=== PATIENT | male | born 1955 | race Caucasian/White ===

== ENCOUNTER → 2016-06-04 | Outpatient (CLI) | payer BC ==
[~2016-06-04] MED LIST: ACET325T96 PO; CITA20TA9 PO; EMPTY 8 DRAM VIAL ONE; FEXO1TAB45 PO; GADAVIST IV PRN; LEVE100021 PO; MOME50SP5; ONFI 10 MG PO; PROC1TAB5 PO; VNCI1 IV; [UNRECOGNIZED DRUG - CODE] PO; [UNRECOGNIZED DRUG - CODE] PO; [UNRECOGNIZED DRUG - OTHER] OPB
--- NOTE | 2016-06-04 21:08 | DIAGNOSTIC IMAGING REPORT ---
MRI OF THE BRAIN COMBO CLINICAL HISTORY: Seizure. History of Oligodendroglioma resection. COMPARISON STUDY: Previous MRI examinations of the brain, most recently dated 04/05/2016. TECHNIQUE: MRI of the brain was performed utilizing various T1 and T2-weighted sequences in the axial, sagittal, and coronal planes. Contrast-enhanced sequences were acquired following the administration of 7 cc of Gadavist. The examination is performed utilizing the seizure protocol. FINDINGS: Brain parenchyma: Again seen is encephalomalacia in the high right posterior parietal lobe from previous tumor resection. Serpiginous foci of surrounding T1 hyperintense signal is unchanged from prior studies, and likely represents postoperative gliosis/hemosiderin deposition. Overlying dural thickening is likely related to previous surgery. There is significant T2 signal abnormality identified surrounding the operative site, extending anteriorly along the superior margin of the sylvian fissure. This involves both white matter and thompson matter. No abnormal postcontrast enhancement is seen and this is unchanged from 04/05/2016. There is mild subcortical and periventricular microangiopathic disease. There is no hemorrhage or mass effect. There is no restricted diffusion to suggest acute ischemia. No extra-axial fluid collection is seen. The cerebellar tonsils are normal in configuration. Ventricles, sulci, and cisterns: Normal in configuration. Pituitary and sella: Unremarkable. Intracranial vasculature: Normal flow voids are maintained at the skull base. Orbits: The bony orbits are grossly intact. Orbital contents are normal in appearance. Sinuses and mastoids: A retention cyst is again seen in the left maxillary antrum. The remaining paranasal sinuses are clear. The mastoid air cells are well pneumatized. Calvarium: There are postoperative changes from right parietal craniotomy. No destructive bony lesion is seen. Cervical cord: Partially visualized cervical spinal cord is normal in morphology and signal intensity. IMPRESSION: 1. No acute intracranial abnormality. 2. Again seen are postoperative changes from right parietal lobe tumor resection. 3. Again seen is T2 hyperintense signal abnormality adjacent to the operative site which extends anteriorly along the sylvian fissure. There is no abnormal enhancement identified, and this is indeterminant. This is unchanged from recent prior studies and could represent postoperative/posttreatment change. Recurrent/residual tumor with be impossible to exclude by imaging. Electronically signed by: Carlos Yin M.D. 06/04/2016 9:07 PM Dictated Date/Time: 06/04/2016 9:01 PM
== END | disposition home or self-care (01) ==
LOC: C.MRI 19:03
PROVIDERS: ATTEND Internal Medicine Hematology & Oncology
DX: C71.2 Malignant neoplasm of temporal lobe (principal); R90.89 Other abnormal findings on diagnostic imaging of central nervous system

== ENCOUNTER → 2016-08-06 | Outpatient (CLI) | payer BC ==
[~2016-08-06] MED LIST changes: -EMPTY 8 DRAM VIAL ONE
--- NOTE | 2016-08-06 14:46 | DIAGNOSTIC IMAGING REPORT ---
MRI OF THE BRAIN WITHOUT AND WITH IV CONTRAST CLINICAL HISTORY: OLIGODENDROGLIOMA COMPARISON STUDY: 06/04/2016 TECHNIQUE: MRI of the brain was performed from the vertex to the skull base utilizing various T1 and T2 weighted sequences. Following the IV administration of 7 mL of Gadavist contrast, additional enhanced images were obtained. FINDINGS: Sagittal T1, axial diffusion, proton density and T2 weighted axial, coronal FLAIR, and pre and post axial T1-weighted images were acquired. These were supplemented with post gadolinium coronal T1 weighted images. There are postsurgical changes of a right parietal craniotomy. There is a stable cavity at the resection site. There are surrounding blood products and T2 and flair edema. There is no significant postcontrast enhancement. Axial diffusion-weighted images reveal no evidence of acute or subacute infarction. There is no evidence of ventricular dilatation. Proton density T2-weighted and FLAIR images reveal edema surrounding the right parietal lobe resection site. There are no abnormal flow voids. There is no evidence of pathologic enhancement. IMPRESSION: 1. Postsurgical changes of a right craniotomy and parietal lobe tumor resection 2. Stable T2 and FLAIR signal abnormalities persist adjacent to the operative site. 3. No evidence of pathologic enhancement 4. No evidence of acute or subacute infarction 5. No evidence of hydrocephalus 6. No significant change from the preceding study Electronically signed by: Ronald Castle M.D. 08/06/2016 2:45 PM Dictated Date/Time: 08/06/2016 2:15 PM
== END | disposition home or self-care (01) ==
LOC: C.MRI 11:50
PROVIDERS: ATTEND Nurse Practitioner Family
DX: C71.2 Malignant neoplasm of temporal lobe (principal); Z98.890 Other specified postprocedural states

== ENCOUNTER → 2016-11-08 | Outpatient (CLI) | payer BC ==
--- NOTE | 2016-11-08 11:33 | DIAGNOSTIC IMAGING REPORT ---
BRAIN COMBO HISTORY:61 yearsMaleOLIGODENDROGLIOMA . History of prior chemotherapy and radiation 2014 and 2015. Craniotomy was performed in July 2006. This is a follow-up exam without new symptomatology. COMPARISON: Brain MR 08/06/2016, 09/28/2015 and 08/21/2005 TECHNIQUE: Multiplanar multisequence MRI of the brain was obtained both with and without the use of 7.4 mL Gadavist. FINDINGS: There is no restricted diffusion. The midline structures including the corpus callosum, brainstem, optic chiasm and cerebellar tonsils are unremarkable the sagittal T1 series. There is a 5 x 8 x 5 mm circumscribed low T1 and high T2 signal lesion within the right pituitary gland which appears unchanged from 09/28/2015. On study dated 10/25/2014, this lesion only measured up to 4 mm. Postsurgical changes of prior right parietal craniotomy and tumor resection with a persistent T2 hyperintense cavity of the right parietal lobe, 3.3 x 2.5 cm which appears unchanged. There is associated encephalomalacia and areas of increased T2/FLAIR signal adjacent to the cavity suggesting areas of gliosis. Peripheral blooming artifact and minimal enhancement is unchanged. No acute intracranial hemorrhage, midline shift, hydrocephalus, new mass or extra-axial collections. Mild central atrophy. There are a few areas of scattered T2/flair prolongation within the subcortical and periventricular white matter of the humeral hemispheres bilaterally which is unchanged suggesting chronic microischemic changes. Post contrast images moderately motion degraded. There is mild ethmoid and maxillary sinus disease. Flow voids at the skull base appear unremarkable. She is are within normal limits. IMPRESSION: 1. Stable exam with redemonstration of postsurgical changes consisting of prior right parietal craniotomy with mass resection. Surgical cavity within the right parietal lobe distribution with surrounding gliosis and minimal enhancement appears unchanged. No new areas of enhancement or suspicious abnormalities are identified. 2. No hydrocephalus. 3. Mild Background cerebral atrophy with chronic microvascular ischemic changes. 4. Circumscribed 5 x 8 x 5 mm nonenhancing cystic lesion of the right pituitary gland appears unchanged from 09/28/2015, however appears slightly enlarged from study dated 10/25/2014. Differential considerations would include cystic adenoma or arachnoid cyst. Attention on follow-up recommended. The above report was generated using voice recognition software. It may contain grammatical, syntax or spelling errors. Electronically signed by: Van Corrales 11/08/2016 11:32 AM Dictated Date/Time: 11/08/2016 11:16 AM
== END | disposition home or self-care (01) ==
LOC: C.MRIBC 08:32
PROVIDERS: ATTEND Nurse Practitioner Family
DX: H34.8192 Central retinal vein occlusion, unspecified eye, stable (principal)

== ENCOUNTER → 2017-03-03 | Outpatient (CLI) | payer BC ==
--- NOTE | 2017-03-03 17:34 | DIAGNOSTIC IMAGING REPORT ---
MRI OF THE BRAIN WITHOUT AND WITH IV CONTRAST CLINICAL HISTORY: Oligodendroglioma. COMPARISON STUDY: MRI of the brain November 18, 2016. TECHNIQUE: Utilizing a 1.5 Kathryn magnet and dedicated coil, multiplanar, multiecho imaging of the brain was performed pre and postcontrast administration. IV administration of 7.5 mL of Gadavist contrast was uneventful. FINDINGS: There are no areas of restricted diffusion. No acute intracranial hemorrhage, midline shift or mass effect is present. A previous right parietal craniotomy is noted. Resection cavity is unchanged in size, measuring 3.3 x 2.5 cm. There is inherent T1 hyperintensity along the resection margin which is unchanged and suggests gliosis or laminar necrosis. No definite enhancement is noted. Adjacent T2 hyperintensity is unchanged. A 8 mm x 5 mm T2 hyperintense right pituitary gland lesion is unchanged. This demonstrates no significant enhancement. There are no additional intracranial masses. Ventricular system is normal. Basilar cisterns are patent. There are no extra-axial collections. Flow-voids in the major intracranial vessels are present. Calvarial signal is unremarkable. IMPRESSION: 1. No MRI evidence for recurrent or residual malignancy status post right craniotomy. No enhancement along the resection margin. Stable adjacent T2 hyperintensity. 2. No change in the 8 mm x 5 mm cystic right pituitary gland lesion. Electronically signed by: Marty Mckinnon M.D. 03/03/2017 5:33 PM Dictated Date/Time: 03/03/2017 4:11 PM
== END | disposition home or self-care (01) ==
LOC: C.MRI 14:44
PROVIDERS: ATTEND Nurse Practitioner Family
DX: C71.2 Malignant neoplasm of temporal lobe (principal)

== ENCOUNTER → 2017-05-29 | Outpatient (CLI) | payer OTHER ==
[~2017-05-29] MED LIST changes: -GADAVIST IV PRN
== END | disposition home or self-care (01) ==
LOC: C.LAB1850 11:01
PROVIDERS: ATTEND Urology
DX: N40.1 Benign prostatic hyperplasia with lower urinary tract symptoms (principal); R36.1 Hematospermia

== ENCOUNTER → 2017-06-05 | Outpatient (CLI) | payer OTHER ==
--- NOTE | 2017-06-05 15:03 | DIAGNOSTIC IMAGING REPORT ---
MRI OF THE BRAIN COMBO CLINICAL HISTORY: Seizure. History of Oligodendroglioma resection. COMPARISON STUDY: Previous MRI examinations of the brain, most recently dated 03/03/2017. TECHNIQUE: MRI of the brain was performed utilizing various T1 and T2-weighted sequences in the axial, sagittal, and coronal planes. Contrast-enhanced sequences were acquired following the administration of 7.5 cc of Gadavist. The examination is performed utilizing the seizure protocol. FINDINGS: Brain parenchyma: Again seen is encephalomalacia in the high right posterior parietal lobe at the site of previous tumor resection. Serpiginous foci of surrounding T1 hyperintense signal is unchanged from prior studies and likely represents postoperative gliosis/hemosiderin deposition. Overlying dural thickening is unchanged and likely related to previous surgery. There is unchanged T2 signal abnormality subjacent to the resection cavity involving both white matter and thompson matter. No abnormal postcontrast enhancement is seen and this is unchanged from 03/03/2017. There is mild subcortical and periventricular microangiopathic disease. There is no hemorrhage or mass effect. There is no restricted diffusion to suggest acute ischemia. No extra-axial fluid collection is seen. The cerebellar tonsils are normal in configuration. Ventricles, sulci, and cisterns: Normal in configuration. Pituitary and sella: A 7 mm cystic focus in the pituitary gland is unchanged. Intracranial vasculature: Normal flow voids are maintained at the skull base. Orbits: The bony orbits are grossly intact. Orbital contents are normal in appearance. Sinuses and mastoids: A retention cyst is again seen in the left maxillary antrum. The remaining paranasal sinuses are clear. The mastoid air cells are well pneumatized. Calvarium: There are postoperative changes from right parietal craniotomy. No destructive bony lesion is seen. Cervical cord: Partially visualized cervical spinal cord is normal in morphology and signal intensity. IMPRESSION: 1. No acute intracranial abnormality. 2. Again seen are postoperative changes from right parietal lobe tumor resection. 3. There is no evidence of recurrent or residual enhancing tumor at the resection site. T2 hyperintense signal subjacent to the operative site is unchanged. Electronically signed by: Carlos Yin M.D. 06/05/2017 3:01 PM Dictated Date/Time: 06/05/2017 2:55 PM
== END | disposition home or self-care (01) ==
LOC: C.MRI 14:00
PROVIDERS: ATTEND Internal Medicine Hematology & Oncology
DX: C71.2 Malignant neoplasm of temporal lobe (principal)

== ENCOUNTER → 2017-09-16 | Outpatient (CLI) | payer OTHER ==
[~2017-09-16] MED LIST changes: +ACET-1693 PO; -ACET325T96 PO; +PROC10TA PO; -PROC1TAB5 PO
[2017-09-16 18:19] LABS: CREATININE 0.99 mg/dl (0.60-1.40)
== END | disposition home or self-care (01) ==
LOC: C.LAB 16:35
PROVIDERS: ATTEND Internal Medicine Hematology & Oncology
DX: C71.2 Malignant neoplasm of temporal lobe (principal)

== ENCOUNTER → 2017-09-17 | Outpatient (CLI) | payer OTHER ==
[~2017-09-17] MED LIST changes: +GADAVIST IV PRN
--- NOTE | 2017-09-17 15:32 | DIAGNOSTIC IMAGING REPORT ---
MRI OF THE BRAIN WITHOUT AND WITH IV CONTRAST CLINICAL HISTORY: OLIGODENDROGLIOMA COMPARISON STUDY: June 05, 2017 TECHNIQUE: MRI of the brain was performed from the vertex to the skull base utilizing various T1 and T2 weighted sequences. Following the IV administration of 8 mL of Gadavist contrast, additional enhanced images were obtained. FINDINGS: Sagittal T1, axial diffusion, proton density and T2 weighted axial, coronal FLAIR, and pre and post axial T1-weighted images were acquired. These were supplemented with post gadolinium coronal T1 weighted images. There are postsurgical changes of a right parietal craniotomy. There is a 24 mm resection cavity with surrounding T2 edema unchanged the prior study. There is surrounding increased T1 signal consistent with postsurgical mineralization/petechial hemorrhage. This remain stable. There is no evidence for pathologic parenchymal enhancement. There is minimal overlying dural thickening and enhancement which is felt to be postsurgical. Axial diffusion-weighted images reveal no evidence of acute or subacute infarction. There is no evidence of ventricular dilatation. Proton density T2-weighted and FLAIR images reveal in addition to the edema surrounding the right parietal resection cavity scattered foci of increased T2 signal within the white matter, likely on a small vessel basis. There are no abnormal flow voids. There is no pathologic enhancement to indicate recurrent neoplasm. There is a stable 7 mm cystic lesion within the right side of the pituitary. There is a 12 mm polypoid density within the left maxilla sinus unchanged the prior study IMPRESSION: 1. Postoperative changes of a right parietal craniotomy with tumor resection. No evidence of tumor recurrence 2. Stable 7 mm cystic lesion within the right size of the pituitary 3. No acute intracranial findings. Electronically signed by: Ronald Castle M.D. 09/17/2017 3:31 PM Dictated Date/Time: 09/17/2017 3:25 PM
== END | disposition home or self-care (01) ==
LOC: C.MRI 14:41
PROVIDERS: ATTEND Nurse Practitioner Family
DX: C71.2 Malignant neoplasm of temporal lobe (principal); E23.7 Disorder of pituitary gland, unspecified

== ENCOUNTER → 2017-09-22 | Outpatient (CLI) | payer OTHER ==
[~2017-09-22] MED LIST changes: -GADAVIST IV PRN
[2017-09-22 18:36] LABS: BASO % 0.2 %; BASO ABS # 0.01 K/uL (0-0.2); EOS % 7.8 %; EOS ABS # 0.37 K/uL (0-0.5); HEMATOCRIT 35.1 % (42-52); HEMOGLOBIN 11.7 g/dL (14.0-18.0); IG# 0.01 K/uL (0.00-0.02); LYMPH % 21.2 %; LYMPH ABS # 1.01 K/uL (1.2-3.4); MEAN CELL VOLUME 92.6 fL (80-100); MEAN CORPUSCULAR HEMOGLOBIN 30.9 pg (25-34); MEAN CORPUSCULAR HGB CONC 33.3 g/dl (32-36); MEAN PLATELET VOLUME 10.1 fL (7.4-10.4); MONO % 8.4 %; NEUT % 62.2 %; NEUT ABS # 2.96 K/uL (1.4-6.5); PLATELET COUNT 180 K/uL (130-400); RED CELL DISTRIBUTION WIDTH CV 12.1 % (11.5-14.5); RED CELL DISTRIBUTION WIDTH SD 41.4 fL (36.4-46.3); WHITE BLOOD COUNT 4.76 K/uL (4.8-10.8)
[2017-09-22 18:58] LABS: ALKALINE PHOSPHATASE 82 U/L (45-117); ALT/SGPT 27 U/L (12-78); AST/SGOT 14 U/L (15-37); BLOOD UREA NITROGEN 20 mg/dl (7-18); CALCIUM 8.7 mg/dl (8.5-10.1); CARBON DIOXIDE 28 mmol/L (21-32); CREATININE 0.98 mg/dl (0.60-1.40); GLUCOSE 94 mg/dl (70-99); POTASSIUM 4.2 mmol/L (3.5-5.1); SODIUM 141 mmol/L (136-145); TOTAL PROTEIN 7.4 gm/dl (6.4-8.2)
== END | disposition home or self-care (01) ==
LOC: C.LABSPEC 17:02
PROVIDERS: ATTEND Internal Medicine Hematology & Oncology
DX: C71.2 Malignant neoplasm of temporal lobe (principal)

== ENCOUNTER → 2017-12-19 | Outpatient (CLI) | payer OTHER ==
[~2017-12-19] MED LIST changes: +GADAVIST IV PRN
--- NOTE | 2017-12-19 09:39 | DIAGNOSTIC IMAGING REPORT ---
BRAIN COMBO CLINICAL HISTORY: 62 years-old Male presenting with OLIGODENDROGLIOMA, fatigue, history of seizures, follow-up. TECHNIQUE: Multisequence, multiplanar MR imaging of the brain was performed before and after the administration of intravenous contrast. IV contrast: 8 mL of Gadavist. COMPARISON: 09/17/2017. FINDINGS: Localizer images: Unremarkable. Postsurgical changes of right parietal craniotomy with stable postsurgical changes of the right parietal lobe resection cavity with cystic encephalomalacia and gliosis. The degree of surrounding T2/FLAIR hyperintensity in the right parietal lobe white matter is unchanged from prior. A rim of intrinsic T1 hyperintensity is again noted in the resection cavity. No convincing evidence of enhancement on postcontrast imaging. Ventricles and sulci normal in size. Scattered periventricular and subcortical white matter T2/FLAIR hyperintensities, nonspecific but likely chronic small vessel ischemic change. Stable 7 mm nonenhancing cystic lesion in the right aspect of the anterior pituitary. No mass effect or midline shift. No restricted diffusion to suggest acute ischemia. No hemorrhage. No extra-axial fluid collection. T2 skull base flow voids preserved. Bone marrow signal intensity within the calvarium within normal limits. Polypoid mucosal thickening in the left maxillary sinus. IMPRESSION: 1. Stable postsurgical changes of the right parietal craniotomy and right parietal lobe resection cavity. No evidence of recurrent disease. 2. Stable 7 mm pituitary cyst. 3. No acute intracranial pathology. Electronically signed by: Santhosh Jiang M.D. 12/19/2017 9:38 AM Dictated Date/Time: 12/19/2017 9:28 AM
== END | disposition home or self-care (01) ==
LOC: C.MRI 08:01
PROVIDERS: ATTEND Nurse Practitioner Family
DX: C71.2 Malignant neoplasm of temporal lobe (principal); Z98.890 Other specified postprocedural states; E23.6 Other disorders of pituitary gland

== ENCOUNTER 2024-11-13 11:56 | Observation (INO) ==
--- NOTE | 2024-11-13 12:14 | Emergency Department Note ---
Impression & Plan Syncope, Fall, Weakness ED Provider Note NAME: SHARATH LEIVA AGE: 69 SEX: M : 1955 ARRIVES VIA: Ambulance INFORMANT: Patient ED PROVIDER(S): Zay Harden DO CHIEF COMPLAINT: Fall HPI: Patient is a 69-year-old male who presents to the ER With a past Medical History of Brain Tumor epilepsy, hyperglycemia who presents to the ER for fall x 2 today. Patient notes that he was walking and fell. Once he fell while he was in the bathroom and he feels the floor was wet but he notes he was off balance. Denies any headache currently but notes he had 1 earlier as he did fall backwards and hit his head. No neck pain. He does not remember falling the second time. Per report from EMS he was caught and fell onto his knees. Denies any chest pain shortness of breath preceding or following the event. No focal weakness or numbness in the arms or legs. No other complaints. ADDITIONAL HISTORY OBTAINED: Per HPI Chronic Medical/Social Conditions Affecting Care: Per HPI PAST MEDICAL HISTORY:See Below PAST SURGICAL HISTORY:See Below FAMILY HISTORY:See Below SOCIAL HISTORY:See Below HOME MEDICATIONS:See Below ALLERGIES:See Below VITALS:See Below PHYSICAL EXAMINATION: GENERAL: alert, well appearing, well nourished, no distress, non-toxic HEAD: normal cephalic, atraumatic EYE EXAM: normal conjunctiva, PERRL and EOM's grossly intact OROPHARYNX: no exudate, no erythema, lips, buccal mucosa, and tongue normal and mucous membranes are moist NECK: supple, no nuchal rigidity, no adenopathy, non-tender CHEST: stable to compression anteriorly and posteriorly LUNGS: clear to auscultation. Normal chest wall mechanics HEART: no murmurs, S1 normal and S2 normal ABDOMEN: abdomen soft, non-tender, normo-active bowel sounds, no masses, no rebound or guarding. PELVIS: stable to compression anteriorly and posteriorly BACK: Back is symmetrical on inspection and there is no deformity, no midline tenderness, no CVA tenderness. UPPER EXTREMITIES: full active and passive range of motion of all joints without tenderness to palpation LOWER EXTREMITIES: full active and passive range of motion of all joints without tenderness to palpation NEURO EXAM: Normal sensorium, cranial nerves II-XII intact, normal speech, no weakness of arms, no weakness of legs. GCS: 15. MEDICAL DECISION MAKING: Patient is a 69-year-old male who presents to the ER with a past medical history as described above who presents to the ER for syncopal episode and a fall. IV was established and blood work was obtained. Labs show no significant leukocytosis or anemia. D-dimer was up at 620 but age-adjusted is negative. BMP with slightly elevated chloride at 108. LFTs and bilirubin were reassuring. Troponin was negative. Lipase normal. UA was clean. CT head and cervical spine was negative. Chest x-ray was clean. Case was discussed with hospitalist for further evaluation management and treatment. Consults/Care Managements Discussions: Per [facility] Triage Nursing notes reviewed. Limited review of prior medical records performed Vital Signs: reviewed and remarkable for no significant abnormalities Differential diagnosis: Differential diagnosis includes etiologies such as vasovagal event, infection, hypoglycemia, electrolyte abnormalities, cardiac sources, intracerebral event, toxicologic, neurologic, as well as others were entertained. ER treatment provided: See below Diagnostics interpreted by me include EKG and cardiac monitoring as listed below: -Cardiac Monitoring: An order was placed for continuous cardiac monitoring. The monitor shows a rate of 70 with sinus rhythm. -ECG: Sinus rhythm rate 72 Normal axis No PVCs QTc 433 -Laboratory studies:Interpreted by me as stated above in MDM and shown below. Imaging studies: Xrays: As interpreted by me: Portable AP upright 1 view of the chest shows no focal infiltrate CTs show: CT head and cervical spine were negative per radiology Procedures:none Critical Care: None Past Med/Surg History Problem List (Updated 11/13/24 @ 18:02 by Zay Harden DO) Weakness (Acute) Seizure disorder seizure activity after brain surgery Syncope (Acute) Fall (Acute) Allergic rhinitis (Chronic) BPH with obstruction/lower urinary tract symptoms (Chronic) Depression (Chronic) Medical History (Updated 11/13/24 @ 18:02 by Zay Harden DO) Pituitary adenoma Anxiety Major neurocognitive disorder Moderate obstructive sleep apnea Incomplete emptying of bladder Hyperglycemia Frequency-urgency syndrome Nocturia Partial epilepsy, with intractable epilepsy, poorly controlled Partial epilepsy without impairment of consciousness Fatigue Pituitary abnormality Nocturnal hypoxemia Oligodendroglioma Laryngopharyngeal reflux Impotence, organic Eczema H/O brain tumor Left arm weakness Left hemiparesis Oligodendroglioma History of radiation therapy History of chemotherapy Fatigue Surgical History H/O colonoscopy (~2016) H/O hernia repair H/O brain surgery (~2006) Family History Sister Cancer Liver cancer Mother Cancer Bladder cancer Family/Other Ulcerative colitis Allergic rhinitis Social History (Updated 11/13/24 @ 17:44 by ELY Peterson) Smoking Status: Never smoker Hx Alcohol Use: No Hx Substance Use: No Preferred Language: Arabic Communication Ability: Effective Jalousie Installer Required: No Beliefs That Will Affect Care: None marital status: Current Living Situation: Personal Care Facility current occupational status: disabled Other Information That Helps Us Care for You: No Feels Safe at Home: Yes Safety Concerns: Feels Safe At This Time Assistive Devices: Cane and Glasses Allergies Allergies Allergy/AdvReac Type Severity Reaction Status Date / Time Fish Containing Products Allergy Severe Vomiting Verified 12/04/22 11:15 fish derived Allergy Severe Vomiting Verified 12/04/22 11:15 pollen extracts Allergy Intermediate ITCHY Verified 12/04/22 11:15 EYES, SNEEZING, CONGESTION Home Meds Home Medications Medication Instructions Recorded Confirmed venlafaxine 150 mg tablet,extended 150 mg PO DAILY 10/30/20 11/13/24 release 24 hr levothyroxine 137 mcg tablet 137 mcg PO DAILYBB 09/26/21 11/13/24 sennosides 8.6 mg tablet (senna) 8.6 mg PO HS 09/26/21 11/13/24 acetaminophen 325 mg tablet 325 mg PO QID PRN Pain 11/13/24 11/13/24 fluticasone propionate 50 2 spray intranasal BID 11/13/24 11/13/24 mcg/actuation nasal spray,suspension loratadine 10 mg tablet 10 mg PO DAILY 11/13/24 11/13/24 Previous Rx's Medication Instructions Recorded levetiracetam 500 mg tablet 1,000 mg (2 x 500 mg) PO BID 90 12/04/22 days #360 tabs clobazam 10 mg tablet (Onfi) 10 mg PO HS 30 days #30 tabs 11/19/23 dutasteride 0.5 mg capsule 0.5 mg PO DAILY #90 caps 04/16/24 Results & Data (ED) Vital Signs Vital Signs - 24 hr 11/13/24 12:05 11/13/24 12:07 11/13/24 12:11 Temperature 37.0 C Temperature Source Oral Pulse Rate 71 69 70 Pulse Rate from SpO2 Sensor Pulse Rhythm Regular Regular Pulse Strength Normal Respiratory Rate 16 16 Respiratory Effort / Characteristics Non-Labored Spontaneous Respiratory Depth Normal Respiratory Pattern Regular Blood Pressure 126/80 Blood Pressure Mean 95 Blood Pressure Position Semi-fowlers Pulse Oximetry 94 94 Oxygen Delivery Method Room Air Room Air Sepsis Recent Fever Within 48 Hours No Sepsis New/Unexplained Change in Mental Status No Sepsis Action Taken by Nursing No Action Required 11/13/24 13:03 11/13/24 13:30 11/13/24 14:09 Temperature Temperature Source Pulse Rate 65 62 Pulse Rate from SpO2 Sensor 65 62 Pulse Rhythm Pulse Strength Respiratory Rate 13 22 Respiratory Effort / Characteristics Respiratory Depth Respiratory Pattern Blood Pressure 154/96 H 146/92 H 151/89 H Blood Pressure Mean 115 118 109 Blood Pressure Position Pulse Oximetry 90 95 Oxygen Delivery Method Room Air Room Air Sepsis Recent Fever Within 48 Hours Sepsis New/Unexplained Change in Mental Status Sepsis Action Taken by Nursing 11/13/24 15:30 11/13/24 16:00 11/13/24 16:15 Temperature Temperature Source Pulse Rate 61 60 60 Pulse Rate from SpO2 Sensor 62 60 Pulse Rhythm Pulse Strength Respiratory Rate 17 18 Respiratory Effort / Characteristics Respiratory Depth Respiratory Pattern Blood Pressure 158/110 H 157/108 H Blood Pressure Mean 126 124 Blood Pressure Position Pulse Oximetry 91 97 Oxygen Delivery Method Room Air Room Air Sepsis Recent Fever Within 48 Hours Sepsis New/Unexplained Change in Mental Status Sepsis Action Taken by Nursing 11/13/24 16:30 Temperature Temperature Source Pulse Rate 66 Pulse Rate from SpO2 Sensor 66 Pulse Rhythm Pulse Strength Respiratory Rate 16 Respiratory Effort / Characteristics Respiratory Depth Respiratory Pattern Blood Pressure 163/116 H Blood Pressure Mean 131 Blood Pressure Position Pulse Oximetry 95 Oxygen Delivery Method Room Air Sepsis Recent Fever Within 48 Hours Sepsis New/Unexplained Change in Mental Status Sepsis Action Taken by Nursing Laboratory Data 11/13/24 12:10 11/13/24 12:10 Lab Results 11/13/24 11/13/24 11/13/24 Range/Units 12:10 12:38 14:03 WBC 7.66 (4.8-10.8) K/ul RBC 4.29 L (4.70-6.10) M/uL Hgb 12.3 L (14.0-18.0) g/dl Hct 38.1 L (42.0-52.0) % MCV 88.8 (80.0-100.0) fL MCH 28.7 (25.0-34.0) pg MCHC 32.3 (32.0-36.0) g/dL RDW Std Deviation 41.0 (36.4-46.3) fL RDW Coeff of Rajat 12.7 (11.5-14.5) % Plt Count 230 (130-400) K/uL MPV 11.3 (9.4-12.4) fL Immature Gran % (Auto) 0.3 % Neut % (Auto) 64.0 % Lymph % (Auto) 20.6 % [place] % (Auto) 9.9 % Eos % (Auto) 4.7 % Baso % (Auto) 0.5 % Neut # (Auto) 4.90 (1.40-6.50) K/uL Lymph # (Auto) 1.58 (1.20-3.40) K/uL [place] # (Auto) 0.76 H (0.11-0.59) K/uL Eos # (Auto) 0.36 (0.00-0.50) K/uL Baso # (Auto) 0.04 (0.00-0.20) K/uL Immature Gran # (Auto) 0.02 (0.01-0.20) K/uL D-Dimer 620 H* (0-500) ug/L FEU Sodium 139 (136-145) mmol/L Potassium 4.2 (3.5-5.1) mmol/L Chloride 108 H (98-107) mmol/L Carbon Dioxide 25 (21-32) mmol/L Anion Gap 6 (3-11) BUN 22 (6-23) mg/dl Creatinine 1.16 (0.6-1.4) mg/dl Est Cr Clr Drug Dosing 71.6 ml/min eGFR 69.03 BUN/Creatinine Ratio 19.0 (10-20) Glucose 102 H (70-99(Fasting)) mg/dl Calcium 8.8 (8.6-10.3) mg/dl Total Bilirubin 0.3 (0.2-1.0) mg/dl AST 15 (13-39) U/L ALT 14 (7-52) U/L Alkaline Phosphatase 93 (34-104) U/L Troponin I High Sens 3.9 (0-20) pg/ml Total Protein 7.2 (6.0-8.3) gm/dl Albumin 3.7 (3.4-5.0) gm/dl Globulin 3.5 (2.5-4.0) gm/dl Albumin/Globulin Ratio 1.1 (0.9-2) Lipase 14 (11-82) U/L Urine Color Yellow Urine Appearance Clear (Clear) Urine pH 5.5 (4.5-7.5) Ur Specific [place] 1.009 (1.000-1.030) Urine Protein Negative (Negative) Urine Glucose (UA) Negative (Negative) Urine Ketones Negative (Negative) Urine Blood Negative (Negative) Urine Nitrite Negative (Negative) Urine Bilirubin Negative (Negative) Urine Urobilinogen Negative (Negative) Ur Leukocyte Esterase Negative (Negative) Urine Comment Administered Medications Discontinued Medications Sodium Chloride (Nss) 1,000 mls @ 999 mls/hr IV .Q1H1M ONE Stop: 11/13/24 13:10 Last Infusion: 11/13/24 14:26 Dose: Infused Documented By: MSJoan Admin: 11/13/24 12:22 Dose: 999 mls/hr Documented By: MS Imaging Data Radiologist's Impression: Cervical Spine CT 11/13/24 12:10 EXAM: CT Head and Cervical Spine Without Intravenous Contrast INDICATION: Trauma TECHNIQUE: Axial computed tomography images of the head/brain and cervical spine without intravenous contrast. Sagittal and coronal reformatted images were created and reviewed. This CT exam was performed using one or more of the following dose reduction techniques: automated exposure control, adjustment of the mA and/or kV according to patient size, and/or use of iterative reconstruction technique. COMPARISON: 09/26/2021 FINDINGS: Limitations: None. Brain and extra-axial spaces: Stable right frontal encephalomalacia with overlying cortical calcification. Slight increased periventricular white matter chronic small vessel ischemic gliosis. No acute infarct. No hemorrhage. No extra-axial fluid collection or hydrocephalus. Skull: Right craniotomy. No acute osseous abnormality. Sinuses: No layering fluid in the visualized portions of the paranasal sinuses. Mastoid air cells: No mastoid effusion. Orbits: No significant abnormality noted. Vertebrae: Stable cervical osteoporosis. C2-C3 block vertebra unchanged. Stable facet arthrosis, spondylosis and marked uncal spurring particularly on the right at C5-C6 and bilateral C6-C7. No fracture or subluxation. Discs/spinal canal/neural foramina: Moderate disc space narrowing C5-C6. Mild to moderate narrowing at other levels. There is central disc protrusion C3-C4 without stenosis. There is moderate stenosis of the right lateral recess at C5-C6 and right foraminal stenosis. Similar changes noted on the left side at C6-C7. Soft tissues: No significant abnormality noted. Vasculature: No acute abnormality noted. Lung apices: No significant abnormality noted. Pleural space: No visualized pleural effusion or pneumothorax. IMPRESSION: 1. Chronic changes in the brain. No acute disease. 2. No cervical fracture. Stable degenerative changes. ACT 112: N/A Electronically signed by Nadeen Burgos 11-13-2024 12:51 PM Chest X-Ray 11/13/24 12:10 EXAM: Radiograph of the Chest 1 View INDICATION: Chest pain TECHNIQUE: Frontal view of the chest. COMPARISON: 07/03/2021 FINDINGS: Lungs and pleural spaces: Mild streaky atelectasis in the lower lung zones. No consolidation or pulmonary edema. No pleural effusion or pneumothorax. Heart: Shape and configuration within normal limits allowing for technique. Mediastinum: Normal contour. Bones/joints: No fracture, erosion or dislocation. Soft tissues: No abnormality noted. No radiopaque foreign body noted. Vasculature: Stable ectatic aorta. Upper abdomen: No abnormality noted. IMPRESSION: Mild streaky atelectasis in the lower lung zones. ACT 112: N/A Electronically signed by Nadeen Burgos 11-13-2024 13:[address] 11/13/24 12:10 EXAM: CT Head and Cervical Spine Without Intravenous Contrast INDICATION: Trauma TECHNIQUE: Axial computed tomography images of the head/brain and cervical spine without intravenous contrast. Sagittal and coronal reformatted images were created and reviewed. This CT exam was performed using one or more of the following dose reduction techniques: automated exposure control, adjustment of the mA and/or kV according to patient size, and/or use of iterative reconstruction technique. COMPARISON: 09/26/2021 FINDINGS: Limitations: None. Brain and extra-axial spaces: Stable right frontal encephalomalacia with overlying cortical calcification. Slight increased periventricular white matter chronic small vessel ischemic gliosis. No acute infarct. No hemorrhage. No extra-axial fluid collection or hydrocephalus. Skull: Right craniotomy. No acute osseous abnormality. Sinuses: No layering fluid in the visualized portions of the paranasal sinuses. Mastoid air cells: No mastoid effusion. Orbits: No significant abnormality noted. Vertebrae: Stable cervical osteoporosis. C2-C3 block vertebra unchanged. Stable facet arthrosis, spondylosis and marked uncal spurring particularly on the right at C5-C6 and bilateral C6-C7. No fracture or subluxation. Discs/spinal canal/neural foramina: Moderate disc space narrowing C5-C6. Mild to moderate narrowing at other levels. There is central disc protrusion C3-C4 without stenosis. There is moderate stenosis of the right lateral recess at C5-C6 and right foraminal stenosis. Similar changes noted on the left side at C6-C7. Soft tissues: No significant abnormality noted. Vasculature: No acute abnormality noted. Lung apices: No significant abnormality noted. Pleural space: No visualized pleural effusion or pneumothorax. IMPRESSION: 1. Chronic changes in the brain. No acute disease. 2. No cervical fracture. Stable degenerative changes. ACT 112: N/A Electronically signed by Nadeen Burgos 11-13-2024 12:51 PM Discharge Plan Visit Data Chief Complaint: Fall Stated Complaint: falls ED Provider: Zay Harden Discharge Problem: Syncope, Fall, Weakness Condition: Fair Forms Stand Alone Forms: My [employer] Prescriptions Prescriptions: No Action clobazam [Onfi] 10 mg tablet 10 mg PO HS 30 Days Qty: 30 5RF venlafaxine 150 mg tablet extended release 24hr 150 mg PO DAILY levetiracetam 500 mg tablet 1,000 mg PO BID 90 Days Qty: 360 3RF dutasteride 0.5 mg capsule 0.5 mg PO DAILY Qty: 90 3RF levothyroxine 137 mcg tablet 137 mcg PO DAILYBB sennosides [senna] 8.6 mg tablet 8.6 mg PO HS acetaminophen 325 mg Tablet 325 mg PO QID PRN (Reason: Pain) fluticasone propionate 50 mcg/actuation spray,suspension 2 spray INTRANASAL BID loratadine 10 mg Tablet 10 mg PO DAILY Referrals Referrals: Santhosh Noel MD [Outside Practitioners] - Discharge Problem: Syncope Qualifiers: Syncope type: unspecified Qualified Code(s): R55 - Syncope and collapse Fall Qualifiers: Encounter type: initial encounter Qualified Code(s): W19.XXXA - Unspecified fall, initial encounter
[2024-11-13] MEDS: SODIUM CHLORIDE 0.9% 1,000 ML IV ONE (12:22)
[2024-11-13 12:36] LABS: Hematocrit (blood only) 38.1 % (42.0-52.0); Hemoglobin 12.3 g/dl (14.0-18.0); Immature Granulocytes # (auto) 0.02 K/uL (0.01-0.20); Immature Granulocytes % (auto) 0.3 %; Mean Corpuscular Hemoglobin 28.7 pg (25.0-34.0); Mean Corpuscular Volume 88.8 fL (80.0-100.0); Platelet Count 230 K/uL (130-400); RDW Standard Deviation 41.0 fL (36.4-46.3); Red Blood Count 4.29 M/uL (4.70-6.10); White Blood Count 7.66 K/ul (4.8-10.8)
--- NOTE | 2024-11-13 12:52 | CT Scan Report ---
EXAM: CT Head and Cervical Spine Without Intravenous Contrast INDICATION: Trauma TECHNIQUE: Axial computed tomography images of the head/brain and cervical spine without intravenous contrast. Sagittal and coronal reformatted images were created and reviewed. This CT exam was performed using one or more of the following dose reduction techniques: automated exposure control, adjustment of the mA and/or kV according to patient size, and/or use of iterative reconstruction technique. COMPARISON: 09/26/2021 FINDINGS: Limitations: None. Brain and extra-axial spaces: Stable right frontal encephalomalacia with overlying cortical calcification. Slight increased periventricular white matter chronic small vessel ischemic gliosis. No acute infarct. No hemorrhage. No extra-axial fluid collection or hydrocephalus. Skull: Right craniotomy. No acute osseous abnormality. Sinuses: No layering fluid in the visualized portions of the paranasal sinuses. Mastoid air cells: No mastoid effusion. Orbits: No significant abnormality noted. Vertebrae: Stable cervical osteoporosis. C2-C3 block vertebra unchanged. Stable facet arthrosis, spondylosis and marked uncal spurring particularly on the right at C5-C6 and bilateral C6-C7. No fracture or subluxation. Discs/spinal canal/neural foramina: Moderate disc space narrowing C5-C6. Mild to moderate narrowing at other levels. There is central disc protrusion C3-C4 without stenosis. There is moderate stenosis of the right lateral recess at C5-C6 and right foraminal stenosis. Similar changes noted on the left side at C6-C7. Soft tissues: No significant abnormality noted. Vasculature: No acute abnormality noted. Lung apices: No significant abnormality noted. Pleural space: No visualized pleural effusion or pneumothorax. IMPRESSION: 1. Chronic changes in the brain. No acute disease. 2. No cervical fracture. Stable degenerative changes. ACT 112: N/A Electronically signed by Nadeen Burgos 11-13-2024 12:51 PM
[2024-11-13 12:57] LABS: Alanine Aminotransferase 14.0 U/L (7-52); Albumin Globulin Ratio 1.1 (0.9-2); Alkaline Phosphatase 93.0 U/L (34-104); Anion Gap 6.0 (3-11); Bilirubin,Total 0.3 mg/dl (0.2-1.0); Blood Urea Nitrogen 22.0 mg/dl (6-23); Calcium 8.8 mg/dl (8.6-10.3); Carbon Dioxide 25.0 mmol/L (21-32); Chloride 108.0 mmol/L (98-107); Creatinine Clr Calc Pharmacy 71.6 ml/min; Globulin 3.5 gm/dl (2.5-4.0); Glucose 102.0 mg/dl (70-99(Fasting)); Lipase 14.0 U/L (11-82); Potassium 4.2 mmol/L (3.5-5.1); Sodium 139.0 mmol/L (136-145); Total Protein 7.2 gm/dl (6.0-8.3)
--- NOTE | 2024-11-13 13:44 | XRay Report ---
EXAM: Radiograph of the Chest 1 View INDICATION: Chest pain TECHNIQUE: Frontal view of the chest. COMPARISON: 07/03/2021 FINDINGS: Lungs and pleural spaces: Mild streaky atelectasis in the lower lung zones. No consolidation or pulmonary edema. No pleural effusion or pneumothorax. Heart: Shape and configuration within normal limits allowing for technique. Mediastinum: Normal contour. Bones/joints: No fracture, erosion or dislocation. Soft tissues: No abnormality noted. No radiopaque foreign body noted. Vasculature: Stable ectatic aorta. Upper abdomen: No abnormality noted. IMPRESSION: Mild streaky atelectasis in the lower lung zones. ACT 112: N/A Electronically signed by Nadeen Burgos 11-13-2024 13:44 PM
[2024-11-13 14:16] LABS: Appearance Urine Clear (Clear); Glucose Urine UA Negative (Negative)
--- NOTE | 2024-11-13 15:15 | History & Physical Report ---
Date of Service November 13, 2024 Assessment & Plan (1) Fall: (2) Syncope: (3) Oligodendroglioma: (4) Pituitary adenoma: (5) Seizure disorder: (6) Hypothyroidism: (7) BPH with obstruction/lower urinary tract symptoms: (8) Depression: (9) Allergic rhinitis: Plan 69 year old male resident at [facility] with PMH significant for history of oligodendroglioma, pituitary adenoma, neurocognitive disorder, depression, history of seizures, hypothyroidism, allergic rhinitis, and BPH who presented to the ED on 11/13/2024 after suffering one fall and one syncopal episode and is being admitted for syncope work up. Fall Patient presented with mechanical fall, consistent with baseline recurrent falls Denies loss of consciousness but did hit head Head CT and cervical spine CT WNL PT/OT consults Syncope Patient also experienced syncopal episode witnessed by staff at [facility], not consistent with history of falls as described above Vitals stable, labs unremarkable, EKG WNL Concern for breakthrough seizures given history of brain tumor and seizures - discussed with patient about desire to obtain MRI but he preferred to wait for neuro to evaluate Plan: Admit to tele Obtain EEG Obtain echo Orthostatics qshift Neuro checks q4hr Seizure precautions Neuro consult: appreciate recs rita re MRI History of oligodendroglioma Pituitary adenoma Follows with [facility] in [place] s/p resection (2005) followed by radiation and chemotherapy (2014) Under surveillance without tumor progression Serial MRIs every 6 months History of seizures Continue keppra and clobazam Obtain EEG to evaluate for breakthrough seizures as above Hypothyroidism Continue levothyroxine BPH Continue dutasteride Depression Continue venlafaxine Allergic rhinitis Continue loratadine and Flonase DVT Prophylaxis: SQ lovenox Code Status: FULL CODE - As per discussion at bedside with the patient. PCP: Santhosh Noel Disposition: admit to med surg Patient's son and POA, Saad, called for updates. Questions and concerns addressed. Patient seen in collaboration with Dr Royal. Please see addendum. I spent a total of 75 minutes coordinating, documenting and providing care for this patient excluding time spent in the performance of separately billed services or time spent by another provider/QHP. Admission and Anticipated Discharge Date Admission Date: 11/13/2024 History of Present Illness Chief Complaint: fall Primary Care Provider: [facility] 69 year old male resident at [facility] with PMH significant for history of oligodendroglioma, pituitary adenoma, neurocognitive disorder, depression, history of seizures, hypothyroidism, allergic rhinitis, and BPH who presented to the ED on 11/13/2024 after suffering one fall and one syncopal episode. Patient reports he has been having recurrent falls dating back to last summer. He was previously living at home alone and moved into [facility] in May for more assistance. He reports that he falls about once per week, and is always awake and conscious of the falls. He notes they are mostly mechanical in nature and he has hit his head a few times. Today, he reports he took a shower and slipped on the wet floor in the doorway between his bathroom and the rest of his apartment, causing him to fall backwards. His hit did hit against a carpeted floor. He was able to get himself up to the chair and call for assistance. Then it was told to him by two resident assistants that he had a second fall that he has no recollection of. He presumes that he must have lost consciousness during this fall, which is not his baseline. He denies feeling dizzy or lightheaded prior to falls. Denies any recent medication changes other than recently starting dutasteride for BPH. He is actively participating in neurocognitive, physical, and occupational therapy. He uses a cane to walk. Denies fevers, chills, cough, cold symptoms, chest pain, SOB, abdominal pain, N/V/D, dysuria. Allergies Allergy/AdvReac Type Severity Reaction Status Date / Time Fish Containing Products Allergy Severe Vomiting Verified 12/04/22 11:15 fish derived Allergy Severe Vomiting Verified 12/04/22 11:15 pollen extracts Allergy Intermediate ITCHY Verified 12/04/22 11:15 EYES, SNEEZING, CONGESTION Home Medications Medication Instructions Recorded Confirmed Type venlafaxine 150 mg tablet,extended 150 mg PO DAILY 10/30/20 11/13/24 History release 24 hr levothyroxine 137 mcg tablet 137 mcg PO DAILYBB 09/26/21 11/13/24 History sennosides 8.6 mg tablet (senna) 8.6 mg PO HS 09/26/21 11/13/24 History levetiracetam 500 mg tablet 1,000 mg (2 x 500 mg) PO BID 90 12/04/22 11/13/24 Rx days #360 tabs clobazam 10 mg tablet (Onfi) 10 mg PO HS 30 days #30 tabs 11/19/23 11/13/24 Rx dutasteride 0.5 mg capsule 0.5 mg PO DAILY #90 caps 04/16/24 11/13/24 Rx acetaminophen 325 mg tablet 325 mg PO QID PRN Pain 11/13/24 11/13/24 History fluticasone propionate 50 2 spray intranasal BID 11/13/24 11/13/24 History mcg/actuation nasal spray,suspension loratadine 10 mg tablet 10 mg PO DAILY 11/13/24 11/13/24 History Past Med/Surg History Problem List (Updated 11/13/24 @ 18:02 by Zay Harden DO) Weakness (Acute) Seizure disorder seizure activity after brain surgery Syncope (Acute) Fall (Acute) Allergic rhinitis (Chronic) BPH with obstruction/lower urinary tract symptoms (Chronic) Depression (Chronic) Medical History (Updated 11/13/24 @ 18:02 by Zay Harden DO) Pituitary adenoma Anxiety Major neurocognitive disorder Moderate obstructive sleep apnea Incomplete emptying of bladder Hyperglycemia Frequency-urgency syndrome Nocturia Partial epilepsy, with intractable epilepsy, poorly controlled Partial epilepsy without impairment of consciousness Fatigue Pituitary abnormality Nocturnal hypoxemia Oligodendroglioma Laryngopharyngeal reflux Impotence, organic Eczema H/O brain tumor Left arm weakness Left hemiparesis Oligodendroglioma History of radiation therapy History of chemotherapy Fatigue Surgical History H/O colonoscopy (~2016) H/O hernia repair H/O brain surgery (~2006) Family History Sister Cancer Liver cancer Mother Cancer Bladder cancer Family/Other Ulcerative colitis Allergic rhinitis Social History (Updated 11/13/24 @ 17:44 by ELY Peterson) Smoking Status: Never smoker Hx Alcohol Use: No Hx Substance Use: No Preferred Language: Syriac Communication Ability: Effective Nurses Educator Required: No Beliefs That Will Affect Care: None marital status: Current Living Situation: Personal Care Facility current occupational status: disabled Other Information That Helps Us Care for You: No Feels Safe at Home: Yes Safety Concerns: Feels Safe At This Time Assistive Devices: Cane and Glasses Review of Systems Review of Systems: All systems reviewed & are unremarkable except as noted in HPI & below Physical Exam Physical Exam: General/Psych: WD/WN, sitting up in bed, NAD, conversing easily Head: normocephalic, atraumatic Eyes: normal inspection, PERRL, conjunctivae pink ENT: external ear and nose normal, oropharynx normal Neck: normal visual inspection, trachea midline Respiratory: normal respiratory effort, lungs clear to auscultation, no wheeze/rales/rhonchi, no accessory muscle use Cardiovascular: regular rate and rhythm, no murmur/rub/gallop, no JVD Extremities: no cyanosis or clubbing, normal peripheral pulses, no BLE edema Abdomen/GI: normal bowel sounds, soft, nontender, no hepatosplenomegaly Neurologic/MSK: A+Ox3, motor strength 5/5, moves all extremities Skin: no rashes, normal color, warm and dry Results & Data Results & Data Vital Signs (Past 12 Hours) Vital Signs Temp Pulse Resp BP Pulse Ox O2 Del Method 11/13/24 14:09 62 22 151/89 H 95 Room Air 11/13/24 13:30 146/92 H 11/13/24 13:03 65 13 154/96 H 90 Room Air 11/13/24 12:11 70 16 94 Room Air 11/13/24 12:07 37.0 C 69 16 126/80 94 Room Air 11/13/24 12:05 71 Laboratory Results Short CBC 11/13/24 Range/Units 12:10 WBC 7.66 (4.8-10.8) K/ul Hgb 12.3 L (14.0-18.0) g/dl Hct 38.1 L (42.0-52.0) % Plt Count 230 (130-400) K/uL BMP 11/13/24 12:10 Sodium 139 Potassium 4.2 Chloride 108 H Carbon Dioxide 25 BUN 22 Creatinine 1.16 Glucose 102 H Calcium 8.8 Liver Function 11/13/24 Range/Units 12:10 Total Bilirubin 0.3 (0.2-1.0) mg/dl AST 15 (13-39) U/L ALT 14 (7-52) U/L Alkaline Phosphatase 93 (34-104) U/L Albumin 3.7 (3.4-5.0) gm/dl Urine 11/13/24 Range/Units 14:03 Urine Color Yellow Urine Appearance Clear (Clear) Urine pH 5.5 (4.5-7.5) Ur Specific [place] 1.009 (1.000-1.030) Urine Protein Negative (Negative) Urine Glucose (UA) Negative (Negative) I have independently reviewed and interpreted patient's admitting labs including CBC, CMP, UA Diagnostic Findings Cervical Spine CT 11/13/24 12:10 EXAM: CT Head and Cervical Spine Without Intravenous Contrast INDICATION: Trauma TECHNIQUE: Axial computed tomography images of the head/brain and cervical spine without intravenous contrast. Sagittal and coronal reformatted images were created and reviewed. This CT exam was performed using one or more of the following dose reduction techniques: automated exposure control, adjustment of the mA and/or kV according to patient size, and/or use of iterative reconstruction technique. COMPARISON: 09/26/2021 FINDINGS: Limitations: None. Brain and extra-axial spaces: Stable right frontal encephalomalacia with overlying cortical calcification. Slight increased periventricular white matter chronic small vessel ischemic gliosis. No acute infarct. No hemorrhage. No extra-axial fluid collection or hydrocephalus. Skull: Right craniotomy. No acute osseous abnormality. Sinuses: No layering fluid in the visualized portions of the paranasal sinuses. Mastoid air cells: No mastoid effusion. Orbits: No significant abnormality noted. Vertebrae: Stable cervical osteoporosis. C2-C3 block vertebra unchanged. Stable facet arthrosis, spondylosis and marked uncal spurring particularly on the right at C5-C6 and bilateral C6-C7. No fracture or subluxation. Discs/spinal canal/neural foramina: Moderate disc space narrowing C5-C6. Mild to moderate narrowing at other levels. There is central disc protrusion C3-C4 without stenosis. There is moderate stenosis of the right lateral recess at C5-C6 and right foraminal stenosis. Similar changes noted on the left side at C6-C7. Soft tissues: No significant abnormality noted. Vasculature: No acute abnormality noted. Lung apices: No significant abnormality noted. Pleural space: No visualized pleural effusion or pneumothorax. IMPRESSION: 1. Chronic changes in the brain. No acute disease. 2. No cervical fracture. Stable degenerative changes. ACT 112: N/A Electronically signed by Nadeen Burgos 11-13-2024 12:51 PM Chest X-Ray 11/13/24 12:10 EXAM: Radiograph of the Chest 1 View INDICATION: Chest pain TECHNIQUE: Frontal view of the chest. COMPARISON: 07/03/2021 FINDINGS: Lungs and pleural spaces: Mild streaky atelectasis in the lower lung zones. No consolidation or pulmonary edema. No pleural effusion or pneumothorax. Heart: Shape and configuration within normal limits allowing for technique. Mediastinum: Normal contour. Bones/joints: No fracture, erosion or dislocation. Soft tissues: No abnormality noted. No radiopaque foreign body noted. Vasculature: Stable ectatic aorta. Upper abdomen: No abnormality noted. IMPRESSION: Mild streaky atelectasis in the lower lung zones. ACT 112: N/A Electronically signed by Nadeen Burgos 11-13-2024 13:[address] 11/13/24 12:10 EXAM: CT Head and Cervical Spine Without Intravenous Contrast INDICATION: Trauma TECHNIQUE: Axial computed tomography images of the head/brain and cervical spine without intravenous contrast. Sagittal and coronal reformatted images were created and reviewed. This CT exam was performed using one or more of the following dose reduction techniques: automated exposure control, adjustment of the mA and/or kV according to patient size, and/or use of iterative reconstruction technique. COMPARISON: 09/26/2021 FINDINGS: Limitations: None. Brain and extra-axial spaces: Stable right frontal encephalomalacia with overlying cortical calcification. Slight increased periventricular white matter chronic small vessel ischemic gliosis. No acute infarct. No hemorrhage. No extra-axial fluid collection or hydrocephalus. Skull: Right craniotomy. No acute osseous abnormality. Sinuses: No layering fluid in the visualized portions of the paranasal sinuses. Mastoid air cells: No mastoid effusion. Orbits: No significant abnormality noted. Vertebrae: Stable cervical osteoporosis. C2-C3 block vertebra unchanged. Stable facet arthrosis, spondylosis and marked uncal spurring particularly on the right at C5-C6 and bilateral C6-C7. No fracture or subluxation. Discs/spinal canal/neural foramina: Moderate disc space narrowing C5-C6. Mild to moderate narrowing at other levels. There is central disc protrusion C3-C4 without stenosis. There is moderate stenosis of the right lateral recess at C5-C6 and right foraminal stenosis. Similar changes noted on the left side at C6-C7. Soft tissues: No significant abnormality noted. Vasculature: No acute abnormality noted. Lung apices: No significant abnormality noted. Pleural space: No visualized pleural effusion or pneumothorax. IMPRESSION: 1. Chronic changes in the brain. No acute disease. 2. No cervical fracture. Stable degenerative changes. ACT 112: N/A Electronically signed by Aubrey Nadeen 11-13-2024 12:51 PM ECG Additional Comments: I have independently reviewed and interpreted patient's admitting EKG which revealed: NSR at a rate of 72bpm Code Status & VTE Plan Code Status Full Code Supervising Physician Co-Signing Physician Notes Attending Addendum: Case reviewed with the advanced practitioner. I have personally performed a history and physical examination on the patient. I have reviewed the advanced practitioner's documentation on the date of service referenced in note, and I agree with, and take responsibility for the plan of care. please refer to her notes for full details patient seen and examined, records reviewed by myself as well on exam, patient seen resting in bed, awake and alert, oriented timesx 3, answering most questions appropriately States he feels okay overall, denies headache, neck pain, chest pain, hip pain Reports some pain on his bilateral knees No shortness of breath, palpitations, dizziness Reports recurrent falls for the past few months States he is aware when he is about to fall, mostly from tripping over objects denies dizziness, lightheadedness, palpitations, or prior to the falls has poor recollection of his second fall today, states he was not aware that he had fallen again, until informed by [facility] staff no other symptoms VS noted and reviewed oriented x 2-3 , not in distress, speaks in sentences with no effort nor accessory muscle use normal rate, regular rhythm, no murmurs clear breath sounds bilaterally non distended, soft, nontender no bipedal edema, erythema, warmth knees: no erythema/edema/warmth/tenderness no neuro deficits all labs, imaging noted and reviewed ASSESSMENT AND PLAN> Recurrent falls, possible syncope History of oligodendroglioma, pituitary adenoma, status post resection, radiation and chemotherapy History of Seizure -- CT head: No acute process patient declining brain MRI at this time -- check orthostatic vitals to rule out orthostasis check echocardiogram, compliance monitor to rule out cardiac etiology EEG ordered, neurology service consulted, possible breakthrough seizure-- continue usual Keppra for now -- bilateral knee x-ray to rule out fractures as patient reporting pain other diagnoses and plan of care as per advanced practitioner's notes I spent a total of 35 minutes coordinating, documenting, and providing care for this patient, excluding time spent in the performance of separately billed services or time spent by another provider/QHP. Jose Luis Royal MD (8) Depression Depression Type: unspecified Qualified Code(s): F32.9 - Major depressive disorder, single episode, unspecified
[2024-11-13] MEDS: SENNA 8.6 MG TAB PO SCH (20:11)
[2024-11-13] MEDS: FLUTICASONE PROPIONATE NA SPR 16 GM BTL SCH (20:50)
[2024-11-13] MEDS: ENOXAPARIN INJ 40 MG/0.4 ML SYR SQ SCH (20:50)
[2024-11-13] MEDS: levETIRAcetam 500 MG TAB PO SCH (20:50)
[2024-11-14 05:26] LABS: Hematocrit (blood only) 38.0 % (42.0-52.0); Hemoglobin 12.3 g/dl (14.0-18.0); Mean Corpuscular Hemoglobin 28.9 pg (25.0-34.0); Mean Corpuscular Volume 89.2 fL (80.0-100.0); Platelet Count 202 K/uL (130-400); RDW Standard Deviation 40.3 fL (36.4-46.3); Red Blood Count 4.26 M/uL (4.70-6.10); White Blood Count 7.12 K/ul (4.8-10.8)
[2024-11-14 05:40] LABS: Anion Gap 5.0 (3-11); Blood Urea Nitrogen 19.0 mg/dl (6-23); Calcium 8.6 mg/dl (8.6-10.3); Carbon Dioxide 29.0 mmol/L (21-32); Chloride 108.0 mmol/L (98-107); Creatinine Clr Calc Pharmacy 73.7 ml/min; Glucose 90.0 mg/dl (70-99(Fasting)); Potassium 4.2 mmol/L (3.5-5.1); Sodium 142.0 mmol/L (136-145)
[2024-11-14] MEDS: LEVOTHYROXINE SODIUM 137 MCG TABLET PO SCH (06:20)
[2024-11-14] MEDS: FINASTERIDE 5 MG TAB PO SCH (10:15)
[2024-11-14] MEDS: LORATADINE 10 MG TAB PO SCH (10:15)
[2024-11-14] MEDS: VENLAFAXINE HCL XR 150 MG CAPXR PO SCH (10:15)
--- NOTE | 2024-11-14 11:03 | Hospitalist Progress Note ---
Date of Service November 14, 2024 Assessment & Plan (1) Fall: (2) Syncope: (3) Oligodendroglioma: (4) Pituitary adenoma: (5) Seizure disorder: (6) Hypothyroidism: (7) BPH with obstruction/lower urinary tract symptoms: (8) Depression: (9) Allergic rhinitis: Plan 69 year old male resident at [facility] with PMH significant for history of oligodendroglioma, pituitary adenoma, neurocognitive disorder, depression, history of seizures, hypothyroidism, allergic rhinitis, and BPH who presented to the ED on 11/13/2024 after suffering one fall and one syncopal episode and is being admitted for syncope work up. Prior to second fall/syncope, he was walking to the breakfast room, he fell on the floor and lost consciousness for maybe few secs (per [facility]), no incontinence and no involuntary movements. Pt seemed unaware of the fall after being told so after the fall. Hence he was sent to ED. Mechanical Fall Patient presented with mechanical fall, consistent with baseline recurrent falls Denies loss of consciousness but did hit head Head CT and cervical spine CT WNL PT/OT consults Syncope Patient also experienced syncopal episode witnessed by staff at [facility], not consistent with history of falls as described above Vitals stable, labs unremarkable, EKG WNL Concern for breakthrough seizures given history of brain tumor and seizures - discussed with patient about desire to obtain MRI but he preferred to wait for neuro to evaluate Pt states last seizure more than a year ago. No flu like illness/no pain or burn w/ passing urine/ no sore throat and cough/ no chest pain per Pt. Await ECHO, EEG, neuro eval. Pt declined MRI and wanted to wait for neuro eval. Ortho vital neg Fall precaution. neurochecks History of oligodendroglioma Pituitary adenoma Follows with [facility] in [place] s/p resection (2005) followed by radiation and chemotherapy (2014) Under surveillance without tumor progression Serial MRIs every 6 months History of seizures Continue keppra and clobazam Obtain EEG to evaluate for breakthrough seizures as above Hypothyroidism: Continue levothyroxine BPH: Continue dutasteride Depression: Continue venlafaxine Allergic rhinitis: Continue loratadine and Flonase DVT Prophylaxis: SQ lovenox Code Status: FULL CODE PCP: Santhosh Noel Pt's at bedside who was also updated on plan of care. Admission and Anticipated Discharge Date Admission Date: November 13, 2024 Subjective Patient was seen and examined at bedside. Patient was sitting up in bed, on room air, NAD, resting comfortably. Patient reports being able to eat okay, had a small bowel about 4 days ago, generally has constipation per patient. Will add bowel regimen while in hospital. Patient denies any headache or dizziness or shortness of breath or flulike illness or sore throat or cough. Physical Exam Physical Exam: General/Psych: WD/WN, NAD, conversing easily Head: normocephalic, atraumatic Eyes: normal inspection, PERRL, conjunctivae pink ENT: external ear and nose normal, oropharynx normal Neck: normal visual inspection, trachea midline Respiratory: normal respiratory effort, lungs clear to auscultation, no wheeze/rales/rhonchi, no accessory muscle use Cardiovascular: regular rate and rhythm, no murmur/rub/gallop, no JVD Extremities: no cyanosis or clubbing, normal peripheral pulses, no BLE edema Abdomen/GI: normal bowel sounds, soft, nontender, no hepatosplenomegaly Neurologic/MSK: A+Ox3, motor strength 5/5, moves all extremities Skin: no rashes, normal color, warm and dry Results & Data Results & Data Vital Signs (Past 12 Hours) Vital Signs Temp Pulse Pulse Resp BP Pulse Ox O2 Del Method 11/14/24 07:31 36.7 C 62 21 159/96 H 91 Room Air 11/14/24 02:26 36.3 C L 56 L 18 151/88 H 93 Room Air 11/13/24 23:25 36.6 C 59 L 18 145/87 H 98 Room Air 11/13/24 23:00 63 (1) Fall Encounter type: initial encounter Qualified Code(s): W19.XXXA - Unspecified fall, initial encounter (2) Syncope Syncope type: unspecified Qualified Code(s): R55 - Syncope and collapse (8) Depression Depression Type: unspecified Qualified Code(s): F32.9 - Major depressive disorder, single episode, unspecified
[2024-11-14] MEDS: POLYETHYLENE (MIRALAX) 17 GM PACK PO SCH (12:26)
[2024-11-14] MEDS: DOCUSATE SODIUM 100 MG CAP PO SCH (12:26)
--- NOTE | 2024-11-14 16:48 | Neurology Consultation ---
Date of Consultation November 14, 2024 Assessment & Plan (1) Syncope: Recommend CTA head & neck Recommend MRI brain with and without contrast Recommend continue to monitor orthostatic vital signs Recommend obtain EEG during this admission Provide seizure precautions Utilize benzodiazepines emergently for any breakthrough clinical seizure like activity Recommend continue to provide falls precautions Recommend echocardiogram as part of complete workup Continue frequent neurological assessments Obtain stat CT brain without contrast for any acute neurological decline Continue to monitor/control blood pressure & blood glucose Continue to monitor telemetry closely Recommend ZioPatch at DC if no evidence of arrhythmia during inpatient monitoring Continue to monitor renal and hepatic function, keep euvolemic Ok from neurology perspective for VTE prophylaxis PT/OT/SLT to eval and treat Recommend eval for LETA and consider outpatient polysomnography Telehealth Consultation Telehealth Information Telehealth Information: I performed this visit using a real-time telehealth connection between my location and the patients location ([facility]). After connecting through interactive tele-video, patient was identified by name and date of and/or wristband check.Patient (or authorized healthcare insurance follow up representative) was informed that this was a telemedicine visit and it was being conducted confidentially over secure lines. My office door was closed and no one else was present in the room with me.Patient (or authorized healthcare insurance follow up representative) provided consent to proceed with the visit, expressed an understanding of privacy and security of the telemedicine visit, and gave permission to have a hospital insurance follow up representative in the room in order to assist with the visit and to conduct portions of the visit, as needed. I informed the patient (or authorized healthcare insurance follow up representative) that I reviewed their record and presented the opportunity for them to ask any questions regarding the visit today. The patient agreed to participate. History of Present Illness Reason for Consultation: Syncope Requesting Physician: Dr Houston Attending Physician: Yumiko Houston MD History of Present Illness 69yo male with hx of oligodendroglioma and pituitary adenoma as well as seizures unfortunately has suffered 2-3 events of syncope/falls at his local nursing care facility. He seems to feel like he may not have lost consciousness but it is reportedly been witnessed by staff that he has suffered full syncope. Notably patient is taking an alpha analia finasteride. He reports no changes in antiepileptic medications recently. He has undergone CT brain and cervical spine without contrast revealing no overt evidence of acute intracranial pathology or injury. I have performed televideo consultation. He is alert & oriented; able to answer all questions appropriately, name objects on televideo monitor, repeat phrases and perform complex/embedded commands without deficit. Neurological exam is non lateralizing/nonfocal in terms of motor strength and coordination. Allergies Allergy/AdvReac Type Severity Reaction Status Date / Time Fish Containing Products Allergy Severe Vomiting Verified 12/04/22 11:15 fish derived Allergy Severe Vomiting Verified 12/04/22 11:15 pollen extracts Allergy Intermediate ITCHY Verified 12/04/22 11:15 EYES, SNEEZING, CONGESTION Home Medications Medication Instructions Recorded Confirmed Type venlafaxine 150 mg tablet,extended 150 mg PO DAILY 10/30/20 11/13/24 History release 24 hr levothyroxine 137 mcg tablet 137 mcg PO DAILYBB 09/26/21 11/13/24 History sennosides 8.6 mg tablet (senna) 8.6 mg PO HS 09/26/21 11/13/24 History levetiracetam 500 mg tablet 1,000 mg (2 x 500 mg) PO BID 90 12/04/22 11/13/24 Rx days #360 tabs clobazam 10 mg tablet (Onfi) 10 mg PO HS 30 days #30 tabs 11/19/23 11/13/24 Rx dutasteride 0.5 mg capsule 0.5 mg PO DAILY #90 caps 04/16/24 11/13/24 Rx acetaminophen 325 mg tablet 325 mg PO QID PRN Pain 11/13/24 11/13/24 History fluticasone propionate 50 2 spray intranasal BID 11/13/24 11/13/24 History mcg/actuation nasal spray,suspension loratadine 10 mg tablet 10 mg PO DAILY 11/13/24 11/13/24 History Patient History Medical History (Updated 11/13/24 @ 18:02 by Zay Harden DO) Pituitary adenoma Anxiety Major neurocognitive disorder Moderate obstructive sleep apnea Incomplete emptying of bladder Hyperglycemia Frequency-urgency syndrome Nocturia Partial epilepsy, with intractable epilepsy, poorly controlled Partial epilepsy without impairment of consciousness Fatigue Pituitary abnormality Nocturnal hypoxemia Oligodendroglioma Laryngopharyngeal reflux Impotence, organic Eczema H/O brain tumor Left arm weakness Left hemiparesis Oligodendroglioma History of radiation therapy History of chemotherapy Fatigue Surgical History H/O colonoscopy (~2016) H/O hernia repair H/O brain surgery (~2006) Family History Sister Cancer Liver cancer Mother Cancer Bladder cancer Family/Other Ulcerative colitis Allergic rhinitis Social History (Updated 11/13/24 @ 17:44 by ELY Peterson) Smoking Status: Never smoker Hx Alcohol Use: No Hx Substance Use: No Preferred Language: Sierra Leonean Communication Ability: Effective Embedded Systems Developer Required: No Beliefs That Will Affect Care: None marital status: Current Living Situation: Personal Care Facility Current Living Situation Comment: [facility] in [place] current occupational status: disabled Other Information That Helps Us Care for You: No Feels Safe at Home: Yes Safety Concerns: Feels Safe At This Time Assistive Devices: Cane Physical Exam Neurological Examination: Mental Status: Awake and alert. Oriented to person, place, and time. Fluency naming repetition and comprehension appear grossly intact. Affect remains appropriate. CN testing: I: Deferred II: Reports no changes in visual acuity III/IV/: No evidence of gaze preference, hippus, nystagmus or roving eye movements V: Facial sensation reportedly grossly intact to light touch bilaterally VII: Facial movements appear without evidence of asymmetry VIII: Hearing appears grossly intact to loud voice bilaterally IX/X: Palate is unable to be accurately visualized XI: Shoulder shrug appears symmetric/ grossly intact bilaterally XII: Tongue protrudes midline without evidence of biting Motor exam: Strength appears grossly intact in all extremities Tone: Unable to accurately assess via telemedicine Sensory: Sensation is reportedly grossly intact throughout Coordination: No apparent evidence of dysmetria or dysdiadochokinesia Reflexes: Unable to accurately assess via telemedicine Gait: Deferred Results & Data Vital Signs (Past 12 Hours) Vital Signs Temp Pulse Resp BP Pulse Ox O2 Del Method 11/14/24 15:42 36.6 C 69 23 128/89 92 Room Air 11/14/24 11:11 36.4 C L 67 20 142/87 H 92 Room Air 11/14/24 07:31 36.7 C 62 21 159/96 H 91 Room Air Laboratory Results Abnormal lab results 11/14/24 Range/Units 05:01 RBC 4.26 L (4.70-6.10) M/uL Hgb 12.3 L (14.0-18.0) g/dl Hct 38.0 L (42.0-52.0) % Chloride 108 H (98-107) mmol/L Medications Administered Home Medications Medication Instructions Recorded Confirmed Last Taken venlafaxine 150 mg tablet,extended 150 mg PO DAILY 10/30/20 11/13/24 11/13/24 release 24 hr levothyroxine 137 mcg tablet 137 mcg PO DAILYBB 09/26/21 11/13/24 11/13/24 sennosides 8.6 mg tablet (senna) 8.6 mg PO HS 09/26/21 11/13/24 11/13/24 levetiracetam 500 mg tablet 1,000 mg (2 x 500 mg) PO BID 90 12/04/22 11/13/24 11/13/24 days #360 tabs clobazam 10 mg tablet (Onfi) 10 mg PO HS 30 days #30 tabs 11/19/23 11/13/24 11/13/24 dutasteride 0.5 mg capsule 0.5 mg PO DAILY #90 caps 04/16/24 11/13/24 11/13/24 acetaminophen 325 mg tablet 325 mg PO QID PRN Pain 11/13/24 11/13/24 11/13/24 fluticasone propionate 50 2 spray intranasal BID 11/13/24 11/13/24 11/13/24 mcg/actuation nasal spray,suspension loratadine 10 mg tablet 10 mg PO DAILY 11/13/24 11/13/24 11/13/24 Active Medications Generic Name Dose Route Start Last Admin Trade Name Alfq PRN Reason Stop Dose Admin Clobazam 10 mg 11/13/24 21:00 11/13/24 20:11 Clobazam 10 Mg Tab PO 12/13/24 20:59 10 mg HS JAMES Administration Docusate Sodium 100 mg 11/14/24 11:00 11/14/24 12:26 Docusate Sodium 100 Mg Cap PO 12/14/24 10:59 Not Given BID JAMES Enoxaparin Sodium 40 mg 11/13/24 21:00 11/13/24 20:50 Enoxaparin Inj 40 Mg/0.4 Ml Syr SQ 12/13/24 20:59 40 mg Q24H JAMES Administration Finasteride 5 mg 11/14/24 09:00 11/14/24 10:15 Finasteride 5 Mg Tab PO 12/14/24 08:59 5 mg DAILY JAMES Administration Fluticasone Propionate 2 sprays 11/13/24 21:00 11/14/24 12:26 Fluticasone Propionate Na Spr 16 Gm Btl NA 12/13/24 20:59 Not Given BID JAMES Levetiracetam 1,000 mg 11/13/24 21:00 11/14/24 10:15 Levetiracetam 500 Mg Tab PO 12/13/24 20:59 1,000 mg BID JAMES Administration Levothyroxine Sodium 137 mcg 11/14/24 06:30 11/14/24 06:20 Levothyroxine Sodium 137 Mcg Tablet PO 12/14/24 06:29 137 mcg DAILYBB JAMES Administration Loratadine 10 mg 11/14/24 09:00 11/14/24 10:15 Loratadine 10 Mg Tab PO 12/14/24 08:59 10 mg DAILY JAMES Administration Polyethylene Glycol 17 gm 11/14/24 11:00 11/14/24 12:26 Polyethylene (Miralax) 17 Gm Pack PO 12/14/24 10:59 Not Given DAILY JAMES Sennosides 8.6 mg 11/13/24 21:00 11/13/24 20:11 Senna 8.6 Mg Tab PO 12/13/24 20:59 8.6 mg HS JAMES Administration Venlafaxine HCl 150 mg 11/14/24 09:00 11/14/24 10:15 Venlafaxine Hcl Xr 150 Mg Capxr PO 12/14/24 08:59 150 mg DAILY JAMES Administration (1) Syncope Syncope type: unspecified Qualified Code(s): R55 - Syncope and collapse
[2024-11-14] MEDS: GADOBUTROL 30ML VIAL IV ONE (19:39)
[2024-11-14] MEDS: OPTIRAY 320 125ml IV ONE (19:53)
--- NOTE | 2024-11-14 20:03 | Magnetic Resonance Report ---
EXAMINATION: MRI brain with and without contrast CLINICAL HISTORY: Rule out stroke, seizure, syncope, fell 4 times last 6 weeks. PRIORS: Head CT 11/13/2024 TECHNIQUE: Multiplanar multisequence imaging was obtained through the brain without and with the use of intravenous contrast. FINDINGS: Large area of encephalomalacia postsurgical change noted in the right high parietal lobe with overlying calvarial defect/postsurgical change. Moderate parenchymal volume loss noted. No restricted diffusion to suggest an acute or subacute infarction. No hemosiderin on the gradient sequence. No large intra-axial or extra axial hemorrhage. Moderate diffuse parenchymal volume loss noted. No ventriculomegaly. Gliosis present in the white matter of the occipital lobes. The cerebellum and brainstem unremarkable. No enhancing mass on the gadolinium sequences. Paranasal sinuses are well-pneumatized. Nasal septum mildly deviated to the left. Globes are bilaterally symmetric. Retrobulbar fat has a normal appearance. No CP angle mass. Cerebellar tonsils are not low-lying. Corpus callosum is unremarkable. IMPRESSION: 1. Chronic appearing changes within the brain with no MRI evidence of an acute intracranial abnormality, enhancing mass or infarction. Electronically signed by Selena Kraft 11-14-2024 8:02 PM
--- NOTE | 2024-11-14 21:36 | CT Scan Report ---
Exam(s): CTA HEAD W/WO Contrast IV Amt: 119ml optiray 320 EXAM: CT Angiography Head Without and With Intravenous Contrast CLINICAL HISTORY: Reason for exam: stroke w/u. TECHNIQUE: Axial computed tomographic angiography images of the head without and with intravenous contrast. CTDI is 12.76 mGy and DLP is 475.66 mGy-cm. Automated exposure control was utilized for the study. A dose lowering technique was utilized adhering to the principles of ALARA. MIP reconstructed images were created and reviewed. CONTRAST: Patient received 119ml optiray 320 of IV contrast COMPARISON: Head CT 11/13/2024 FINDINGS: VASCULATURE: Right internal carotid artery: Intracranial segment is patent with no significant stenosis. No aneurysm. Right anterior cerebral artery: No occlusion or significant stenosis. No aneurysm. Right middle cerebral artery: No occlusion or significant stenosis. No aneurysm. Right posterior cerebral artery: No occlusion or significant stenosis. No aneurysm. Right vertebral artery: Unremarkable as visualized. Left internal carotid artery: Intracranial segment is patent with no significant stenosis. No aneurysm. Left anterior cerebral artery: No occlusion or significant stenosis. No aneurysm. Left middle cerebral artery: No occlusion or significant stenosis. No aneurysm. Left posterior cerebral artery: No occlusion or significant stenosis. No aneurysm. Left vertebral artery: Unremarkable as visualized. Basilar artery: No occlusion or significant stenosis. No aneurysm. HEAD: Brain: No intracranial hemorrhage. Cystic encephalomalacia in the right hemisphere. Asymmetric periventricular white matter changes right greater than left appears similar to the prior. No mass-effect. Ventricles: Unremarkable. No ventriculomegaly. Bones/joints: No acute fracture. Soft tissues: Unremarkable. Sinuses: Unremarkable as visualized. No acute sinusitis. Mastoid air cells: Unremarkable as visualized. No mastoid effusion. IMPRESSION: No acute findings in the arteries of the head/brain. Electronically signed by: Yassine Aguilar MD 11/14/24 21:35 PM
--- NOTE | 2024-11-14 21:39 | CT Scan Report ---
Exam(s): CTA NECK W/WO Contrast IV Amt: 119ml optiray 320 EXAM: CT Angiography Neck Without and With Intravenous Contrast CLINICAL HISTORY: Reason for exam: stroke w/u. TECHNIQUE: Routine carotid CT angiography protocol was performed without and with intravenous contrast. NASCET criteria using the distal ICAs for comparison were used for evaluation of stenoses. CTDI is 25 mGy and DLP is 1676 mGy-cm. Automated exposure control was utilized for the study. A dose lowering technique was utilized adhering to the principles of ALARA. MIP reconstructed images were created and reviewed. CONTRAST: Patient received 119ml optiray 320 of IV contrast COMPARISON: None. FINDINGS: VASCULATURE: Right common carotid artery: No occlusion or significant stenosis. No dissection. Right internal carotid artery: Extracranial segment is patent with no occlusion or significant stenosis. No dissection. Right vertebral artery: No occlusion or significant stenosis. No dissection. Left common carotid artery: No occlusion or significant stenosis. No dissection. Left internal carotid artery: Extracranial segment is patent with no occlusion or significant stenosis. No dissection. Left vertebral artery: No occlusion or significant stenosis. No dissection. NECK: Bones/joints: Unremarkable. No acute fracture. Soft tissues: Unremarkable. Lung apices: Clear. CAROTID STENOSIS REFERENCE USING NASCET CRITERIA: % ICA stenosis = (1 - narrowest ICA diameter/diameter of distal cervical ICA) x 100. Mild - <50% stenosis. Moderate - 50-69% stenosis. Severe - 70-94% stenosis. Near occlusion - 95-99% stenosis. Occluded - 100% stenosis. IMPRESSION: Negative CTA neck. Electronically signed by: Yassine Aguilar MD 11/14/24 21:38 PM
[2024-11-15 06:17] LABS: Hematocrit (blood only) 40.2 % (42.0-52.0); Hemoglobin 13.0 g/dl (14.0-18.0); Mean Corpuscular Hemoglobin 28.8 pg (25.0-34.0); Mean Corpuscular Volume 88.9 fL (80.0-100.0); Platelet Count 218 K/uL (130-400); RDW Standard Deviation 40.7 fL (36.4-46.3); Red Blood Count 4.52 M/uL (4.70-6.10); White Blood Count 7.72 K/ul (4.8-10.8)
[2024-11-15 06:39] LABS: Anion Gap 6.0 (3-11); Blood Urea Nitrogen 19.0 mg/dl (6-23); Calcium 9.0 mg/dl (8.6-10.3); Carbon Dioxide 30.0 mmol/L (21-32); Chloride 105.0 mmol/L (98-107); Creatinine Clr Calc Pharmacy 63.2 ml/min; Glucose 92.0 mg/dl (70-99(Fasting)); Potassium 4.3 mmol/L (3.5-5.1); Sodium 141.0 mmol/L (136-145)
--- NOTE | 2024-11-15 10:22 | Electrocardiogram Report ---
Test Reason : Blood Pressure : */* mmHG Vent. Rate : 72 BPM Atrial Rate : 72 BPM P-R Int : 148 ms QRS Dur : 94 ms QT Int : 396 ms P-R-T Axes : 73 57 47 degrees QTcB Int : 433 ms Normal sinus rhythm Normal ECG When compared with ECG of 27-Dec-2021 18:11, Questionable change in QRS axis Confirmed by Sukhdeep Landeros ([id number]) on 11/15/2024 10:21:30 AM Referred By: [facility] Confirmed By: Sukhdeep Landeros
--- NOTE | 2024-11-15 15:03 | Hospitalist Progress Note ---
Date of Service November 15, 2024 Assessment & Plan (1) Fall: (2) Syncope: (3) Oligodendroglioma: (4) Pituitary adenoma: (5) Seizure disorder: (6) Hypothyroidism: (7) BPH with obstruction/lower urinary tract symptoms: (8) Depression: (9) Allergic rhinitis: Plan 69 year old male resident at [facility] with PMH significant for history of oligodendroglioma, pituitary adenoma, neurocognitive disorder, depression, history of seizures, hypothyroidism, allergic rhinitis, and BPH who presented to the ED on 11/13/2024 after suffering one fall and one syncopal episode and is being admitted for syncope work up. Prior to second fall/syncope, he was walking to the breakfast room, he fell on the floor and lost consciousness for maybe few secs (per [facility]), no incontinence and no involuntary movements. Pt seemed unaware of the fall after being told so after the fall. Hence he was sent to ED. Mechanical Fall Patient presented with mechanical fall, consistent with baseline recurrent falls Denies loss of consciousness but did hit head Head CT and cervical spine CT WNL PT/OT consults Since he has recurrent falls, he might benefit from walker on dc. Syncope Patient also experienced syncopal episode witnessed by staff at [facility], not consistent with history of falls as described above Vitals stable, labs unremarkable, EKG WNL Concern for breakthrough seizures given history of brain tumor and seizures - discussed with patient about desire to obtain MRI but he preferred to wait for neuro to evaluate Pt states last seizure more than a year ago. No flu like illness/no pain or burn w/ passing urine/ no sore throat and cough/ no chest pain per Pt. ECHO w/ ef of 60-65%, no ASD. MRI, CTA Head and Neck w/ no acute finding Await EEG report. Fall precaution, neurochecks. Neuro evaled, also recs are sleep study and zio patch on dc. History of oligodendroglioma Pituitary adenoma Follows with [facility] in [place] s/p resection (2005) followed by radiation and chemotherapy (2014) Under surveillance without tumor progression Serial MRIs every 6 months History of seizures Continue keppra and clobazam Obtain EEG to evaluate for breakthrough seizures as above Hypothyroidism: Continue levothyroxine BPH: Continue dutasteride Depression: Continue venlafaxine Allergic rhinitis: Continue loratadine and Flonase DVT Prophylaxis: SQ lovenox Code Status: FULL CODE PCP: Santhosh Noel Pt's was also updated on plan of care over the phone 11/15. Admission and Anticipated Discharge Date Admission Date: November 13, 2024 Subjective Patient was seen and examined at bedside. Patient was sitting up in bed, on room air, NAD, resting comfortably. Patient reports being able to eat okay, c/w zari regimen. Patient denies any headache or dizziness or shortness of breath or flulike illness or sore throat or cough. Pt denies any N/T/f weakness. Physical Exam Physical Exam: General/Psych: WD/WN, NAD, conversing easily Head: normocephalic, atraumatic Eyes: normal inspection, PERRL, conjunctivae pink ENT: external ear and nose normal, oropharynx normal Neck: normal visual inspection, trachea midline Respiratory: normal respiratory effort, lungs clear to auscultation, no wheeze/rales/rhonchi, no accessory muscle use Cardiovascular: regular rate and rhythm, no murmur/rub/gallop, no JVD Extremities: no cyanosis or clubbing, normal peripheral pulses, no BLE edema Abdomen/GI: normal bowel sounds, soft, nontender, no hepatosplenomegaly Neurologic/MSK: A+Ox3, motor strength 5/5, moves all extremities Skin: no rashes, normal color, warm and dry Results & Data Results & Data Vital Signs (Past 12 Hours) Vital Signs Temp Pulse Resp BP Pulse Ox O2 Del Method 11/15/24 11:59 36.4 C L 70 20 137/83 96 Room Air 11/15/24 08:05 36.3 C L 63 20 122/85 94 Room Air 11/15/24 03:18 36.5 C 72 16 95 Room Air (1) Fall Encounter type: initial encounter Qualified Code(s): W19.XXXA - Unspecified fall, initial encounter (2) Syncope Syncope type: unspecified Qualified Code(s): R55 - Syncope and collapse (8) Depression Depression Type: unspecified Qualified Code(s): F32.9 - Major depressive disorder, single episode, unspecified
--- NOTE | 2024-11-15 16:45 | Electroencephalogram ---
EEG Procedure Note Date of Service November 15, 2024 Start / End Times Start Time: 605 End Time: 625 Referring Physician Krystal Guevara PA-C History A 69 M w possible syncope Vs seizure. EEG performed for evaluation of epilepform activity. Home Medication List Medication Instructions Recorded Confirmed Type venlafaxine 150 mg tablet,extended 150 mg PO DAILY 10/30/20 11/13/24 History release 24 hr levothyroxine 137 mcg tablet 137 mcg PO DAILYBB 09/26/21 11/13/24 History sennosides 8.6 mg tablet (senna) 8.6 mg PO HS 09/26/21 11/13/24 History levetiracetam 500 mg tablet 1,000 mg (2 x 500 mg) PO BID 90 12/04/22 11/13/24 Rx days #360 tabs clobazam 10 mg tablet (Onfi) 10 mg PO HS 30 days #30 tabs 11/19/23 11/13/24 Rx dutasteride 0.5 mg capsule 0.5 mg PO DAILY #90 caps 04/16/24 11/13/24 Rx acetaminophen 325 mg tablet 325 mg PO QID PRN Pain 11/13/24 11/13/24 History fluticasone propionate 50 2 spray intranasal BID 11/13/24 11/13/24 History mcg/actuation nasal spray,suspension loratadine 10 mg tablet 10 mg PO DAILY 11/13/24 11/13/24 History Inpatient Medication List Clobazam (Clobazam 10 Mg Tab) 10 mg PO HS JAMES Stop: 12/13/24 20:59 Last Admin: 11/14/24 21:58 Dose: 10 mg Documented By: Admin: 11/13/24 20:11 Dose: 10 mg Documented By: ANITA Docusate Sodium (Docusate Sodium 100 Mg Cap) 100 mg PO BID JAMES Stop: 12/14/24 10:59 Last Admin: 11/15/24 10:05 Dose: Not Given Documented By: Admin: 11/14/24 22:02 Dose: Not Given Documented By: Admin: 11/14/24 12:26 Dose: Not Given Documented By: TRE Enoxaparin Sodium (Enoxaparin Inj 40 Mg/0.4 Ml Syr) 40 mg SQ Q24H JAMES Stop: 12/13/24 20:59 Last Admin: 11/14/24 22:02 Dose: 40 mg Documented By: Admin: 11/13/24 20:50 Dose: 40 mg Documented By: ANITA Finasteride (Finasteride 5 Mg Tab) 5 mg PO DAILY JAMES Stop: 12/14/24 08:59 Last Admin: 11/15/24 10:05 Dose: 5 mg Documented By: Admin: 11/14/24 10:15 Dose: 5 mg Documented By: TRE Fluticasone Propionate (Fluticasone Propionate Na Spr 16 Gm Btl) 2 sprays NA BID JAMES Stop: 12/13/24 20:59 Last Admin: 11/15/24 10:05 Dose: Not Given Documented By: Admin: 11/14/24 22:02 Dose: 2 sprays Documented By: Admin: 11/14/24 12:26 Dose: Not Given Documented By: Admin: 11/13/24 20:50 Dose: 2 sprays Documented By: ANITA Levetiracetam (Levetiracetam 500 Mg Tab) 1,000 mg PO BID JAMES Stop: 12/13/24 20:59 Last Admin: 11/15/24 10:05 Dose: 1,000 mg Documented By: Admin: 11/14/24 22:00 Dose: 1,000 mg Documented By: Admin: 11/14/24 10:15 Dose: 1,000 mg Documented By: Admin: 11/13/24 20:50 Dose: 1,000 mg Documented By: ANITA Levothyroxine Sodium (Levothyroxine Sodium 137 Mcg Tablet) 137 mcg PO DAILYBB JAMES Stop: 12/14/24 06:29 Last Admin: 11/15/24 06:36 Dose: 137 mcg Documented By: Admin: 11/14/24 06:20 Dose: 137 mcg Documented By: SHARON Loratadine (Loratadine 10 Mg Tab) 10 mg PO DAILY JAMES Stop: 12/14/24 08:59 Last Admin: 11/15/24 10:05 Dose: 10 mg Documented By: Admin: 11/14/24 10:15 Dose: 10 mg Documented By: TRE Polyethylene Glycol (Polyethylene (Miralax) 17 Gm Pack) 17 gm PO DAILY JAMES Stop: 12/14/24 10:59 Last Admin: 11/15/24 10:06 Dose: Not Given Documented By: Admin: 11/14/24 12:26 Dose: Not Given Documented By: AMB Sennosides (Senna 8.6 Mg Tab) 8.6 mg PO HS JAMES Stop: 12/13/24 20:59 Last Admin: 11/14/24 22:02 Dose: 8.6 mg Documented By: Admin: 11/13/24 20:11 Dose: 8.6 mg Documented By: SMW Venlafaxine HCl (Venlafaxine Hcl Xr 150 Mg Capxr) 150 mg PO DAILY JAMES Stop: 12/14/24 08:59 Last Admin: 11/15/24 10:05 Dose: 150 mg Documented By: Admin: 11/14/24 10:15 Dose: 150 mg Documented By: AMB Discontinued Medications Gadobutrol (Gadobutrol 30ml Vial) 7.5 ml IV ONCE ONE Stop: 11/14/24 19:40 Last Admin: 11/14/24 19:39 Dose: 7.5 ml Documented By: DP Sodium Chloride (Nss) 1,000 mls @ 999 mls/hr IV .Q1H1M ONE Stop: 11/13/24 13:10 Last Infusion: 11/13/24 14:26 Dose: Infused Documented By: Admin: 11/13/24 12:22 Dose: 999 mls/hr Documented By: MSG Ioversol (Optiray 320 125ml) 119 ml IV ONCE ONE Stop: 11/14/24 19:54 Last Admin: 11/14/24 19:53 Dose: 119 ml Documented By: EDK Description This is a 21 electrode EEG with a single channel dedicated to limited EKG. The electrodes were placed in accordance with the International 10-20 system. REPORT: At the onset of the EEG the patient is awake. The background is asymmetric. The posterior dominant rhythm is 8 Hz best seen on the left. There is continuous focal slowing maximal in the right temporal parietal head region. Interpretation This is an abnormal routine EEG due to continuous background slowing suggestive of a mild non specific encephalopathy, 2. Focal slowing on the right suggestive of underlying structural abnormality.
[2024-11-15 19:42] VITALS: RESP 18
[2024-11-16 06:38] LABS: Anion Gap 9.0 (3-11); Blood Urea Nitrogen 23.0 mg/dl (6-23); Calcium 8.8 mg/dl (8.6-10.3); Carbon Dioxide 25.0 mmol/L (21-32); Chloride 106.0 mmol/L (98-107); Creatinine Clr Calc Pharmacy 67.1 ml/min; Glucose 99.0 mg/dl (70-99(Fasting)); Magnesium 2.2 mg/dl (1.7-2.4); Potassium 3.9 mmol/L (3.5-5.1); Sodium 140.0 mmol/L (136-145)
[2024-11-16 08:11] VITALS: TEMP 97.5
[2024-11-16 10:48] VITALS: BP 117/82
--- NOTE | 2024-11-16 12:02 | Discharge Summary ---
Date of Service November 16, 2024 Admission HPI Per Admitting Provider 69 year old male resident at [facility] with PMH significant for history of oligodendroglioma, pituitary adenoma, neurocognitive disorder, depression, history of seizures, hypothyroidism, allergic rhinitis, and BPH who presented to the ED on 11/13/2024 after suffering one fall and one syncopal episode. Patient reports he has been having recurrent falls dating back to last summer. He was previously living at home alone and moved into [facility] in May for more assistance. He reports that he falls about once per week, and is always awake and conscious of the falls. He notes they are mostly mechanical in nature and he has hit his head a few times. Today, he reports he took a shower and slipped on the wet floor in the doorway between his bathroom and the rest of his apartment, causing him to fall backwards. His hit did hit against a carpeted floor. He was able to get himself up to the chair and call for assistance. Then it was told to him by two resident assistants that he had a second fall that he has no recollection of. He presumes that he must have lost consciousness during this fall, which is not his baseline. He denies feeling dizzy or lightheaded prior to falls. Denies any recent medication changes other than recently starting dutasteride for BPH. He is actively participating in neurocognitive, physical, and occupational therapy. He uses a cane to walk. Denies fevers, chills, cough, cold symptoms, chest pain, SOB, abdominal pain, N/V/D, dysuria. Admission Exam Per Admitting Provider General/Psych: WD/WN, sitting up in bed, NAD, conversing easily Head: normocephalic, atraumatic Eyes: normal inspection, PERRL, conjunctivae pink ENT: external ear and nose normal, oropharynx normal Neck: normal visual inspection, trachea midline Respiratory: normal respiratory effort, lungs clear to auscultation, no wheeze/rales/rhonchi, no accessory muscle use Cardiovascular: regular rate and rhythm, no murmur/rub/gallop, no JVD Extremities: no cyanosis or clubbing, normal peripheral pulses, no BLE edema Abdomen/GI: normal bowel sounds, soft, nontender, no hepatosplenomegaly Neurologic/MSK: A+Ox3, motor strength 5/5, moves all extremities Skin: no rashes, normal color, warm and dry Principal Diagnosis Mechanical Fall Syncope Discharge Exam General/Psych: WD/WN, NAD, conversing easily Head: normocephalic, atraumatic Eyes: normal inspection, PERRL, conjunctivae pink ENT: external ear and nose normal, oropharynx normal Neck: normal visual inspection, trachea midline Respiratory: normal respiratory effort, lungs clear to auscultation, no wheeze/rales/rhonchi, no accessory muscle use Cardiovascular: regular rate and rhythm, no murmur/rub/gallop, no JVD Extremities: no cyanosis or clubbing, normal peripheral pulses, no BLE edema Abdomen/GI: normal bowel sounds, soft, nontender, no hepatosplenomegaly Neurologic/MSK: A+Ox3, motor strength 5/5, moves all extremities Skin: no rashes, normal color, warm and dry Discharge Data Allergies Allergy/AdvReac Type Severity Reaction Status Date / Time Fish Containing Products Allergy Severe Vomiting Verified 12/04/22 11:15 fish derived Allergy Severe Vomiting Verified 12/04/22 11:15 pollen extracts Allergy Intermediate ITCHY Verified 12/04/22 11:15 EYES, SNEEZING, CONGESTION Consultations 11/13/24 14:47 ED Decision to Admit Stat 11/13/24 19:51 Consult Neurology Routine Ordered Studies 11/13/24 12:10 CT cervical spine wo con Stat CT head/brain wo con Stat 11/14/24 16:41 MRI Brain [MR brain wo/w con] Routine 11/14/24 17:28 CT angio head wo/w Routine CT angio neck wo/w con Routine Hospital Course (1) Fall: (2) Syncope: (3) Oligodendroglioma: (4) Pituitary adenoma: (5) Seizure disorder: (6) Hypothyroidism: (7) BPH with obstruction/lower urinary tract symptoms: (8) Depression: (9) Allergic rhinitis: Plan 69 year old male resident at [facility] with PMH significant for history of oligodendroglioma, pituitary adenoma, neurocognitive disorder, depression, history of seizures, hypothyroidism, allergic rhinitis, and BPH who presented to the ED on 11/13/2024 after suffering one fall and one syncopal episode and is being admitted for syncope work up. Prior to second fall/syncope, he was walking to the breakfast room, he fell on the floor and lost consciousness for maybe few secs (per [facility]), no incontinence and no involuntary movements. Pt seemed unaware of the fall after being told so after the fall. Hence he was sent to ED. He was managed for the following: Mechanical Fall Patient presented with mechanical fall, consistent with baseline recurrent falls Denies loss of consciousness but did hit head Head CT and cervical spine CT WNL PT/OT consults, recommends rehab, pt declines rehab, advised to c/w PT/OT on discharge. Since he has recurrent falls, c/t use walker. Syncope Patient also experienced syncopal episode witnessed by staff at [facility], not consistent with history of falls as described above Vitals stable, labs unremarkable, EKG WNL Concern for breakthrough seizures given history of brain tumor and seizures - discussed with patient about desire to obtain MRI but he preferred to wait for neuro to evaluate Pt states last seizure more than a year ago. No flu like illness/no pain or burn w/ passing urine/ no sore throat and cough/ no chest pain per Pt. ECHO w/ ef of 60-65%, no ASD. MRI, CTA Head and Neck w/ no acute finding EEG finding d/w neuro, no med changes at this time. Fall precaution, neurochecks. Neuro evaled, also recs are sleep study and zio patch on dc. History of oligodendroglioma Pituitary adenoma Follows with [facility] in [place] s/p resection (2005) followed by radiation and chemotherapy (2014) Under surveillance without tumor progression Serial MRIs every 6 months History of seizures Continue keppra and clobazam Obtain EEG to evaluate for breakthrough seizures as above Hypothyroidism: Continue levothyroxine BPH: Continue dutasteride Depression: Continue venlafaxine Allergic rhinitis: Continue loratadine and Flonase DVT Prophylaxis: SQ lovenox Code Status: FULL CODE PCP: Santhosh Noel PT/OT recommending rehab, patient declines rehab and would like to go with physical therapy upon discharge. Patient's was given phone call and updated on instruction/plan of care. Following instructions were communicated at the point of discharge: Follow-up with your primary care physician within a week time and likely you will need labs CBC/CMP/magnesium/phosphorus. You were evaluated by neurology for possible syncope, you underwent CT scan and MRI of brain, EEG. No new acute/concerning findings were noted per my discussion with neurology that warrants medication changes. Continue to utilize walker at home given you have history of recurrent falls in the setting of brain tumor/resection/radiation. Continue to follow-up with serial MRIs every 6 months. You will benefit from Zio patch monitoring and sleep study as an outpatient, coordinate with your PCP office to set up the test. Take your medications as prescribed. Please make sure that you are able to get your medications today by calling your pharmacy before you leave the hospital so that your treatment continuity is not broken. Home Health Attestation I certify that this patient is under my care and that I, or a physicians radiology physician assistant working with me, had a face to-face encounter that meets the home health [id number] encounter requirements with this patient. The encounter with the patient was in whole, or in part, for the following medical condition, which is the primary reason for home health care (list medical condition): I certify that, based on my findings, the following services are medically necessary home health services: My clinical findings support the need for the above services because: Further, I certify that my clinical findings support that this patient is homebound (i.e. absences from home require considerable and taxing effort and are for medical reasons or episcopalian services or infrequently or of short duration when for other reasons) because: Certification for Home Health Services: Based on the above findings, I certify that this patient is confined to the home and needs intermittent long term care, physical therapy and/or speech therapy or continues to need occupational therapy. The patient is under my care, and I have initiated the establishment of the plan of care. This patient will be followed by a physician who will periodically review the plan of care. Total Time Total Time Spent Total Time Spent (In Minutes): 35 Discharge Plan Discharge Items Patient Disposition: Home - Home Health Services Reason For Visit: FALL Discharge Diagnosis: Mechanical Fall Syncope Condition on Discharge: Fair Activity: As commented below Activity Comment: Use walker, c/w PT/OT. Non-emergency contact: Primary Care Provider Call non-emergency contact if: you have any medication questions and your symptoms worsen Follow-up/Referrals: Brigido Canada [Primary Care Provider] - Diet: Regular Addtl Attending Provider Instructions: Follow-up with your primary care physician within a week time and likely you will need labs CBC/CMP/magnesium/phosphorus. You were evaluated by neurology for possible syncope, you underwent CT scan and MRI of brain, EEG. No new acute/concerning findings were noted per my discussion with neurology that warrants medication changes. Continue to utilize walker at home given you have history of recurrent falls in the setting of brain tumor/resection/radiation. Continue to follow-up with serial MRIs every 6 months. You will benefit from Zio patch monitoring and sleep study as an outpatient, coordinate with your PCP office to set up the test. Take your medications as prescribed. Please make sure that you are able to get your medications today by calling your pharmacy before you leave the hospital so that your treatment continuity is not broken. Pending Studies at Discharge: No Stand-Alone Forms: [facility], Smoking Cessation Medications and DC Order Prescriptions: Continued clobazam [Onfi] 10 mg tablet 10 mg PO HS 30 Days Qty: 30 5RF venlafaxine 150 mg tablet extended release 24hr 150 mg PO DAILY levetiracetam 500 mg tablet 1,000 mg PO BID 90 Days Qty: 360 3RF dutasteride 0.5 mg capsule 0.5 mg PO DAILY Qty: 90 3RF levothyroxine 137 mcg tablet 137 mcg PO DAILYBB sennosides [senna] 8.6 mg tablet 8.6 mg PO HS acetaminophen 325 mg Tablet 325 mg PO QID PRN (Reason: Pain) fluticasone propionate 50 mcg/actuation spray,suspension 2 spray INTRANASAL BID loratadine 10 mg Tablet 10 mg PO DAILY Discharge Orders: Discharge Order (Routine); Ordered 11/16/24 Ordered By: Yumiko Houston Admission Data Admit Date/Time: 11/13/24 17:02 Attending Provider: Yumiko Houston Admit Provider: Jose Luis Royal Primary Care Provider: Brigido Canada Other Providers: Jose Luis Royal; Micah Tabares
[2024-11-16 12:58] VITALS: PULSE 61; O2SAT 89
[2024-11-16] MEDS: ACETAMINOPHEN 325 MG TAB PO PRN (13:06)
== END 2024-11-16 13:59 | disposition home health service (06) | DRG 92 ==
LOC: ED 11:56 → INTOOBSV 17:02 → 4W 17:02 → SUATTDRO 17:02 → 4W 19:16

== ENCOUNTER 2025-01-11 21:07 | Inpatient (IN) ==
[2025-01-11 21:58] LABS: Hematocrit (blood only) 38.1 % (42.0-52.0); Hemoglobin 12.4 g/dl (14.0-18.0); Immature Granulocytes # (auto) 0.12 K/uL (0.01-0.20); Immature Granulocytes % (auto) 0.6 %; Mean Corpuscular Hemoglobin 28.4 pg (25.0-34.0); Mean Corpuscular Volume 87.4 fL (80.0-100.0); Platelet Count 382 K/uL (130-400); RDW Standard Deviation 42.4 fL (36.4-46.3); Red Blood Count 4.36 M/uL (4.70-6.10); White Blood Count 19.44 K/ul (4.8-10.8)
[2025-01-11 22:17] LABS: Alanine Aminotransferase 40.0 U/L (7-52); Albumin Globulin Ratio 0.9 (0.9-2); Alkaline Phosphatase 162.0 U/L (34-104); Anion Gap 8.0 (3-11); Bilirubin,Total 0.4 mg/dl (0.2-1.0); Blood Urea Nitrogen 32.0 mg/dl (6-23); Calcium 9.0 mg/dl (8.6-10.3); Carbon Dioxide 25.0 mmol/L (21-32); Chloride 101.0 mmol/L (98-107); Creatinine Clr Calc Pharmacy 60.7 ml/min; Globulin 4.3 gm/dl (2.5-4.0); Glucose 122.0 mg/dl (70-99(Fasting)); Lipase 8.0 U/L (11-82); Potassium 4.6 mmol/L (3.5-5.1); Sodium 134.0 mmol/L (136-145); Total Protein 8.0 gm/dl (6.0-8.3)
[2025-01-11] MEDS: OPTIRAY 320 100ml IV ONE (22:19)
[2025-01-11 22:29] LABS: Chlamydia pneumoniae PCR Not Detected (NotDetected); Coronavirus 229E PCR Not Detected (NotDetected); Coronavirus CoV-2 (COVID19)PCR Not Detected (NotDetected); Coronavirus HKU1 PCR Not Detected (NotDetected); Coronavirus NL63 PCR Not Detected (NotDetected); Coronavirus OC43PCR Not Detected (NotDetected); Human Metapneumovirus PCR Not Detected (NotDetected); Parainfluenza Virus 1 PCR Not Detected (NotDetected); Parainfluenza Virus 2 PCR Not Detected (NotDetected); Parainfluenza Virus 3 PCR Not Detected (NotDetected); Parainfluenza Virus 4 PCR Not Detected (NotDetected); Respiratory Syncytial VirusPCR Not Detected (NotDetected); Rhinovirus/Enterovirus PCR Not Detected (NotDetected)
[2025-01-11 22:40] LABS: Partial Thromboplastin Time 30 Seconds (21-31)
[2025-01-11 23:06] LABS: Appearance Urine Turbid (Clear); Bacteria Urine Automated 4+ (None Seen); Epithelial Cell Urine Auto 0-2 /hpf (0-2); Glucose Urine UA Negative (Negative); WBC Urine Automated >50 /hpf (0-5)
[2025-01-11] MEDS: cefTRIAXone SODIUM 2,000 MG/50 ML BAG IV STA (23:10)
--- NOTE | 2025-01-11 23:24 | XRay Report ---
Exam(s): XR CXR 1 VIEW EXAM: XR Chest, 1 View CLINICAL HISTORY: Reason for exam: Trauma. TECHNIQUE: Frontal view of the chest. COMPARISON: 12/27/2024 FINDINGS: Lungs: Left hemidiaphragm elevation with left basilar subsegmental atelectasis. No consolidation. Pleural space: No significant pleural effusion. No pneumothorax. Heart: No cardiomegaly or pulmonary vascular congestion. Bones/joints: No acute fracture. No dislocation. IMPRESSION: No acute findings in the chest. Electronically signed by: Zheng Cid M.D. 01/11/25 23:23 PM
[2025-01-11] MEDS: ACETAMINOPHEN 1,000 MG/100 ML VIAL IV STA (23:31)
--- NOTE | 2025-01-11 23:31 | CT Scan Report ---
Exam(s): CT HEAD Without Contrast EXAM: CT Head Without Intravenous Contrast CLINICAL HISTORY: Reason for exam: trauma. TECHNIQUE: Axial computed tomography images of the head/brain without intravenous contrast. CTDI is 35.65 mGy and DLP is 702.46 mGy-cm. Automated exposure control was utilized for the study. A dose lowering technique was utilized adhering to the principles of ALARA. COMPARISON: 12/27/2024 FINDINGS: Brain: Right parietal lobe resection cavity with surrounding gliosis and calcification. Confluent hypoattenuation in the deep and periventricular cerebral white matter suggesting chronic small-vessel ischemic change or other leukoencephalopathy. No acute hemorrhage. No mass effect or midline shift. No territorial loss of thompson-white matter differentiation. Ventricles: No hydrocephalus. Bones/joints: Right parietal craniotomy. No skull fracture. Soft tissues: Unremarkable. Sinuses: Unremarkable as visualized. Mastoid air cells: No significant mastoid effusion. IMPRESSION: No acute intracranial process. Electronically signed by: Zheng Cid M.D. 01/11/25 23:30 PM
--- NOTE | 2025-01-11 23:33 | CT Scan Report ---
Exam(s): CT T SPINE EXAM: CT Thoracic Spine Without Intravenous Contrast CLINICAL HISTORY: Reason for exam: mid thoracic spine tenderness. TECHNIQUE: Axial computed tomography images of the thoracic spine without intravenous contrast. CTDI is 27.4 mGy and DLP is 1475.62 mGy-cm. Automated exposure control was utilized for the study. A dose lowering technique was utilized adhering to the principles of ALARA. COMPARISON: No relevant prior studies available. FINDINGS: Vertebrae: No acute fracture. No traumatic subluxation. Discs/spinal canal/neural foramina: Unremarkable. No significant spinal canal stenosis. Soft tissues: Unremarkable. IMPRESSION: No acute osseous findings. Electronically signed by: Zheng Cid M.D. 01/11/25 23:32 PM
--- NOTE | 2025-01-11 23:33 | CT Scan Report ---
Exam(s): CT C SPINE EXAM: CT Cervical Spine Without Intravenous Contrast CLINICAL HISTORY: Reason for exam: Trauma. TECHNIQUE: Axial computed tomography images of the cervical spine without intravenous contrast. CTDI is 26.96 mGy and DLP is 569.92 mGy-cm. Automated exposure control was utilized for the study. A dose lowering technique was utilized adhering to the principles of ALARA. COMPARISON: 12/27/2024 FINDINGS: Vertebrae: No acute fracture. No traumatic subluxation. Discs/spinal canal/neural foramina: Disc degeneration C5-C6. Uncovertebral joint degeneration C4-C5 and C5-C6 with [id number]- left foraminal narrowing at both levels. No significant central spinal canal stenosis. Soft tissues: Unremarkable. IMPRESSION: No acute findings in the cervical spine. Electronically signed by: Zheng Cid M.D. 01/11/25 23:32 PM
--- NOTE | 2025-01-11 23:40 | CT Scan Report ---
Exam(s): CT CHEST With Contrast IV Amt: 93 cc opti 320 EXAM: CT Chest With Intravenous Contrast CLINICAL HISTORY: Reason for exam: Trauma. TECHNIQUE: Axial computed tomography images of the chest with intravenous contrast. CTDI is 27.4 mGy and DLP is 1475.62 mGy-cm. Automated exposure control was utilized for the study. A dose lowering technique was utilized adhering to the principles of ALARA. CONTRAST: Patient received 93 cc opti 320 of IV contrast COMPARISON: 12/27/2024 FINDINGS: Again demonstrated are fractures through posterior left ribs 8-12 and lateral left ribs 8-10, as seen on 12/27/2024. No significant callus formation is evident at this time. No new fractures are visualized. Small left pleural effusion and [id number]-right lower lobe and lingular atelectasis have increased from prior exam. Lungs appear otherwise clear. There is no pneumothorax. There is no traumatic aortic injury, aneurysm, or dissection. There is no mediastinal hematoma. Main pulmonary artery is normal in caliber. Heart size is normal. There is coronary artery atherosclerosis. There is no pericardial effusion. There is no adenopathy. IMPRESSION: 1. When compared to 12/27/2024, no new acute traumatic findings. 2. Redemonstrated fractures of left ribs 8-12 as detailed above. 3. Small left pleural effusion, bibasilar atelectasis, both increased from prior. Electronically signed by: Zheng Cid M.D. 01/11/25 23:39 PM
--- NOTE | 2025-01-11 23:42 | CT Scan Report ---
Exam(s): CT ABDOMEN + PELVIS With Contrast IV Amt: 93 cc opti 320 EXAM: CT Abdomen and Pelvis With Intravenous Contrast CLINICAL HISTORY: Reason for exam: Trauma. TECHNIQUE: Axial computed tomography images of the abdomen and pelvis with intravenous contrast. CTDI is 27.4 mGy and DLP is 1475.62 mGy-cm. Automated exposure control was utilized for the study. A dose lowering technique was utilized adhering to the principles of ALARA. CONTRAST: Patient received 93 cc opti 320 of IV contrast COMPARISON: 12/27/2024 FINDINGS: Lung bases: Reported separately. ABDOMEN: Liver: Unremarkable. No evidence of hepatic injury. Gallbladder and bile ducts: Unremarkable. No calcified stones. No ductal dilation. Pancreas: Unremarkable. No ductal dilation. No evidence of pancreatic injury. Spleen: Unremarkable. No evidence of splenic injury. Adrenals: Unremarkable. No evidence of adrenal injury. Kidneys and ureters: Unremarkable. No hydronephrosis. No evidence of renal injury. Stomach and bowel: Increased colonic stool retention suggesting constipation. No evidence of bowel injury. No obstruction. No mucosal thickening. PELVIS: Appendix: Appendix not visualized. Bladder: Unremarkable. No evidence of bladder injury. Reproductive: Unremarkable as visualized. ABDOMEN and PELVIS: Intraperitoneal space: Some fat necrosis in the left retroperitoneum, likely residua of prior trauma. No free fluid or free air. Bones/joints: No acute fracture. No dislocation. Soft tissues: Unremarkable. Vasculature: Atherosclerosis. No evidence of vascular injury. No abdominal aortic aneurysm. Lymph nodes: Unremarkable. No enlarged lymph nodes. IMPRESSION: No acute findings in the abdomen or pelvis. Electronically signed by: Zheng Cid M.D. 01/11/25 23:41 PM
--- NOTE | 2025-01-11 23:57 | History & Physical Report ---
Date of Service January 11, 2025 Assessment & Plan (1) Severe sepsis: Plan: Assessment and plan below following discussion of case with ED provider and reviewing patient history/pertinent normal/abnormal diagnostic test results. Severe sepsis SIRS plus encephalopathy, history of neurocognitive impairment Secondary to complicated UTI, history of BPH Patient mentation improved after initial intervention at the ER as per ED staff. Hypoxemic respiratory failure, possibly from atelectasis/decreased inspiratory effort from recent rib fractures seizure disorder, stable on regimen pituitary tumor, patient follows with [facility], stable tumor measur ement on MRI as per outpatient note from last visit in 2023 oligodendroglioma status post surgery/chemoradiation, stable disease, patient follows with [facility] acromegaly central hypothyroidism, patient euthyroid DM 2 diet-controlled, documented on outpatient Endo notes, patient unaware of diagnosis, hemoglobin A1c of 6.3 last year chronic anemia, hemoglobin at baseline Recurrent falls secondary to ambulatory dysfunction, recent traumatic rib fractures/hemothorax/retroperitoneal hemorrhage, patient [facility] facility may not be appropriate for his disability. Admit to med/tele CS, Azactam IVF Supplemental O2 Incentive spirometry PT OT eval ISS BG goal 110-140, carb count coverage, updating A1c, DM education Case management consult for placement if patient decides not to return to [facility] after patient discussion with other family members. DVT prophylaxis. SCDs re: recent traumatic retroperitoneal hemorrhage Full code Patient requests for son to be given updates regarding care. Ms. Saad Miranda, contact #[phone]. Text document was generated using [employer] voice recognition software. It may contain grammatical or spelling errors. Kindly contact undersigned for clarification of any documentation item in question. History of Present Illness Chief Complaint: [place] sick, unwitnessed fall as per records Primary Care Provider: [facility] Fina Fontaine PCP : Dr. Noel History obtained from patient and records. Medical history significant for seizure disorder, pituitary tumor, oligodendroglioma status post surgery/chemoradiation, neurocognitive impairment as per records, LETA/nocturnal hypoxemia as per records, acromegaly, central hypothyroidism, DM 2 diet-controlled, chronic anemia (baseline hemoglobin 12-13), BPH, recent history of traumatic rib fractures/retroperitoneal hemorrhage, recurrent falls, ambulatory dysfunction. Recent [facility] confinement November 2024 for mechanical fall/syncope at [facility] Recent [facility] [place] December 27 to January 11, 2025 for multiple left-sided rib fractures/hemothorax, chest and abdominal wall contusions, retroperitoneal hemorrhage secondary to fall after being transferred from [facility] ER. No operative management. [facility] Patient had another unwitnessed fall at facility today. Patient found on the floor. Patient does not recall mechanism of fall. Possible head trauma. Patient more confused than usual. No witnessed seizures. No unusual pain as per patient. Denies cough, abdominal pain, diarrhea, dysuria symptoms. Noted to be febrile and tachycardic. O2 sats 80s upon arrival at the ER. IV ceftriaxone administered at the ER. Medical History as above Surgical History : Brain tumor surgery, hernia repair Family History : Heart disease, stomach cancer Personal/Social history : Non-smoker, no EtOH intake, disabled Allergies Allergy/AdvReac Type Severity Reaction Status Date / Time Fish Containing Products Allergy Severe Vomiting Verified 12/16/24 10:14 fish derived Allergy Severe Vomiting Verified 12/16/24 10:14 pollen extracts Allergy Intermediate ITCHY Verified 12/16/24 10:14 EYES, SNEEZING, CONGESTION Home Medications Medication Instructions Recorded Confirmed Type venlafaxine 150 mg tablet,extended 150 mg PO QAM 10/30/20 01/11/25 History release 24 hr sennosides 8.6 mg tablet (senna) 8.6 mg PO HS 09/26/21 01/11/25 History levetiracetam 500 mg tablet 1,000 mg (2 x 500 mg) PO BID 90 12/04/22 01/11/25 Rx days #360 tabs clobazam 10 mg tablet (Onfi) 10 mg PO HS 30 days #30 tabs 11/19/23 01/11/25 Rx acetaminophen 325 mg tablet 325 mg PO Q4 PRN Pain 11/13/24 01/11/25 History fluticasone propionate 50 1 spray intranasal BID 11/13/24 01/11/25 History mcg/actuation nasal spray,suspension loratadine 10 mg tablet 10 mg PO DAILY 11/13/24 01/11/25 History levothyroxine 137 mcg tablet 112 mcg PO DAILYBB 12/16/24 01/11/25 History cholecalciferol (vitamin D3) 25 25 mcg PO DAILY 01/11/25 01/11/25 History mcg (1,000 unit) tablet (Vitamin D3) cyanocobalamin (vitamin B-12) 1,000 mcg IM WK 01/11/25 01/11/25 History 1,000 mcg/mL injection solution dutasteride 0.5 mg capsule 0.5 mg PO QAM 01/11/25 01/11/25 History fluticasone propionate 50 1 spray intranasal BID PRN 01/11/25 01/11/25 History mcg/actuation nasal rhinorrhea spray,suspension folic acid 1 mg tablet 1 mg PO DAILY 01/11/25 01/11/25 History pyridoxine (vitamin B6) 100 mg 100 mg PO DAILY 01/11/25 01/11/25 History tablet (Vitamin B-6) sennosides 8.6 mg-docusate sodium 2 tab-cap PO BID 01/11/25 01/11/25 History 50 mg tablet (Senexon-S) Past Med/Surg History Problem List (Updated 01/12/25 @ 04:34 by Chaparro Bartholomew MD) Severe sepsis Acute confusion (Acute) Fall (Acute) UTI (urinary tract infection) (Acute) Multiple fractures of ribs of left side (Acute) Weakness (Acute) Seizure disorder seizure activity after brain surgery Syncope (Acute) Fall (Acute) Allergic rhinitis (Chronic) BPH with obstruction/lower urinary tract symptoms (Chronic) Depression (Chronic) Medical History Pituitary adenoma Anxiety Major neurocognitive disorder Moderate obstructive sleep apnea Incomplete emptying of bladder Hyperglycemia Frequency-urgency syndrome Nocturia Partial epilepsy, with intractable epilepsy, poorly controlled Partial epilepsy without impairment of consciousness Fatigue Pituitary abnormality Nocturnal hypoxemia Oligodendroglioma Laryngopharyngeal reflux Impotence, organic Eczema H/O brain tumor Left arm weakness Left hemiparesis Oligodendroglioma History of radiation therapy History of chemotherapy Fatigue Surgical History H/O colonoscopy (~2016) H/O hernia repair H/O brain surgery (~2006) Family History Sister Cancer Liver cancer Mother Cancer Bladder cancer Family/Other Ulcerative colitis Allergic rhinitis Social History Smoking Status: Never smoker Tobacco Type: Cigarettes Second Hand Exposure: No; Do You Dip or Chew Tobacco: No; Hx Alcohol Use: No Hx Substance Use: No Preferred Language: Montenegrin Communication Ability: Effective Shorthand Reporter Required: No Beliefs That Will Affect Care: None marital status: Current Living Situation: Retirement Current Living Situation Comment: [facility] [place] Other Information That Helps Us Care for You: No Feels Safe at Home: Yes Safety Concerns: Feels Safe At This Time Assistive Devices: Glasses, Hospital Bed and Walker Review of Systems Review of Systems: As per HPI, all other systems reviewed and negative Physical Exam Physical Exam: GENERAL: Comfortable, ill-appearing, no respiratory distress SKIN: Pallor, warm HEENT: Pale palpebral conjunctivae, no ptosis, dry buccal mucosa, nasal cannula in place NECK : Supple, no tenderness CHEST : Decreased breath sounds, left chest wall tenderness HEART : Tachycardic, no obvious murmurs ABDOMEN: Some distention, nontender EXTREMITIES : No LE swelling/tenderness, palpable pulses, no other conspicuous deformities noted NEUROLOGIC : Coherent, no facial asymmetry, gait and stance not assessed Results & Data Results & Data Vital Signs (Past 12 Hours) Vital Signs Temp Pulse Pulse Resp BP BP Pulse Ox 01/11/25 23:07 37.6 C H 109 H 27 H 158/95 H 95 01/11/25 22:39 109 H 16 148/92 H 92 01/11/25 22:00 116 H 19 137/90 91 01/11/25 21:55 113 H 22 88 L 01/11/25 21:33 113 H 01/11/25 21:18 38.5 C H 113 H 26 H 122/99 86 L O2 Del Method O2 Flow Rate 01/11/25 23:07 Room Air 01/11/25 22:39 Nasal Cannula 4 01/11/25 22:00 Nasal Cannula 4 01/11/25 21:55 Nasal Cannula 4 01/11/25 21:33 01/11/25 21:18 Room Air Laboratory Results Laboratory Results WBC 19.44 K/ul (4.8-10.8) H 01/11/25 21:40 RBC 4.36 M/uL (4.70-6.10) L 01/11/25 21:40 Hgb 12.4 g/dl (14.0-18.0) L 01/11/25 21:40 POC Hgb 12.9 g/dl (14.0-18.0) L 01/11/25 22:00 Hct 38.1 % (42.0-52.0) L 01/11/25 21:40 POC Hct 38 % (42-52) L 01/11/25 22:00 MCV 87.4 fL (80.0-100.0) 01/11/25 21:40 MCH 28.4 pg (25.0-34.0) 01/11/25 21:40 MCHC 32.5 g/dL (32.0-36.0) 01/11/25 21:40 RDW Std Deviation 42.4 fL (36.4-46.3) 01/11/25 21:40 RDW Coeff of Rajat 13.2 % (11.5-14.5) 01/11/25 21:40 Plt Count 382 K/uL (130-400) 01/11/25 21:40 MPV 10.2 fL (9.4-12.4) 01/11/25 21:40 Immature Gran % (Auto) 0.6 % 01/11/25 21:40 Neut % (Auto) 86.6 % 01/11/25 21:40 Lymph % (Auto) 6.1 % 01/11/25 21:40 [place] % (Auto) 6.4 % 01/11/25 21:40 Eos % (Auto) 0.1 % 01/11/25 21:40 Baso % (Auto) 0.2 % 01/11/25 21:40 Neut # (Auto) 16.84 K/uL (1.40-6.50) H 01/11/25 21:40 Lymph # (Auto) 1.19 K/uL (1.20-3.40) L 01/11/25 21:40 [place] # (Auto) 1.25 K/uL (0.11-0.59) H 01/11/25 21:40 Eos # (Auto) 0.01 K/uL (0.00-0.50) 01/11/25 21:40 Baso # (Auto) 0.03 K/uL (0.00-0.20) 01/11/25 21:40 Immature Gran # (Auto) 0.12 K/uL (0.01-0.20) 01/11/25 21:40 APTT 30 Seconds (21-31) 01/11/25 21:40 PTT Ratio 1.1 01/11/25 21:40 POC Sodium 134 mmol/L (135-144) L 01/11/25 22:00 Sodium 134 mmol/L (136-145) L 01/11/25 21:40 POC Potassium 4.8 mmol/L (3.3-5.0) 01/11/25 22:00 Potassium 4.6 mmol/L (3.5-5.1) 01/11/25 21:40 POC Chloride 103 mmol/L (101-112) 01/11/25 22:00 Chloride 101 mmol/L (98-107) 01/11/25 21:40 Carbon Dioxide 25 mmol/L (21-32) 01/11/25 21:40 POC Total CO2 21 mmol/L (24-31) L 01/11/25 22:00 Anion Gap 8 (3-11) 01/11/25 21:40 POC Anion Gap 16.0 mmol/L (16-25) 01/11/25 22:00 POC BUN 31 mg/dl (7-18) H 01/11/25 22:00 BUN 32 mg/dl (6-23) H 01/11/25 21:40 Creatinine 1.32 mg/dl (0.6-1.4) 01/11/25 21:40 POC Creatinine 1.3 mg/dl (0.6-1.3) 01/11/25 22:00 Est Cr Clr Drug Dosing 60.7 ml/min 01/11/25 21:40 eGFR 59.12 01/11/25 21:40 BUN/Creatinine Ratio 24.2 (10-20) H 01/11/25 21:40 Glucose 122 mg/dl (70-99(Fasting)) H 01/11/25 21:40 POC Glucose (other) 127 mg/dl (70-99) H 01/11/25 22:00 Calcium 9.0 mg/dl (8.6-10.3) 01/11/25 21:40 POC Ioniz Calcium Thelma 1.10 mmol/l (1.12-1.32) L 01/11/25 22:00 Total Bilirubin 0.4 mg/dl (0.2-1.0) 01/11/25 21:40 AST 26 U/L (13-39) 01/11/25 21:40 ALT 40 U/L (7-52) 01/11/25 21:40 Alkaline Phosphatase 162 U/L (34-104) H 01/11/25 21:40 Total Protein 8.0 gm/dl (6.0-8.3) 01/11/25 21:40 Albumin 3.7 gm/dl (3.4-5.0) 01/11/25 21:40 Globulin 4.3 gm/dl (2.5-4.0) H 01/11/25 21:40 Albumin/Globulin Ratio 0.9 (0.9-2) 01/11/25 21:40 Lipase 8 U/L (11-82) L 01/11/25 21:40 Procalcitonin 0.54 ng/ml (0-0.5) H 01/11/25 21:40 Urine Color Yellow 01/11/25 22:37 Urine Appearance Turbid (Clear) A 01/11/25 22:37 Urine pH 5.5 (4.5-7.5) 01/11/25 22:37 Ur Specific [place] 1.030 (1.000-1.030) 01/11/25 22:37 Urine Protein 2+ (Negative) H 01/11/25 22:37 Urine Glucose (UA) Negative (Negative) 01/11/25 22:37 Urine Ketones Trace (Negative) H 01/11/25 22:37 Urine Blood 3+ (Negative) H 01/11/25 22:37 Urine Nitrite Positive (Negative) A 01/11/25 22:37 Urine Bilirubin Negative (Negative) 01/11/25 22:37 Urine Urobilinogen Negative (Negative) 01/11/25 22:37 Ur Leukocyte Esterase 3+ (Negative) H 01/11/25 22:37 Urine WBC (Auto) >50 /hpf (0-5) H 01/11/25 22:37 Urine RBC (Auto) 3-5 /hpf (0-2) H 01/11/25 22:37 U Hyaline Cast (Auto) 11-20 /lpf (0-2) H 01/11/25 22:37 U Epithel Cells (Auto) 0-2 /hpf (0-2) 01/11/25 22:37 Urine Bacteria (Auto) 4+ (None Seen) H 01/11/25 22:37 Hyaline Casts Present /lpf (None Presnt) A 01/11/25 22:37 Urine Comment 01/11/25 22:37 Adenovirus (PCR) Not Detected (NotDetected) 01/11/25 21:35 B. pertussis DNA (PCR) Not Detected (NotDetected) 01/11/25 21:35 B.parapertussis DNA PCR Not Detected (NotDetected) 01/11/25 21:35 C. pneumoniae DNA (PCR) Not Detected (NotDetected) 01/11/25 21:35 Coronavirus OC43 (PCR) Not Detected (NotDetected) 01/11/25 21:35 Coronavirus HKU1 (PCR) Not Detected (NotDetected) 01/11/25 21:35 Coronavirus 229E (PCR) Not Detected (NotDetected) 01/11/25 21:35 SARS-CoV-2 (PCR) Not Detected (NotDetected) 01/11/25 21:35 Coronavirus NL63 (PCR) Not Detected (NotDetected) 01/11/25 21:35 Human Metapneumovir PCR Not Detected (NotDetected) 01/11/25 21:35 Influenza Type A (PCR) Not Detected (NotDetected) 01/11/25 21:35 Influenza Type B (PCR) Not Detected (NotDetected) 01/11/25 21:35 M. pneumoniae (PCR) Not Detected (NotDetected) 01/11/25 21:35 Parainfluenza 1 (PCR) Not Detected (NotDetected) 01/11/25 21:35 Parainfluenza 2 (PCR) Not Detected (NotDetected) 01/11/25 21:35 Parainfluenza 3 (PCR) Not Detected (NotDetected) 01/11/25 21:35 Parainfluenza 4 (PCR) Not Detected (NotDetected) 01/11/25 21:35 RSV (PCR) Not Detected (NotDetected) 01/11/25 21:35 Entero/Rhino (PCR) Not Detected (NotDetected) 01/11/25 21:35 Impressions Abdomen/Pelvis CT 01/11/25 21:28 Exam(s): CT ABDOMEN + PELVIS With Contrast IV Amt: 93 cc opti 320 EXAM: CT Abdomen and Pelvis With Intravenous Contrast CLINICAL HISTORY: Reason for exam: Trauma. TECHNIQUE: Axial computed tomography images of the abdomen and pelvis with intravenous contrast. CTDI is 27.4 mGy and DLP is 1475.62 mGy-cm. Automated exposure control was utilized for the study. A dose lowering technique was utilized adhering to the principles of ALARA. CONTRAST: Patient received 93 cc opti 320 of IV contrast COMPARISON: 12/27/2024 FINDINGS: Lung bases: Reported separately. ABDOMEN: Liver: Unremarkable. No evidence of hepatic injury. Gallbladder and bile ducts: Unremarkable. No calcified stones. No ductal dilation. Pancreas: Unremarkable. No ductal dilation. No evidence of pancreatic injury. Spleen: Unremarkable. No evidence of splenic injury. Adrenals: Unremarkable. No evidence of adrenal injury. Kidneys and ureters: Unremarkable. No hydronephrosis. No evidence of renal injury. Stomach and bowel: Increased colonic stool retention suggesting constipation. No evidence of bowel injury. No obstruction. No mucosal thickening. PELVIS: Appendix: Appendix not visualized. Bladder: Unremarkable. No evidence of bladder injury. Reproductive: Unremarkable as visualized. ABDOMEN and PELVIS: Intraperitoneal space: Some fat necrosis in the left retroperitoneum, likely residua of prior trauma. No free fluid or free air. Bones/joints: No acute fracture. No dislocation. Soft tissues: Unremarkable. Vasculature: Atherosclerosis. No evidence of vascular injury. No abdominal aortic aneurysm. Lymph nodes: Unremarkable. No enlarged lymph nodes. IMPRESSION: No acute findings in the abdomen or pelvis. Electronically signed by: Zheng iCd M.D. 01/11/25 23:[address] 01/11/25 21:28 Exam(s): CT C SPINE EXAM: CT Cervical Spine Without Intravenous Contrast CLINICAL HISTORY: Reason for exam: Trauma. TECHNIQUE: Axial computed tomography images of the cervical spine without intravenous contrast. CTDI is 26.96 mGy and DLP is 569.92 mGy-cm. Automated exposure control was utilized for the study. A dose lowering technique was utilized adhering to the principles of ALARA. COMPARISON: 12/27/2024 FINDINGS: Vertebrae: No acute fracture. No traumatic subluxation. Discs/spinal canal/neural foramina: Disc degeneration C5-C6. Uncovertebral joint degeneration C4-C5 and C5-C6 with [id number]- left foraminal narrowing at both levels. No significant central spinal canal stenosis. Soft tissues: Unremarkable. IMPRESSION: No acute findings in the cervical spine. Electronically signed by: Zheng Cid M.D. 01/11/25 23:[address] 01/11/25 21:28 Exam(s): CT CHEST With Contrast IV Amt: 93 cc opti 320 EXAM: CT Chest With Intravenous Contrast CLINICAL HISTORY: Reason for exam: Trauma. TECHNIQUE: Axial computed tomography images of the chest with intravenous contrast. CTDI is 27.4 mGy and DLP is 1475.62 mGy-cm. Automated exposure control was utilized for the study. A dose lowering technique was utilized adhering to the principles of ALARA. CONTRAST: Patient received 93 cc opti 320 of IV contrast COMPARISON: 12/27/2024 FINDINGS: Again demonstrated are fractures through posterior left ribs 8-12 and lateral left ribs 8-10, as seen on 12/27/2024. No significant callus formation is evident at this time. No new fractures are visualized. Small left pleural effusion and [id number]-right lower lobe and lingular atelectasis have increased from prior exam. Lungs appear otherwise clear. There is no pneumothorax. There is no traumatic aortic injury, aneurysm, or dissection. There is no mediastinal hematoma. Main pulmonary artery is normal in caliber. Heart size is normal. There is coronary artery atherosclerosis. There is no pericardial effusion. There is no adenopathy. IMPRESSION: 1. When compared to 12/27/2024, no new acute traumatic findings. 2. Redemonstrated fractures of left ribs 8-12 as detailed above. 3. Small left pleural effusion, bibasilar atelectasis, both increased from prior. Electronically signed by: Zheng Cid M.D. 01/11/25 23:39 PM Chest X-Ray 01/11/25 21:28 Exam(s): XR CXR 1 VIEW EXAM: XR Chest, 1 View CLINICAL HISTORY: Reason for exam: Trauma. TECHNIQUE: Frontal view of the chest. COMPARISON: 12/27/2024 FINDINGS: Lungs: Left hemidiaphragm elevation with left basilar subsegmental atelectasis. No consolidation. Pleural space: No significant pleural effusion. No pneumothorax. Heart: No cardiomegaly or pulmonary vascular congestion. Bones/joints: No acute fracture. No dislocation. IMPRESSION: No acute findings in the chest. Electronically signed by: Zheng Cid M.D. 01/11/25 23:[address] 01/11/25 21:28 Exam(s): CT HEAD Without Contrast EXAM: CT Head Without Intravenous Contrast CLINICAL HISTORY: Reason for exam: trauma. TECHNIQUE: Axial computed tomography images of the head/brain without intravenous contrast. CTDI is 35.65 mGy and DLP is 702.46 mGy-cm. Automated exposure control was utilized for the study. A dose lowering technique was utilized adhering to the principles of ALARA. COMPARISON: 12/27/2024 FINDINGS: Brain: Right parietal lobe resection cavity with surrounding gliosis and calcification. Confluent hypoattenuation in the deep and periventricular cerebral white matter suggesting chronic small-vessel ischemic change or other leukoencephalopathy. No acute hemorrhage. No mass effect or midline shift. No territorial loss of thompson-white matter differentiation. Ventricles: No hydrocephalus. Bones/joints: Right parietal craniotomy. No skull fracture. Soft tissues: Unremarkable. Sinuses: Unremarkable as visualized. Mastoid air cells: No significant mastoid effusion. IMPRESSION: No acute intracranial process. Electronically signed by: Zheng Cid M.D. 01/11/25 23:[address] 01/11/25 22:02 Exam(s): CT T SPINE EXAM: CT Thoracic Spine Without Intravenous Contrast CLINICAL HISTORY: Reason for exam: mid thoracic spine tenderness. TECHNIQUE: Axial computed tomography images of the thoracic spine without intravenous contrast. CTDI is 27.4 mGy and DLP is 1475.62 mGy-cm. Automated exposure control was utilized for the study. A dose lowering technique was utilized adhering to the principles of ALARA. COMPARISON: No relevant prior studies available. FINDINGS: Vertebrae: No acute fracture. No traumatic subluxation. Discs/spinal canal/neural foramina: Unremarkable. No significant spinal canal stenosis. Soft tissues: Unremarkable. IMPRESSION: No acute osseous findings. Electronically signed by: Zheng Cid M.D. 01/11/25 23:32 PM Diagnostic Findings EKG as per my interpretation :Rate 115, sinus tachycardia, LAD, LAFB, inferior infarct, septal infarct, T wave abnormalities inferior leads
[2025-01-12 00:36] LABS: Magnesium 2.6 mg/dl (1.7-2.4)
--- NOTE | 2025-01-12 00:41 | Emergency Department Note ---
Impression & Plan UTI (urinary tract infection), Fall, Acute confusion ED Provider Note NAME: SHARATH LEIVA AGE: 69 SEX: M : 1955 ARRIVES VIA: Ambulance INFORMANT: Patient, ED PROVIDER(S): Ngoc Dyson MD CHIEF COMPLAINT: Confusion, fall HPI: This is a 69-year-old male presented for confusion and fall. Patient was discharged from [facility] yesterday and sent to rehab facility. He had multiple unwitnessed falls apparently. He did hit his head. Complains of back pain below his cervical spine. He reports left-sided rib pain. He does not appear oriented at this time. He was febrile at his facility and states he does have a fever. He has had no cough. ROS: See above HPI for pertinent positives & negatives. A total of 10 systems reviewed and were otherwise negative. PAST MEDICAL HISTORY: See Below PAST SURGICAL HISTORY: See Below FAMILY HISTORY: See Below SOCIAL HISTORY: See Below HOME MEDICATIONS: See Below ALLERGIES: See Below VITALS: See Below PHYSICAL EXAMINATION: Primary Survey Airway: Intact Breathing: Normal, breath sounds equal bilaterally Circulation: Skin warm, distal pulses 2+ Disability Pupils: Equal and reactive to light GCS: 15, Motor Function: Moves all extremities. Sensory: No deficits Secondary Survey GEN: Chronically ill-appearing HEAD: Normal cephalic EYES: Pupils round reactive to light, conjunctiva clear, extraocular movements intact, no raccoons eyes ENT: no arellano's sign, nares patent, oropharynx clear NECK: No JVD, midline trachea, C-collar in place HEART: Regular rate and rhythm LUNGS: Clear to auscultation bilaterally. CHEST: Chest wall non-tender, no bruising/deformity BACK: Mid thoracic spine tender to palpation ABD: soft, non-tender, no rebound or guarding, PELVIS: Stable to rock EXT: 2+ global pulses, moving all extremities well, +5/5 muscle strength globally NEURO: CNII-XII grossly intact, no sensory deficits MEDICAL DECISION MAKING: This is a 69 year-old Sent for confusion and fall. Patient is currently febrile, tachycardic, hypoxic and tachypneic. He is not hypotensive however. Consider sepsis in addition to patient's falls. - Will do screening CTs to assess for traumatic mechanism/septic source - There is a leukocytosis to 19.44. Will start empiric antibiotics ceftriaxone -No significant electrolyte disturbance. Procalcitonin elevated at 0.54. -Urinalysis suggest UTI, likely source of current fever -Upper restaurant panel negative - CT imaging reveals no new traumatic findings but does reveal old rib fractures on the left. -Patient's persistently confused, will admit for urosepsis Differential diagnosis: Intracranial hemorrhage, sepsis, cervical spine fracture, thoracic fracture, liver laceration, splenic laceration Diagnostics interpreted by me: ECG: None Cardiac Monitoring: An order was placed for continuous cardiac monitoring. The monitor shows a rate of 109 with sinus sinus rhythm. 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 Syncope (Acute) Fall (Acute) Allergic rhinitis (Chronic) BPH with obstruction/lower urinary tract symptoms (Chronic) Depression (Chronic) Medical History Pituitary adenoma Anxiety Major neurocognitive disorder Moderate obstructive sleep apnea Incomplete emptying of bladder Hyperglycemia Frequency-urgency syndrome Nocturia Partial epilepsy, with intractable epilepsy, poorly controlled Partial epilepsy without impairment of consciousness Fatigue Pituitary abnormality Nocturnal hypoxemia Oligodendroglioma Laryngopharyngeal reflux Impotence, organic Eczema H/O brain tumor Left arm weakness Left hemiparesis Oligodendroglioma History of radiation therapy History of chemotherapy Fatigue Surgical History H/O colonoscopy (~2016) H/O hernia repair H/O brain surgery (~2006) Family History Sister Cancer Liver cancer Mother Cancer Bladder cancer Family/Other Ulcerative colitis Allergic rhinitis Social History Smoking Status: Never smoker Tobacco Type: Cigarettes Hx Alcohol Use: No Hx Substance Use: No Preferred Language: [place] Communication Ability: Effective 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 Beliefs That Will Affect Care: None marital status: Current Living Situation: Personal Care Facility Current Living Situation Comment: [place] [facility] [employer] Feels Safe at Home: Yes Assistive Devices: Cane Allergies Allergies Allergy/AdvReac Type Severity Reaction Status Date / Time Fish Containing Products Allergy Severe Vomiting Verified 12/16/24 10:14 fish derived Allergy Severe Vomiting Verified 12/16/24 10:14 pollen extracts Allergy Intermediate ITCHY Verified 12/16/24 10:14 EYES, SNEEZING, CONGESTION Home Meds Home Medications Medication Instructions Recorded Confirmed venlafaxine 150 mg tablet,extended 150 mg PO QAM 10/30/20 01/11/25 release 24 hr sennosides 8.6 mg tablet (senna) 8.6 mg PO HS 09/26/21 01/11/25 acetaminophen 325 mg tablet 325 mg PO Q4 PRN Pain 11/13/24 01/11/25 fluticasone propionate 50 1 spray intranasal BID 11/13/24 01/11/25 mcg/actuation nasal spray,suspension loratadine 10 mg tablet 10 mg PO DAILY 11/13/24 01/11/25 levothyroxine 137 mcg tablet 112 mcg PO DAILYBB 12/16/24 01/11/25 cholecalciferol (vitamin D3) 25 25 mcg PO DAILY 01/11/25 01/11/25 mcg (1,000 unit) tablet (Vitamin D3) cyanocobalamin (vitamin B-12) 1,000 mcg IM WK 01/11/25 01/11/25 1,000 mcg/mL injection solution dutasteride 0.5 mg capsule 0.5 mg PO QAM 01/11/25 01/11/25 fluticasone propionate 50 1 spray intranasal BID PRN 01/11/25 01/11/25 mcg/actuation nasal rhinorrhea spray,suspension folic acid 1 mg tablet 1 mg PO DAILY 01/11/25 01/11/25 pyridoxine (vitamin B6) 100 mg 100 mg PO DAILY 01/11/25 01/11/25 tablet (Vitamin B-6) sennosides 8.6 mg-docusate sodium 2 tab-cap PO BID 01/11/25 01/11/25 50 mg tablet (Senexon-S) Previous Rx's Medication Instructions Recorded levetiracetam 500 mg tablet 1,000 mg (2 x 500 mg) PO BID 90 12/04/22 days #360 tabs clobazam 10 mg tablet (Onfi) 10 mg PO HS 30 days #30 tabs 11/19/23 Results & Data (ED) Vital Signs Vital Signs - 24 hr 01/11/25 21:18 01/11/25 21:33 01/11/25 21:55 Temperature 38.5 C H Temperature Source Oral Pulse Rate 113 H 113 H 113 H Pulse Rate [Apical] Pulse Rhythm Regular Regular Pulse Strength Normal Respiratory Rate 26 H 22 Respiratory Effort / Characteristics Non-Labored Spontaneous Respiratory Depth Normal Respiratory Pattern Regular Blood Pressure 122/99 Blood Pressure [Left Arm] Blood Pressure Mean 106 Blood Pressure Mean [Left Arm] Pulse Oximetry 86 L 88 L Oxygen Delivery Method Room Air Nasal Cannula Oxygen Flow Rate 4 Sepsis Recent Fever Within 48 Hours Yes Sepsis New/Unexplained Change in Mental Status No Sepsis Action Taken by Nursing Physician Notified 01/11/25 22:00 01/11/25 22:39 01/11/25 23:07 Temperature 37.6 C H Temperature Source Oral Pulse Rate 116 H 109 H Pulse Rate [Apical] 109 H Pulse Rhythm Pulse Strength Respiratory Rate 19 16 27 H Respiratory Effort / Characteristics Non-Labored Spontaneous Respiratory Depth Normal Respiratory Pattern Regular Blood Pressure 137/90 148/92 H Blood Pressure [Left Arm] 158/95 H Blood Pressure Mean 105 110 Blood Pressure Mean [Left Arm] 116 Pulse Oximetry 91 92 95 Oxygen Delivery Method Nasal Cannula Nasal Cannula Room Air Oxygen Flow Rate 4 4 Sepsis Recent Fever Within 48 Hours Sepsis New/Unexplained Change in Mental Status Sepsis Action Taken by Nursing Laboratory Data 01/11/25 21:40 01/11/25 21:40 Lab Results 01/11/25 01/11/25 01/11/25 Range/Units 21:35 21:40 22:00 WBC 19.44 H (4.8-10.8) K/ul RBC 4.36 L (4.70-6.10) M/uL Hgb 12.4 L (14.0-18.0) g/dl POC Hgb 12.9 L (14.0-18.0) g/dl Hct 38.1 L (42.0-52.0) % POC Hct 38 L (42-52) % MCV 87.4 (80.0-100.0) fL MCH 28.4 (25.0-34.0) pg MCHC 32.5 (32.0-36.0) g/dL RDW Std Deviation 42.4 (36.4-46.3) fL RDW Coeff of Rajat 13.2 (11.5-14.5) % Plt Count 382 (130-400) K/uL MPV 10.2 (9.4-12.4) fL Immature Gran % (Auto) 0.6 % Neut % (Auto) 86.6 % Lymph % (Auto) 6.1 % [place] % (Auto) 6.4 % Eos % (Auto) 0.1 % Baso % (Auto) 0.2 % Neut # (Auto) 16.84 H (1.40-6.50) K/uL Lymph # (Auto) 1.19 L (1.20-3.40) K/uL [place] # (Auto) 1.25 H (0.11-0.59) K/uL Eos # (Auto) 0.01 (0.00-0.50) K/uL Baso # (Auto) 0.03 (0.00-0.20) K/uL Immature Gran # (Auto) 0.12 (0.01-0.20) K/uL APTT 30 (21-31) Seconds PTT Ratio 1.1 POC Sodium 134 L (135-144) mmol/L Sodium 134 L (136-145) mmol/L POC Potassium 4.8 (3.3-5.0) mmol/L Potassium 4.6 (3.5-5.1) mmol/L POC Chloride 103 (101-112) mmol/L Chloride 101 (98-107) mmol/L Carbon Dioxide 25 (21-32) mmol/L POC Total CO2 21 L (24-31) mmol/L Anion Gap 8 (3-11) POC Anion Gap 16.0 (16-25) mmol/L POC BUN 31 H (7-18) mg/dl BUN 32 H (6-23) mg/dl Creatinine 1.32 (0.6-1.4) mg/dl POC Creatinine 1.3 (0.6-1.3) mg/dl Est Cr Clr Drug Dosing 60.7 ml/min eGFR 59.12 BUN/Creatinine Ratio 24.2 H (10-20) Glucose 122 H (70-99(Fasting)) mg/dl POC Glucose (other) 127 H (70-99) mg/dl Calcium 9.0 (8.6-10.3) mg/dl POC Ioniz Calcium Thelma 1.10 L (1.12-1.32) mmol/l Magnesium 2.6 H (1.7-2.4) mg/dl Total Bilirubin 0.4 (0.2-1.0) mg/dl AST 26 (13-39) U/L ALT 40 (7-52) U/L Alkaline Phosphatase 162 H (34-104) U/L Total Protein 8.0 (6.0-8.3) gm/dl Albumin 3.7 (3.4-5.0) gm/dl Globulin 4.3 H (2.5-4.0) gm/dl Albumin/Globulin Ratio 0.9 (0.9-2) Lipase 8 L (11-82) U/L Procalcitonin 0.54 H (0-0.5) ng/ml Urine Color Urine Appearance (Clear) Urine pH (4.5-7.5) Ur Specific [place] (1.000-1.030) Urine Protein (Negative) Urine Glucose (UA) (Negative) Urine Ketones (Negative) Urine Blood (Negative) Urine Nitrite (Negative) Urine Bilirubin (Negative) Urine Urobilinogen (Negative) Ur Leukocyte Esterase (Negative) Urine WBC (Auto) (0-5) /hpf Urine RBC (Auto) (0-2) /hpf U Hyaline Cast (Auto) (0-2) /lpf U Epithel Cells (Auto) (0-2) /hpf Urine Bacteria (Auto) (None Seen) Hyaline Casts (None Presnt) /lpf Urine Comment Adenovirus (PCR) Not Detected (NotDetected) B. pertussis DNA (PCR) Not Detected (NotDetected) B.parapertussis DNA PCR Not Detected (NotDetected) C. pneumoniae DNA (PCR) Not Detected (NotDetected) Coronavirus OC43 (PCR) Not Detected (NotDetected) Coronavirus HKU1 (PCR) Not Detected (NotDetected) Coronavirus 229E (PCR) Not Detected (NotDetected) SARS-CoV-2 (PCR) Not Detected (NotDetected) Coronavirus NL63 (PCR) Not Detected (NotDetected) Human Metapneumovir PCR Not Detected (NotDetected) Influenza Type A (PCR) Not Detected (NotDetected) Influenza Type B (PCR) Not Detected (NotDetected) M. pneumoniae (PCR) Not Detected (NotDetected) Parainfluenza 1 (PCR) Not Detected (NotDetected) Parainfluenza 2 (PCR) Not Detected (NotDetected) Parainfluenza 3 (PCR) Not Detected (NotDetected) Parainfluenza 4 (PCR) Not Detected (NotDetected) RSV (PCR) Not Detected (NotDetected) Entero/Rhino (PCR) Not Detected (NotDetected) 01/11/25 Range/Units 22:37 WBC (4.8-10.8) K/ul RBC (4.70-6.10) M/uL Hgb (14.0-18.0) g/dl POC Hgb (14.0-18.0) g/dl Hct (42.0-52.0) % POC Hct (42-52) % MCV (80.0-100.0) fL MCH (25.0-34.0) pg MCHC (32.0-36.0) g/dL RDW Std Deviation (36.4-46.3) fL RDW Coeff of Rajat (11.5-14.5) % Plt Count (130-400) K/uL MPV (9.4-12.4) fL Immature Gran % (Auto) % Neut % (Auto) % Lymph % (Auto) % [place] % (Auto) % Eos % (Auto) % Baso % (Auto) % Neut # (Auto) (1.40-6.50) K/uL Lymph # (Auto) (1.20-3.40) K/uL [place] # (Auto) (0.11-0.59) K/uL Eos # (Auto) (0.00-0.50) K/uL Baso # (Auto) (0.00-0.20) K/uL Immature Gran # (Auto) (0.01-0.20) K/uL APTT (21-31) Seconds PTT Ratio POC Sodium (135-144) mmol/L Sodium (136-145) mmol/L POC Potassium (3.3-5.0) mmol/L Potassium (3.5-5.1) mmol/L POC Chloride (101-112) mmol/L Chloride (98-107) mmol/L Carbon Dioxide (21-32) mmol/L POC Total CO2 (24-31) mmol/L Anion Gap (3-11) POC Anion Gap (16-25) mmol/L POC BUN (7-18) mg/dl BUN (6-23) mg/dl Creatinine (0.6-1.4) mg/dl POC Creatinine (0.6-1.3) mg/dl Est Cr Clr Drug Dosing ml/min eGFR BUN/Creatinine Ratio (10-20) Glucose (70-99(Fasting)) mg/dl POC Glucose (other) (70-99) mg/dl Calcium (8.6-10.3) mg/dl POC Ioniz Calcium Thelma (1.12-1.32) mmol/l Magnesium (1.7-2.4) mg/dl Total Bilirubin (0.2-1.0) mg/dl AST (13-39) U/L ALT (7-52) U/L Alkaline Phosphatase (34-104) U/L Total Protein (6.0-8.3) gm/dl Albumin (3.4-5.0) gm/dl Globulin (2.5-4.0) gm/dl Albumin/Globulin Ratio (0.9-2) Lipase (11-82) U/L Procalcitonin (0-0.5) ng/ml Urine Color Yellow Urine Appearance Turbid A (Clear) Urine pH 5.5 (4.5-7.5) Ur Specific [place] 1.030 (1.000-1.030) Urine Protein 2+ H (Negative) Urine Glucose (UA) Negative (Negative) Urine Ketones Trace H (Negative) Urine Blood 3+ H (Negative) Urine Nitrite Positive A (Negative) Urine Bilirubin Negative (Negative) Urine Urobilinogen Negative (Negative) Ur Leukocyte Esterase 3+ H (Negative) Urine WBC (Auto) >50 H (0-5) /hpf Urine RBC (Auto) 3-5 H (0-2) /hpf U Hyaline Cast (Auto) 11-20 H (0-2) /lpf U Epithel Cells (Auto) 0-2 (0-2) /hpf Urine Bacteria (Auto) 4+ H (None Seen) Hyaline Casts Present A (None Presnt) /lpf Urine Comment Adenovirus (PCR) (NotDetected) B. pertussis DNA (PCR) (NotDetected) B.parapertussis DNA PCR (NotDetected) C. pneumoniae DNA (PCR) (NotDetected) Coronavirus OC43 (PCR) (NotDetected) Coronavirus HKU1 (PCR) (NotDetected) Coronavirus 229E (PCR) (NotDetected) SARS-CoV-2 (PCR) (NotDetected) Coronavirus NL63 (PCR) (NotDetected) Human Metapneumovir PCR (NotDetected) Influenza Type A (PCR) (NotDetected) Influenza Type B (PCR) (NotDetected) M. pneumoniae (PCR) (NotDetected) Parainfluenza 1 (PCR) (NotDetected) Parainfluenza 2 (PCR) (NotDetected) Parainfluenza 3 (PCR) (NotDetected) Parainfluenza 4 (PCR) (NotDetected) RSV (PCR) (NotDetected) Entero/Rhino (PCR) (NotDetected) Administered Medications Aztreonam 2,000 mg/ Dextrose 100 mls @ 100 mls/hr IV Q8H JAMES Stop: 01/22/25 00:14 Last Admin: 01/12/25 00:43 Dose: 100 mls/hr Documented By: RUBEN Sodium Chloride (Nss) 1,000 mls @ 100 mls/hr IV .Q10H ONE Stop: 01/12/25 10:04 Last Admin: 01/12/25 00:44 Dose: 100 mls/hr Documented By: RUBEN Discontinued Medications Ceftriaxone Sodium (Rocephin) 2,000 mg in 50 mls @ 100 mls/hr IV NOW STA Stop: 01/11/25 23:23 Last Infusion: 01/11/25 23:49 Dose: Infused Documented By: Admin: 01/11/25 23:10 Dose: 100 mls/hr Documented By: RUBEN Acetaminophen (Ofirmev) 1,000 mg in 100 mls @ 400 mls/hr IV NOW STA Stop: 01/11/25 23:40 Last Infusion: 01/11/25 23:49 Dose: Infused Documented By: Admin: 01/11/25 23:31 Dose: 400 mls/hr Documented By: RUBEN Ioversol (Optiray 320 100ml) 93 ml IV ONCE ONE Stop: 01/11/25 22:20 Last Admin: 01/11/25 22:19 Dose: 93 ml Documented By: [facility] Imaging Data Radiologist's Impression: Abdomen/Pelvis CT 01/11/25 21:28 Exam(s): CT ABDOMEN + PELVIS With Contrast IV Amt: 93 cc opti 320 EXAM: CT Abdomen and Pelvis With Intravenous Contrast CLINICAL HISTORY: Reason for exam: Trauma. TECHNIQUE: Axial computed tomography images of the abdomen and pelvis with intravenous contrast. CTDI is 27.4 mGy and DLP is 1475.62 mGy-cm. Automated exposure control was utilized for the study. A dose lowering technique was utilized adhering to the principles of ALARA. CONTRAST: Patient received 93 cc opti 320 of IV contrast COMPARISON: 12/27/2024 FINDINGS: Lung bases: Reported separately. ABDOMEN: Liver: Unremarkable. No evidence of hepatic injury. Gallbladder and bile ducts: Unremarkable. No calcified stones. No ductal dilation. Pancreas: Unremarkable. No ductal dilation. No evidence of pancreatic injury. Spleen: Unremarkable. No evidence of splenic injury. Adrenals: Unremarkable. No evidence of adrenal injury. Kidneys and ureters: Unremarkable. No hydronephrosis. No evidence of renal injury. Stomach and bowel: Increased colonic stool retention suggesting constipation. No evidence of bowel injury. No obstruction. No mucosal thickening. PELVIS: Appendix: Appendix not visualized. Bladder: Unremarkable. No evidence of bladder injury. Reproductive: Unremarkable as visualized. ABDOMEN and PELVIS: Intraperitoneal space: Some fat necrosis in the left retroperitoneum, likely residua of prior trauma. No free fluid or free air. Bones/joints: No acute fracture. No dislocation. Soft tissues: Unremarkable. Vasculature: Atherosclerosis. No evidence of vascular injury. No abdominal aortic aneurysm. Lymph nodes: Unremarkable. No enlarged lymph nodes. IMPRESSION: No acute findings in the abdomen or pelvis. Electronically signed by: Zheng Cid M.D. 01/11/25 23:[address] 01/11/25 21:28 Exam(s): CT C SPINE EXAM: CT Cervical Spine Without Intravenous Contrast CLINICAL HISTORY: Reason for exam: Trauma. TECHNIQUE: Axial computed tomography images of the cervical spine without intravenous contrast. CTDI is 26.96 mGy and DLP is 569.92 mGy-cm. Automated exposure control was utilized for the study. A dose lowering technique was utilized adhering to the principles of ALARA. COMPARISON: 12/27/2024 FINDINGS: Vertebrae: No acute fracture. No traumatic subluxation. Discs/spinal canal/neural foramina: Disc degeneration C5-C6. Uncovertebral joint degeneration C4-C5 and C5-C6 with [id number]- left foraminal narrowing at both levels. No significant central spinal canal stenosis. Soft tissues: Unremarkable. IMPRESSION: No acute findings in the cervical spine. Electronically signed by: Zheng Cid M.D. 01/11/25 23:[address] 01/11/25 21:28 Exam(s): CT CHEST With Contrast IV Amt: 93 cc opti 320 EXAM: CT Chest With Intravenous Contrast CLINICAL HISTORY: Reason for exam: Trauma. TECHNIQUE: Axial computed tomography images of the chest with intravenous contrast. CTDI is 27.4 mGy and DLP is 1475.62 mGy-cm. Automated exposure control was utilized for the study. A dose lowering technique was utilized adhering to the principles of ALARA. CONTRAST: Patient received 93 cc opti 320 of IV contrast COMPARISON: 12/27/2024 FINDINGS: Again demonstrated are fractures through posterior left ribs 8-12 and lateral left ribs 8-10, as seen on 12/27/2024. No significant callus formation is evident at this time. No new fractures are visualized. Small left pleural effusion and [id number]-right lower lobe and lingular atelectasis have increased from prior exam. Lungs appear otherwise clear. There is no pneumothorax. There is no traumatic aortic injury, aneurysm, or dissection. There is no mediastinal hematoma. Main pulmonary artery is normal in caliber. Heart size is normal. There is coronary artery atherosclerosis. There is no pericardial effusion. There is no adenopathy. IMPRESSION: 1. When compared to 12/27/2024, no new acute traumatic findings. 2. Redemonstrated fractures of left ribs 8-12 as detailed above. 3. Small left pleural effusion, bibasilar atelectasis, both increased from prior. Electronically signed by: Zheng Cid M.D. 01/11/25 23:39 PM Chest X-Ray 01/11/25 21:28 Exam(s): XR CXR 1 VIEW EXAM: XR Chest, 1 View CLINICAL HISTORY: Reason for exam: Trauma. TECHNIQUE: Frontal view of the chest. COMPARISON: 12/27/2024 FINDINGS: Lungs: Left hemidiaphragm elevation with left basilar subsegmental atelectasis. No consolidation. Pleural space: No significant pleural effusion. No pneumothorax. Heart: No cardiomegaly or pulmonary vascular congestion. Bones/joints: No acute fracture. No dislocation. IMPRESSION: No acute findings in the chest. Electronically signed by: Zheng Cid M.D. 01/11/25 23:[address] 01/11/25 21:28 Exam(s): CT HEAD Without Contrast EXAM: CT Head Without Intravenous Contrast CLINICAL HISTORY: Reason for exam: trauma. TECHNIQUE: Axial computed tomography images of the head/brain without intravenous contrast. CTDI is 35.65 mGy and DLP is 702.46 mGy-cm. Automated exposure control was utilized for the study. A dose lowering technique was utilized adhering to the principles of ALARA. COMPARISON: 12/27/2024 FINDINGS: Brain: Right parietal lobe resection cavity with surrounding gliosis and calcification. Confluent hypoattenuation in the deep and periventricular cerebral white matter suggesting chronic small-vessel ischemic change or other leukoencephalopathy. No acute hemorrhage. No mass effect or midline shift. No territorial loss of thompson-white matter differentiation. Ventricles: No hydrocephalus. Bones/joints: Right parietal craniotomy. No skull fracture. Soft tissues: Unremarkable. Sinuses: Unremarkable as visualized. Mastoid air cells: No significant mastoid effusion. IMPRESSION: No acute intracranial process. Electronically signed by: Zheng Cid M.D. 01/11/25 23:[address] 01/11/25 22:02 Exam(s): CT T SPINE EXAM: CT Thoracic Spine Without Intravenous Contrast CLINICAL HISTORY: Reason for exam: mid thoracic spine tenderness. TECHNIQUE: Axial computed tomography images of the thoracic spine without intravenous contrast. CTDI is 27.4 mGy and DLP is 1475.62 mGy-cm. Automated exposure control was utilized for the study. A dose lowering technique was utilized adhering to the principles of ALARA. COMPARISON: No relevant prior studies available. FINDINGS: Vertebrae: No acute fracture. No traumatic subluxation. Discs/spinal canal/neural foramina: Unremarkable. No significant spinal canal stenosis. Soft tissues: Unremarkable. IMPRESSION: No acute osseous findings. Electronically signed by: Zheng Cid M.D. 01/11/25 23:32 PM Discharge Plan Visit Data Chief Complaint: Fall Stated Complaint: INJURY ALERT, FALL ED Provider: Ngoc Dyson Discharge Problem: UTI (urinary tract infection), Fall, Acute confusion Patient Disposition: Admitted As Inpatient Condition: Serious Forms Stand Alone Forms: My [facility] Prescriptions Prescriptions: No Action clobazam [Onfi] 10 mg tablet 10 mg PO HS 30 Days Qty: 30 5RF venlafaxine 150 mg tablet extended release 24hr 150 mg PO QAM levetiracetam 500 mg tablet 1,000 mg PO BID 90 Days Qty: 360 3RF sennosides [senna] 8.6 mg tablet 8.6 mg PO HS levothyroxine 137 mcg tablet 112 mcg PO DAILYBB dutasteride 0.5 mg capsule 0.5 mg PO QAM fluticasone propionate 50 mcg/actuation spray,suspension 1 spray INTRANASAL BID PRN (Reason: rhinorrhea) folic acid 1 mg Tablet 1 mg PO DAILY cholecalciferol (vitamin D3) [Vitamin D3] 25 mcg (1,000 unit) Tablet 25 mcg PO DAILY cyanocobalamin (vitamin B-12) 1,000 mcg/mL Solution 1,000 mcg IM WK Rx Instructions: inject on MONDAYS END DATE 02/01/25 pyridoxine (vitamin B6) [Vitamin B-6] 100 mg Tablet 100 mg PO DAILY sennosides-docusate sodium [Senexon-S] 8.6-50 mg Tablet 2 tab-cap PO BID acetaminophen 325 mg Tablet 325 mg PO Q4 PRN (Reason: Pain) fluticasone propionate 50 mcg/actuation spray,suspension 1 spray INTRANASAL BID loratadine 10 mg Tablet 10 mg PO DAILY Referrals Referrals: [facility] [Primary Care Provider] - Discharge Problem: UTI (urinary tract infection) Qualifiers: Urinary tract infection type: acute cystitis Fall Qualifiers: Encounter type: initial encounter Qualified Code(s): W19.XXXA - Unspecified fall, initial encounter
[2025-01-12] MEDS: AZTREONAM 2,000 MG in DEXTROSE 5% MINI-B 100 ML IV SCH (00:43)
[2025-01-12] MEDS: SODIUM CHLORIDE 0.9% 1,000 ML IV ONE ×2 (00:44→23:57)
[2025-01-12 01:01] LABS: Base Excess VBG 0.5 mEq/L; HCO3 VBG 25 mmol/L; Oxygen Saturation VBG < 60.0 %; PCO2 VBG 37 mmHg (38-50); PO2 VBG 28 mmHg; pH VBG 7.43 (7.36-7.41)
[2025-01-12] MEDS ORDERED: PROMETHAZINE 6.25 MG/50.25 ML BAG IV PRN (01:14)
[2025-01-12] MEDS: METOPROLOL TARTRATE 1 MG/ML VIAL IV STA (01:24)
[2025-01-12] MEDS ORDERED: CARBOHYDRATES FOR HYPOGLYCEMIA PO PRN (02:46)
[2025-01-12] MEDS ORDERED: GLUCOSE 10 TAB/TUBE PO PRN (02:46)
[2025-01-12] MEDS ORDERED: GLUCAGON FOR INJ 1 MG VIAL SQ PRN (02:46)
[2025-01-12] MEDS ORDERED: GLUCOSE 40% GEL 15 GM TUBE PO PRN (02:46)
[2025-01-12] MEDS ORDERED: DEXTROSE 50% 50 ML SYRINGE IV PRN (02:46)
[2025-01-12] MEDS: INSULIN ASPART PER UNIT CHARGE SC SCH (03:30)
[2025-01-12] MEDS: LEVOTHYROXINE SODIUM 112 MCG TABLET PO SCH (05:54)
[2025-01-12] MEDS: ACETAMINOPHEN 325 MG TAB PO PRN (06:00)
[2025-01-12 07:24] LABS: Anion Gap 10.0 (3-11); Calcium 8.8 mg/dl (8.6-10.3); Carbon Dioxide 22.0 mmol/L (21-32); Chloride 102.0 mmol/L (98-107); Potassium 4.4 mmol/L (3.5-5.1); Sodium 134.0 mmol/L (136-145)
[2025-01-12 07:30] LABS: Blood Urea Nitrogen 31.0 mg/dl (6-23); Creatinine Clr Calc Pharmacy 69.3 ml/min; Glucose 105.0 mg/dl (70-99(Fasting))
[2025-01-12 08:32] LABS: Hematocrit (blood only) 38.7 % (42.0-52.0); Hemoglobin 12.4 g/dl (14.0-18.0); Immature Granulocytes # (auto) 0.19 K/uL (0.01-0.20); Immature Granulocytes % (auto) 0.9 %; Mean Corpuscular Hemoglobin 28.6 pg (25.0-34.0); Mean Corpuscular Volume 89.2 fL (80.0-100.0); Platelet Count 370 K/uL (130-400); RDW Standard Deviation 43.4 fL (36.4-46.3); Red Blood Count 4.34 M/uL (4.70-6.10); White Blood Count 21.95 K/ul (4.8-10.8)
[2025-01-12] MEDS: levETIRAcetam 500 MG TAB PO SCH (10:05)
[2025-01-12] MEDS: VENLAFAXINE HCL XR 150 MG CAPXR PO SCH (10:06)
[2025-01-12] MEDS: DOCUSATE SODIUM/SENNA 50/8.6MG TAB PO SCH (10:06)
[2025-01-12] MEDS: LORATADINE 10 MG TAB PO SCH (10:06)
[2025-01-12] MEDS: PYRIDOXINE HCL 50 MG TAB PO SCH (10:07)
[2025-01-12] MEDS: FOLIC ACID 1 MG TAB PO SCH (10:07)
[2025-01-12] MEDS: CHOLECALCIFEROL 25 MCG (1000 UNITS) TAB PO SCH (10:07)
[2025-01-12] MEDS: FINASTERIDE 5 MG TAB PO SCH (10:08)
[2025-01-12] MEDS: FLUTICASONE PROPIONATE NA SPR 16 GM BTL SCH (10:08)
[2025-01-12 10:54] LABS: Hemoglobin A1C 6.1 % (4.5-5.6)
--- NOTE | 2025-01-12 13:18 | Hospitalist Progress Note ---
Date of Service January 12, 2025 Assessment & Plan (1) Severe sepsis: Plan: Assessment and plan below following discussion of case with ED provider and reviewing patient history/pertinent normal/abnormal diagnostic test results. Severe sepsis SIRS plus encephalopathy, history of neurocognitive impairment Secondary to complicated UTI, history of BPH Patient mentation improved after initial intervention at the ER as per ED staff. - Answering most simple questions today Urine culture: Pending Blood cultures: Pending Continue empiric aztreonam IV Abnormal CT chest finding There is coronary artery atherosclerosis. - Further work up, management, and ff up as outpatient Hypoxemic respiratory failure, possibly from atelectasis/decreased inspiratory effort from recent rib fracturess - resolved currently on room air Continue incentive spirometry seizure disorder, stable on regimen pituitary tumor, patient follows with [facility] Endocrinology, stable tumor measurement on MRI as per outpatient note from last visit in 2023 oligodendroglioma status post surgery/chemoradiation, stable disease, patient follows with [facility] Neurosurgery and Oncology acromegaly central hypothyroidism, patient euthyroid DM 2 diet-controlled, documented on outpatient Endo notes, patient unaware of diagnosis, hemoglobin A1c of 6.3 last year chronic anemia, hemoglobin at baseline Recurrent falls secondary to ambulatory dysfunction, recent traumatic rib fractures/hemothorax/retroperitoneal hemorrhage, patient [facility] assisted living facility may not be appropriate for his disability. DVT prophylaxis. SCDs re: recent traumatic retroperitoneal hemorrhage Full code Admission and Anticipated Discharge Date Admission Date: January 11, 2025 Subjective Seen resting in bed, comfortable, not in distress awake and alert, oriented x 2 Answers most simple questions appropriately States he feels okay overall except for left-sided rib pain No shortness of breath, cough, fevers or chills Denies abdominal pain, has some mild dysuria No other new symptoms Review of Systems Review of Systems: all noted and negative except for above Physical Exam Physical Exam: General- oriented x 2, not in distress, speaks in sentences with no effort or accessory muscle use Eyes- anicteric Neck- no JVD Lungs- clear breath sounds bilaterally, no rales/wheezes Heart- normal rate, regular rhythm; no murmurs Abdomen- normal bowel sounds, nondistended, soft, nontender Extremities- no pretibial edema, no calf tenderness Neuro- alert, oriented x 2; no gross focal neurologic deficits Skin- warm & dry Results & Data Results & Data Vital Signs (Past 12 Hours) Vital Signs Temp Pulse Pulse Resp BP Pulse Ox O2 Del Method 01/12/25 11:18 36.8 C 100 H 18 135/84 97 Nasal Cannula 01/12/25 10:00 Nasal Cannula 01/12/25 07:46 36.8 C 104 H 18 154/91 H 92 Room Air 01/12/25 07:18 103 H 01/12/25 02:50 Nasal Cannula 01/12/25 02:50 37.0 C 65 18 148/91 H 96 Nasal Cannula 01/12/25 02:43 101 H 01/12/25 02:15 36.7 C 98 H 20 142/84 H 100 Nasal Cannula 01/12/25 01:30 104 H 24 147/90 H 90 Nasal Cannula O2 Flow Rate 01/12/25 11:18 2 01/12/25 10:00 3 01/12/25 07:46 01/12/25 07:18 01/12/25 02:50 4 01/12/25 02:50 4 01/12/25 02:43 01/12/25 02:15 4 01/12/25 01:30 4 all noted and reviewed including below
[2025-01-12 15:12] LABS: A calco-baum cmplx NotReported Not Detected (NotDetected); Bact fragilis Not Reported Not Detected (NotDetected); Blood Culture Id Panel See PCR Comment (NotDetected); C auris Not Reported Not Detected (NotDetected); Calbicans Not Reported Not Detected (NotDetected); Candida glabrata Not Reported Not Detected (NotDetected); Candida krusei Not Reported Not Detected (NotDetected); Cneoformans/gatti Not Reported Not Detected (NotDetected); Cparapsilosis Not Reported Not Detected (NotDetected); Ctropicalis Not Reported Not Detected (NotDetected); E cloacae compx Not Reported Not Detected (NotDetected); Efaecalis Not Reported Not Detected (NotDetected); Efaecium Not Reported Not Detected (NotDetected); Enterobacterales Not Reported Not Detected (NotDetected); Escherichia coli Not Reported Not Detected (NotDetected); H influenzae Not Reported Not Detected (NotDetected); K aerogenes Not Reported Not Detected (NotDetected); Koxytoca Not Reported Not Detected (NotDetected); Kpneumoniae grp Not Reported Not Detected (NotDetected); Lmonocyt Not Reported Not Detected (NotDetected); N meningitidis Not Reported Not Detected (NotDetected); P aeruginosa Not Reported Not Detected (NotDetected); Proteus spp Not Reported Not Detected (NotDetected); Salmonella spp Not Reported Not Detected (NotDetected); Staph lugdunensis Not Reported Not Detected (NotDetected); Staph spp. Not Reported DETECTED (NotDetected); Staphaureus Not Reported DETECTED (NotDetected); Staphepi Not Reported Not Detected (NotDetected); Staphylococcus spp. DETECTED (NotDetected); Stenmaltophilia Not Reported Not Detected (NotDetected); Strep agal(GrpB) Not Reported Not Detected (NotDetected); Strep pneum Not Reported Not Detected (NotDetected); Strep pyog (GrpA) Not Reported Not Detected (NotDetected); Strep spp Not Reported Not Detected (NotDetected); mecAC+MREJ Resistant Gene MRSA Not Detected (NotDetected)
[2025-01-12] MEDS ORDERED: DAPTOmycin 625 MG in SYRINGE 0 ML IV ONE (16:46)
[2025-01-12] MEDS: DAPTOmycin 600 MG in SYRINGE 0 ML IV SCH (16:55)
[2025-01-12] MEDS: SENNA 8.6 MG TAB PO SCH (21:44)
[2025-01-12] MEDS: MELATONIN 3 MG TAB PO PRN (23:18)
[2025-01-13] MEDS ORDERED: ONDANSETRON INJ 2 MG/ML 2 ML VIAL IV PRN (08:34)
--- NOTE | 2025-01-13 13:48 | Infectious Disease Consult ---
Date of Service January 13, 2025 Telehealth Information I performed this visit using a real-time telehealth connection between my location and the patients location ([facility]). After connecting through interactive tele-video, patient was identified by name and date of and/or wristband check.Patient (or authorized healthcare care support representative) was informed that this was a telemedicine visit and it was being conducted confidentially over secure lines. My office door was closed and no one else was present in the room with me.Patient (or authorized healthcare care support representative) provided consent to proceed with the visit, expressed an understanding of privacy and security of the telemedicine visit, and gave permission to have a hospital care support representative in the room in order to assist with the visit and to conduct portions of the visit, as needed. I informed the patient (or authorized healthcare care support representative) that I reviewed their record and presented the opportunity for them to ask any questions regarding the visit today. The patient agreed to participate. Assessment & Plan (1) MSSA bacteremia: (2) Severe sepsis: (3) Oligodendroglioma: (4) Multiple fractures of ribs of left side: Plan With no obvious source at this point, I would be concerned about endocarditis with this high burden bacteremia. Since the Staph aureus growing in blood is MSSA as identified via PCR, I would recommend stopping daptomycin and starting IV cefazolin 2 g every 8 hours. Please obtain a transthoracic echo. Send for repeat blood culture today and then continue to send for blood culture until negative for 48 hours. The Staph aureus growing in the urine is likely spilling from the bloodstream, so I am not worried about urinary tract infection at this point. Thank you for consulting Infectious Disease. We will continue to follow. History of Present Illness History of Present Illness Mr. Miranda is a 69-year-old man with past medical history of oligodendroglioma status post surgery/chemoradiation, neurocognitive impairment, seizure disorder, LETA, acromegaly, central hypothyroidism, type 2 diabetes, BPH and recent history of traumatic rib fractures/retroperitoneal hemorrhage who was admitted to [facility] [address] after a a fall at his residing facility on the day of presentation. He was also noticed to be more confused than usual. On presentation, he was febrile at 38.5, tachycardic at 113, normotensive at 122/99, and requiring 4 L of oxygen via nasal cannula. Initial workup showed leukocytosis of 19.4 (ANC 16.8), creatinine of 1.3 (around his baseline), and UA with more than 50 WBCs and 4+ bacteria. Shortly after admission, 2 sets of blood culture came back positive for MSSA identified via PCR. CT of the spine as well as CT abdomen and pelvis were performed which demonstrated no abnormalities. CT chest showed no acute changes since December 27 and redemonstrated the fractures of the left ribs 8 through 12 with a small left pleural effusion and bibasilar atelectasis. ID team was consulted for further recommendations and to help guide antibiotic treatment. Allergies Allergy/AdvReac Type Severity Reaction Status Date / Time Fish Containing Products Allergy Severe Vomiting Verified 12/16/24 10:14 fish derived Allergy Severe Vomiting Verified 12/16/24 10:14 pollen extracts Allergy Intermediate ITCHY Verified 12/16/24 10:14 EYES, SNEEZING, CONGESTION Home Medications Medication Instructions Recorded Confirmed Type venlafaxine 150 mg tablet,extended 150 mg PO QAM 10/30/20 01/11/25 History release 24 hr sennosides 8.6 mg tablet (senna) 8.6 mg PO HS 09/26/21 01/11/25 History levetiracetam 500 mg tablet 1,000 mg (2 x 500 mg) PO BID 90 12/04/22 01/11/25 Rx days #360 tabs clobazam 10 mg tablet (Onfi) 10 mg PO HS 30 days #30 tabs 11/19/23 01/11/25 Rx acetaminophen 325 mg tablet 325 mg PO Q4 PRN Pain 11/13/24 01/11/25 History fluticasone propionate 50 1 spray intranasal BID 11/13/24 01/11/25 History mcg/actuation nasal spray,suspension loratadine 10 mg tablet 10 mg PO DAILY 11/13/24 01/11/25 History levothyroxine 137 mcg tablet 112 mcg PO DAILYBB 12/16/24 01/11/25 History cholecalciferol (vitamin D3) 25 25 mcg PO DAILY 01/11/25 01/11/25 History mcg (1,000 unit) tablet (Vitamin D3) cyanocobalamin (vitamin B-12) 1,000 mcg IM WK 01/11/25 01/11/25 History 1,000 mcg/mL injection solution dutasteride 0.5 mg capsule 0.5 mg PO QAM 01/11/25 01/11/25 History fluticasone propionate 50 1 spray intranasal BID PRN 01/11/25 01/11/25 History mcg/actuation nasal rhinorrhea spray,suspension folic acid 1 mg tablet 1 mg PO DAILY 01/11/25 01/11/25 History pyridoxine (vitamin B6) 100 mg 100 mg PO DAILY 01/11/25 01/11/25 History tablet (Vitamin B-6) sennosides 8.6 mg-docusate sodium 2 tab-cap PO BID 01/11/25 01/11/25 History 50 mg tablet (Senexon-S) Patient History Medical History Pituitary adenoma Anxiety Major neurocognitive disorder Moderate obstructive sleep apnea Incomplete emptying of bladder Hyperglycemia Frequency-urgency syndrome Nocturia Partial epilepsy, with intractable epilepsy, poorly controlled Partial epilepsy without impairment of consciousness Fatigue Pituitary abnormality Nocturnal hypoxemia Oligodendroglioma Laryngopharyngeal reflux Impotence, organic Eczema H/O brain tumor Left arm weakness Left hemiparesis Oligodendroglioma History of radiation therapy History of chemotherapy Fatigue Surgical History H/O colonoscopy (~2016) H/O hernia repair H/O brain surgery (~2006) Family History Sister Cancer Liver cancer Mother Cancer Bladder cancer Family/Other Ulcerative colitis Allergic rhinitis Social History Smoking Status: Never smoker Tobacco Type: Cigarettes Second Hand Exposure: No; Do You Dip or Chew Tobacco: No; Hx Alcohol Use: No Hx Substance Use: No Preferred Language: [place] Communication Ability: Effective 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 Physical Exam Could not be performed as the visit was conducted via TeleMed. Results & Data Vital Signs (Past 12 Hours) Vital Signs Temp Pulse Pulse Resp BP BP Pulse Ox 01/13/25 12:12 36.7 C 62 16 150/87 H 96 01/13/25 08:00 37.1 C 90 16 138/90 94 01/13/25 07:54 92 H 01/13/25 03:24 36.5 C 108 H 18 170/98 H 93 O2 Del Method 01/13/25 12:12 Room Air 01/13/25 08:00 Room Air 01/13/25 07:54 01/13/25 03:24 Room Air Laboratory Results Microbiology: 01/11: / bottles of blood culture growing staph aureus identified via PCR as MSSA 01/11: Urine culture growing staph aureus Diagnostic Findings CT chest/abdomen/pelvis on 01/11/2025: 1. When compared to 12/27/2024, no new acute traumatic findings. 2. Redemonstrated fractures of left ribs - as detailed above. 3. Small left pleural effusion, bibasilar atelectasis, both increased from prior. 4. No acute pathologies in the abdomen or pelvis
--- NOTE | 2025-01-13 17:21 | Hospitalist Progress Note ---
Date of Service January 13, 2025 Assessment & Plan (1) Severe sepsis: Plan: Assessment and plan below following discussion of case with ED provider and reviewing patient history/pertinent normal/abnormal diagnostic test results. Severe sepsis Metabolic Encephalopathy MSSA UTI -mentation improved -ID consulted, appreciate recs -switch to cefazolin monotherapy at this time -check echo, repeat blood cultures ordered -discussed personally with pharmacy Abnormal CT chest finding There is coronary artery atherosclerosis. 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, patient follows with [facility] Endocrinology, stable tumor measurement on MRI as per outpatient note from last visit in 2023 oligodendroglioma status post surgery/chemoradiation, stable disease, patient follows with [facility] acromegaly central hypothyroidism, patient euthyroid DM 2 diet-controlled, documented on outpatient Endo notes, patient unaware of diagnosis, hemoglobin A1c of 6.3 last year chronic anemia, hemoglobin at baseline Recurrent falls secondary to ambulatory dysfunction, recent traumatic rib fractures/hemothorax/retroperitoneal hemorrhage, patient [facility] assisted living facility may not be appropriate for his disability. I spent a total of 50 minutes in direct patient care, including [id number] time with the patient and/or family, reviewing medical records, ordering and reviewing diagnostic tests, and coordinating care with other healthcare providers. This time includes: history taking, physical examination, medical decision making, counseling, ECG interpretation, imaging interpretation, lab interpretation, orders, and education, excluding time spent in the performance of separately billed services. Admission and Anticipated Discharge Date Admission Date: January 11, 2025 Subjective Patient seen and examined at bedside. Doing better today with mentation, states he is tired, alert and orriented at this time. Review of Systems Review of Systems: CONSTITUTIONAL: fatigue, weakness EYES: Patient denies any visual symptoms. EARS, NOSE, AND THROAT: No difficulties with hearing. No symptoms of rhinitis or sore throat. CARDIOVASCULAR: Patient denies chest pains, palpitations, orthopnea and paroxysmal nocturnal dyspnea. RESPIRATORY: No dyspnea on exertion, no wheezing or cough. GI: No nausea, vomiting, diarrhea, constipation, abdominal pain, hematochezia or melena. : No urinary hesitancy or dribbling. No nocturia or urinary frequency. No abnormal urethral discharge. MUSCULOSKELETAL: No myalgias or arthralgias. NEUROLOGIC: No chronic headaches, no seizures. Patient denies numbness, tingling or weakness. PSYCHIATRIC: Patient denies problems with mood disturbance. No problems with anxiety. ENDOCRINE: No excessive urination or excessive thirst. DERMATOLOGIC: Patient denies any rashes or skin changes. Physical Exam Physical Exam: Gen: A&O 3 NAD, slightly cold extremities HEENT: NCAT, EOMI, not icteric. External ears normal. No rhinorrhea. Moist mucous membranes. Neck: Supple, full range of motion, no observable masses, No meningeal sign. Lungs: dimished lung sounds left lung CV: RRR, no edema. Abdomen: Soft, nondistended, No rebound tenderness. MSK: No joint swelling, no redness. Skin: No rashes, petechiae, lesions. Normal color per patient. Neuro: Normal Gait, Grossly intact. Psych: Appropriate for situation, flat affect Results & Data Results & Data Vital Signs (Past 12 Hours) Vital Signs Temp Pulse Pulse Resp BP Pulse Ox O2 Del Method 01/13/25 14:52 37.2 C 85 16 136/81 97 Room Air 01/13/25 12:12 36.7 C 62 16 150/87 H 96 Room Air 01/13/25 08:00 37.1 C 90 16 138/90 94 Room Air 01/13/25 07:54 92 H Medications Administered Acetaminophen (Acetaminophen 325 Mg Tab) 650 mg PO QID PRN PRN Reason: pain/fever Stop: 02/11/25 01:13 Last Admin: 01/13/25 09:00 Dose: 650 mg Documented By: Admin: 01/13/25 03:41 Dose: 650 mg Documented By: melina Admin: 01/12/25 21:34 Dose: 650 mg Documented By: melina Admin: 01/12/25 09:38 Dose: 650 mg Documented By: Admin: 01/12/25 06:00 Dose: 650 mg Documented By: melina Clobazam (Clobazam 10 Mg Tab) 10 mg PO HS [facility] Stop: 02/11/25 20:59 Last Admin: 01/12/25 21:35 Dose: 10 mg Documented By: melina Finasteride (Finasteride 5 Mg Tab) 5 mg PO QAM JAMES Stop: 02/11/25 08:59 Last Admin: 01/13/25 09:02 Dose: 5 mg Documented By: Admin: 01/12/25 10:08 Dose: 5 mg Documented By: MARSHALL Fluticasone Propionate (Fluticasone Propionate Na Spr 16 Gm Btl) 1 sprays NA BID JAMES Stop: 02/11/25 08:59 Last Admin: 01/13/25 09:02 Dose: 1 sprays Documented By: Admin: 01/12/25 21:34 Dose: 1 sprays Documented By: melina Admin: 01/12/25 10:08 Dose: 1 sprays Documented By: MARSHALL Folic Acid (Folic Acid 1 Mg Tab) 1 mg PO DAILY JAMES Stop: 02/11/25 08:59 Last Admin: 01/13/25 09:01 Dose: 1 mg Documented By: Admin: 01/12/25 10:07 Dose: 1 mg Documented By: MARSHALL Insulin Aspart (Insulin Aspart Per Unit Charge) 0 units SC ACHS JAMES Stop: 02/11/25 02:45 Last Admin: 01/13/25 13:53 Dose: 2 units Documented By: MARSHALL Co-signed By: ERIN Admin: 01/13/25 08:58 Dose: 3 units Documented By: MARSHALL Co-signed By: ASHU Admin: 01/12/25 21:35 Dose: Not Given Documented By: melina Co-signed By: TARAN Admin: 01/12/25 18:31 Dose: Not Given Documented By: Admin: 01/12/25 13:42 Dose: 5 units Documented By: MARSHALL Co-signed By: IVETTE Admin: 01/12/25 09:39 Dose: 3 units Documented By: MARSHALL Co-signed By: IVETTE Admin: 01/12/25 03:30 Dose: Not Given Documented By: BONILLA Co-signed By: melina Levetiracetam (Levetiracetam 500 Mg Tab) 1,000 mg PO BID JAMES Stop: 02/11/25 08:59 Last Admin: 01/13/25 09:01 Dose: 1,000 mg Documented By: Admin: 01/12/25 21:33 Dose: 1,000 mg Documented By: melina Admin: 01/12/25 10:05 Dose: 1,000 mg Documented By: MARSHALL Levothyroxine Sodium (Levothyroxine Sodium 112 Mcg Tablet) 112 mcg PO DAILYBB JAMES Stop: 02/11/25 06:29 Last Admin: 01/13/25 05:52 Dose: 112 mcg Documented By: melina Admin: 01/12/25 05:54 Dose: 112 mcg Documented By: melina Melatonin (Melatonin 3 Mg Tab) 3 mg PO HS PRN PRN Reason: Sleep Stop: 02/11/25 22:39 Last Admin: 01/12/25 23:18 Dose: 3 mg Documented By: TARAN Oxycodone HCl (Oxycodone Hcl Ir 5 Mg Tab (Immediate Release)) 5 mg PO Q4H PRN PRN Reason: Pain Stop: 01/26/25 01:13 Last Admin: 01/12/25 16:53 Dose: 5 mg Documented By: MARSHALL Senna/Docusate Sodium (Docusate Sodium/Senna 50/8.6mg Tab) 2 tab PO BID JAMES Stop: 02/11/25 08:59 Last Admin: 01/13/25 09:23 Dose: 2 tab Documented By: Admin: 01/12/25 21:33 Dose: 2 tab Documented By: melina Admin: 01/12/25 10:06 Dose: 2 tab Documented By: MARSHALL Sennosides (Senna 8.6 Mg Tab) 8.6 mg PO HS JAMES Stop: 02/11/25 20:59 Last Admin: 01/12/25 21:44 Dose: 8.6 mg Documented By: melina Venlafaxine HCl (Venlafaxine Hcl Xr 150 Mg Capxr) 150 mg PO QAM JAMES Stop: 02/11/25 08:59 Last Admin: 01/13/25 09:01 Dose: 150 mg Documented By: Admin: 01/12/25 10:06 Dose: 150 mg Documented By: MARSHALL Vitamin D (Cholecalciferol 25 Mcg (1000 Units) Tab) 25 mcg PO DAILY JAMES Stop: 02/11/25 08:59 Last Admin: 01/13/25 09:01 Dose: 25 mcg Documented By: Admin: 01/12/25 10:07 Dose: 25 mcg Documented By: MARSHALL
[2025-01-14 06:13] LABS: Hematocrit (blood only) 34.9 % (42.0-52.0); Hemoglobin 11.2 g/dl (14.0-18.0); Mean Corpuscular Hemoglobin 28.0 pg (25.0-34.0); Mean Corpuscular Volume 87.3 fL (80.0-100.0); Platelet Count 401 K/uL (130-400); RDW Standard Deviation 42.6 fL (36.4-46.3); Red Blood Count 4.00 M/uL (4.70-6.10); White Blood Count 15.46 K/ul (4.8-10.8)
[2025-01-14 06:35] LABS: Anion Gap 9.0 (3-11); Blood Urea Nitrogen 24.0 mg/dl (6-23); Calcium 8.7 mg/dl (8.6-10.3); Carbon Dioxide 22.0 mmol/L (21-32); Chloride 102.0 mmol/L (98-107); Creatinine Clr Calc Pharmacy 79.1 ml/min; Glucose 112.0 mg/dl (70-99(Fasting)); Potassium 4.0 mmol/L (3.5-5.1); Sodium 133.0 mmol/L (136-145)
--- NOTE | 2025-01-14 13:08 | Hospitalist Progress Note ---
Date of Service January 14, 2025 Assessment & Plan (1) Severe sepsis: Plan: Assessment and plan below following discussion of case with ED provider and reviewing patient history/pertinent normal/abnormal diagnostic test results. Severe sepsis Metabolic Encephalopathy MSSA UTI -mentation improved -ID consulted, appreciate recs -switch to cefazolin monotherapy at this time -check echo, repeat blood cultures ordered -discussed personally with pharmacy -PT/OT recommending SNF Abnormal CT chest finding There is coronary artery atherosclerosis. 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, patient follows with [facility] Endocrinology, stable tumor measurement on MRI as per outpatient note from last visit in 2023 oligodendroglioma status post surgery/chemoradiation, stable disease, patient follows with [facility] Neurosurgery and Oncology acromegaly central hypothyroidism, patient euthyroid DM 2 diet-controlled, documented on outpatient Endo notes, patient unaware of diagnosis, hemoglobin A1c of 6.3 last year chronic anemia, hemoglobin at baseline Recurrent falls secondary to ambulatory dysfunction, recent traumatic rib fractures/hemothorax/retroperitoneal hemorrhage, patient [facility] assisted living facility may not be appropriate for his disability. I spent a total of 40 minutes in direct patient care, including [id number] time with the patient and/or family, reviewing medical records, ordering and reviewing diagnostic tests, and coordinating care with other healthcare providers. This time includes: history taking, physical examination, medical decision making, counseling, ECG interpretation, imaging interpretation, lab interpretation, orders, and education, excluding time spent in the performance of separately billed services. Admission and Anticipated Discharge Date Admission Date: January 11, 2025 Subjective Patient seen and examined at bedside. Patient doing well today, feeling better overall. Review of Systems Review of Systems: CONSTITUTIONAL: fatigue, weakness EYES: Patient denies any visual symptoms. EARS, NOSE, AND THROAT: No difficulties with hearing. No symptoms of rhinitis or sore throat. CARDIOVASCULAR: Patient denies chest pains, palpitations, orthopnea and paroxysmal nocturnal dyspnea. RESPIRATORY: No dyspnea on exertion, no wheezing or cough. GI: No nausea, vomiting, diarrhea, constipation, abdominal pain, hematochezia or melena. : No urinary hesitancy or dribbling. No nocturia or urinary frequency. No abnormal urethral discharge. MUSCULOSKELETAL: No myalgias or arthralgias. NEUROLOGIC: No chronic headaches, no seizures. Patient denies numbness, tingling or weakness. PSYCHIATRIC: Patient denies problems with mood disturbance. No problems with anxiety. ENDOCRINE: No excessive urination or excessive thirst. DERMATOLOGIC: Patient denies any rashes or skin changes. Physical Exam Physical Exam: Gen: A&O 3 NAD, slightly cold extremities HEENT: NCAT, EOMI, not icteric. External ears normal. No rhinorrhea. Moist mucous membranes. Neck: Supple, full range of motion, no observable masses, No meningeal sign. Lungs: dimished lung sounds left lung CV: RRR, no edema. Abdomen: Soft, nondistended, No rebound tenderness. MSK: No joint swelling, no redness. Skin: No rashes, petechiae, lesions. Normal color per patient. Neuro: Normal Gait, Grossly intact. Psych: Appropriate for situation, flat affect Results & Data Results & Data Vital Signs (Past 12 Hours) Vital Signs Temp Pulse Pulse Resp BP BP Pulse Ox 01/14/25 12:06 01/14/25 11:41 36.7 C 89 18 146/93 H 96 01/14/25 07:54 37.1 C 86 18 166/100 H 168/109 H 94 01/14/25 07:41 87 01/14/25 03:45 36.7 C 91 H 16 152/92 H 95 O2 Del Method 01/14/25 12:06 Room Air 01/14/25 11:41 Room Air 01/14/25 07:54 Room Air 01/14/25 07:41 01/14/25 03:45 Room Air Laboratory Results -personally reviewed, leukocytosis downtrending, creatinine at baseline, Medications Administered Acetaminophen (Acetaminophen 325 Mg Tab) 650 mg PO QID PRN PRN Reason: pain/fever Stop: 02/11/25 01:13 Last Admin: 01/14/25 03:52 Dose: 650 mg Documented By: Admin: 01/13/25 20:38 Dose: 650 mg Documented By: melina Admin: 01/13/25 09:00 Dose: 650 mg Documented By: Admin: 01/13/25 03:41 Dose: 650 mg Documented By: melina Admin: 01/12/25 21:34 Dose: 650 mg Documented By: melina Admin: 01/12/25 09:38 Dose: 650 mg Documented By: Admin: 01/12/25 06:00 Dose: 650 mg Documented By: melina Clobazam (Clobazam 10 Mg Tab) 10 mg PO HS JAMES Stop: 02/11/25 20:59 Last Admin: 01/13/25 20:38 Dose: 10 mg Documented By: melina Admin: 01/12/25 21:35 Dose: 10 mg Documented By: melina Finasteride (Finasteride 5 Mg Tab) 5 mg PO QAM JAMES Stop: 02/11/25 08:59 Last Admin: 01/14/25 08:42 Dose: 5 mg Documented By: Admin: 01/13/25 09:02 Dose: 5 mg Documented By: Admin: 01/12/25 10:08 Dose: 5 mg Documented By: MARSHALL Fluticasone Propionate (Fluticasone Propionate Na Spr 16 Gm Btl) 1 sprays NA BID JAMES Stop: 02/11/25 08:59 Last Admin: 01/14/25 08:43 Dose: 1 sprays Documented By: Admin: 01/13/25 20:38 Dose: 1 sprays Documented By: melina Admin: 01/13/25 09:02 Dose: 1 sprays Documented By: Admin: 01/12/25 21:34 Dose: 1 sprays Documented By: melina Admin: 01/12/25 10:08 Dose: 1 sprays Documented By: MARSHALL Folic Acid (Folic Acid 1 Mg Tab) 1 mg PO DAILY JAMES Stop: 02/11/25 08:59 Last Admin: 01/14/25 08:42 Dose: 1 mg Documented By: Admin: 01/13/25 09:01 Dose: 1 mg Documented By: Admin: 01/12/25 10:07 Dose: 1 mg Documented By: MARSHALL Cefazolin Sodium (Ancef 2000mg) 2,000 mg in 15 mls @ 3.75 mls/min IV Q8H JAMES; Protocol Stop: 01/27/25 16:59 Last Admin: 01/14/25 08:47 Dose: 3.75 mls/min Documented By: Admin: 01/14/25 00:19 Dose: 3.75 mls/min Documented By: melina Admin: 01/13/25 18:09 Dose: 3.75 mls/min Documented By: MARSHALL Insulin Aspart (Insulin Aspart Per Unit Charge) 0 units SC ACHS JAMES Stop: 02/11/25 02:45 Last Admin: 01/14/25 08:47 Dose: 3 units Documented By: BOO Co-signed By: PADMINI Admin: 01/13/25 20:38 Dose: Not Given Documented By: melina Co-signed By: TARAN Admin: 01/13/25 18:09 Dose: 2 units Documented By: MARSHALL Co-signed By: ERIN Admin: 01/13/25 13:53 Dose: 2 units Documented By: MARSHALL Co-signed By: ERIN Admin: 01/13/25 08:58 Dose: 3 units Documented By: MARSHALL Co-signed By: ASHU Admin: 01/12/25 21:35 Dose: Not Given Documented By: melina Co-signed By: TARAN Admin: 01/12/25 18:31 Dose: Not Given Documented By: Admin: 01/12/25 13:42 Dose: 5 units Documented By: MARSHALL Co-signed By: IVETTE Admin: 01/12/25 09:39 Dose: 3 units Documented By: MARSHALL Co-signed By: IVETTE Admin: 01/12/25 03:30 Dose: Not Given Documented By: BONILLA Co-signed By: melina Levetiracetam (Levetiracetam 500 Mg Tab) 1,000 mg PO BID [facility] Stop: 02/11/25 08:59 Last Admin: 01/14/25 08:42 Dose: 1,000 mg Documented By: Admin: 01/13/25 20:37 Dose: 1,000 mg Documented By: melian Admin: 01/13/25 09:01 Dose: 1,000 mg Documented By: Admin: 01/12/25 21:33 Dose: 1,000 mg Documented By: melina Admin: 01/12/25 10:05 Dose: 1,000 mg Documented By: MARSHALL Levothyroxine Sodium (Levothyroxine Sodium 112 Mcg Tablet) 112 mcg PO DAILYBB [facility] Stop: 02/11/25 06:29 Last Admin: 01/14/25 06:36 Dose: 112 mcg Documented By: melina Admin: 01/13/25 05:52 Dose: 112 mcg Documented By: melina Admin: 01/12/25 05:54 Dose: 112 mcg Documented By: melina Melatonin (Melatonin 3 Mg Tab) 3 mg PO HS PRN PRN Reason: Sleep Stop: 02/11/25 22:39 Last Admin: 01/13/25 20:37 Dose: 3 mg Documented By: melina Admin: 01/12/25 23:18 Dose: 3 mg Documented By: TARAN Oxycodone HCl (Oxycodone Hcl Ir 5 Mg Tab (Immediate Release)) 5 mg PO Q4H PRN PRN Reason: Pain Stop: 01/26/25 01:13 Last Admin: 01/13/25 23:44 Dose: 5 mg Documented By: melina Admin: 01/12/25 16:53 Dose: 5 mg Documented By: MARSHALL Senna/Docusate Sodium (Docusate Sodium/Senna 50/8.6mg Tab) 2 tab PO BID JAMES Stop: 02/11/25 08:59 Last Admin: 01/14/25 08:41 Dose: 2 tab Documented By: Admin: 01/13/25 20:37 Dose: 2 tab Documented By: melina Admin: 01/13/25 09:23 Dose: 2 tab Documented By: Admin: 01/12/25 21:33 Dose: 2 tab Documented By: melina Admin: 01/12/25 10:06 Dose: 2 tab Documented By: MARSHALL Sennosides (Senna 8.6 Mg Tab) 8.6 mg PO HS JAMES Stop: 02/11/25 20:59 Last Admin: 01/13/25 20:38 Dose: 8.6 mg Documented By: melina Admin: 01/12/25 21:44 Dose: 8.6 mg Documented By: melina Venlafaxine HCl (Venlafaxine Hcl Xr 150 Mg Capxr) 150 mg PO QAM JAMES Stop: 02/11/25 08:59 Last Admin: 01/14/25 08:42 Dose: 150 mg Documented By: Admin: 01/13/25 09:01 Dose: 150 mg Documented By: Admin: 01/12/25 10:06 Dose: 150 mg Documented By: MARSHALL Vitamin D (Cholecalciferol 25 Mcg (1000 Units) Tab) 25 mcg PO DAILY JAMES Stop: 02/11/25 08:59 Last Admin: 01/14/25 08:42 Dose: 25 mcg Documented By: Admin: 01/13/25 09:01 Dose: 25 mcg Documented By: Admin: 01/12/25 10:07 Dose: 25 mcg Documented By: ASA
[2025-01-14] MEDS: PERFLUTREN LIPID MICROSPHERE (DEFINITY) IV ONE (15:44)
--- NOTE | 2025-01-14 20:18 | Electrocardiogram Report ---
Test Reason : Blood Pressure : */* mmHG Vent. Rate : 113 BPM Atrial Rate : 113 BPM P-R Int : 134 ms QRS Dur : 86 ms QT Int : 324 ms P-R-T Axes : -17 -15 -35 degrees QTcB Int : 444 ms Sinus tachycardia Inferior infarct , age undetermined Nonspecific ST abnormality Abnormal ECG When compared with ECG of 27-Dec-2024 11:27, Vent. rate has increased by 46 bpm Inferior infarct is now Present Confirmed by Ino Guallpa ([id number]) on 01/14/2025 8:17:34 PM [facility] Confirmed By: Ino Guallpa
--- NOTE | 2025-01-14 20:18 | Electrocardiogram Report ---
Test Reason : Blood Pressure : */* mmHG Vent. Rate : 82 BPM Atrial Rate : 82 BPM P-R Int : 138 ms QRS Dur : 88 ms QT Int : 368 ms P-R-T Axes : 61 11 49 degrees QTcB Int : 429 ms Normal sinus rhythm Nonspecific ST abnormality When compared with ECG of 11-Jan-2025 21:22, Criteria for Inferior infarct are no longer Present Confirmed by nIo Guallpa ([id number]) on 01/14/2025 8:17:50 PM [facility] Confirmed By: Ino Guallpa
[2025-01-15] MEDS: LABETALOL HCL IV 5 MG/ML 20ML IV STA ×2 (00:15→05:35)
[2025-01-15 07:14] LABS: Hematocrit (blood only) 32.3 % (42.0-52.0); Hemoglobin 11.0 g/dl (14.0-18.0); Mean Corpuscular Hemoglobin 29.3 pg (25.0-34.0); Mean Corpuscular Volume 86.1 fL (80.0-100.0); Platelet Count 440 K/uL (130-400); RDW Standard Deviation 41.4 fL (36.4-46.3); Red Blood Count 3.75 M/uL (4.70-6.10); White Blood Count 14.37 K/ul (4.8-10.8)
[2025-01-15 07:35] LABS: Anion Gap 8.0 (3-11); Blood Urea Nitrogen 22.0 mg/dl (6-23); Calcium 8.5 mg/dl (8.6-10.3); Carbon Dioxide 24.0 mmol/L (21-32); Chloride 101.0 mmol/L (98-107); Creatinine Clr Calc Pharmacy 84.6 ml/min; Glucose 117.0 mg/dl (70-99(Fasting)); Potassium 3.9 mmol/L (3.5-5.1); Sodium 133.0 mmol/L (136-145)
--- NOTE | 2025-01-15 13:19 | Hospitalist Progress Note ---
Date of Service January 15, 2025 Assessment & Plan (1) Severe sepsis: Plan: Assessment and plan below following discussion of case with ED provider and reviewing patient history/pertinent normal/abnormal diagnostic test results. Severe sepsis Metabolic Encephalopathy MSSA UTI -mentation improved -ID consulted, appreciate recs -continue cefazolin x7-10 days -repeat blood cultures ordered -PT/OT recommending SNF, medically ready for discharge at this time Abnormal CT chest finding There is coronary artery atherosclerosis. 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, patient follows with [facility] Endocrinology, stable tumor measurement on MRI as per outpatient note from last visit in 2023 oligodendroglioma status post surgery/chemoradiation, stable disease, patient follows with [facility] Neurosurgery and Oncology acromegaly central hypothyroidism, patient euthyroid DM 2 diet-controlled, documented on outpatient Endo notes, patient unaware of diagnosis, hemoglobin A1c of 6.3 last year chronic anemia, hemoglobin at baseline Recurrent falls secondary to ambulatory dysfunction, recent traumatic rib fractures/hemothorax/retroperitoneal hemorrhage, patient [facility] assisted living facility may not be appropriate for his disability. I spent a total of 35 minutes in direct patient care, including [id number] time with the patient and/or family, reviewing medical records, ordering and reviewing diagnostic tests, and coordinating care with other healthcare providers. This time includes: history taking, physical examination, medical decision making, counseling, ECG interpretation, imaging interpretation, lab interpretation, orders, and education, excluding time spent in the performance of separately billed services. Admission and Anticipated Discharge Date Admission Date: January 11, 2025 Subjective Patient seen and examined at bedside. Patient doing well today. Discussed plan with patients friend at bedside (with permission), who was appreciative of the update yesterday. Review of Systems Review of Systems: CONSTITUTIONAL: fatigue, weakness, improving EYES: Patient denies any visual symptoms. EARS, NOSE, AND THROAT: No difficulties with hearing. No symptoms of rhinitis or sore throat. CARDIOVASCULAR: Patient denies chest pains, palpitations, orthopnea and paroxysmal nocturnal dyspnea. RESPIRATORY: No dyspnea on exertion, no wheezing or cough. GI: No nausea, vomiting, diarrhea, constipation, abdominal pain, hematochezia or melena. : No urinary hesitancy or dribbling. No nocturia or urinary frequency. No a bnormal urethral discharge. MUSCULOSKELETAL: No myalgias or arthralgias. NEUROLOGIC: No chronic headaches, no seizures. Patient denies numbness, tingling or weakness. PSYCHIATRIC: Patient denies problems with mood disturbance. No problems with anxiety. ENDOCRINE: No excessive urination or excessive thirst. DERMATOLOGIC: Patient denies any rashes or skin changes. Physical Exam Physical Exam: Gen: A&O 3 NAD HEENT: NCAT, EOMI, not icteric. External ears normal. No rhinorrhea. Moist mucous membranes. Neck: Supple, full range of motion, no observable masses, No meningeal sign. Lungs: dimished lung sounds left lung CV: RRR, no edema. Abdomen: Soft, nondistended, No rebound tenderness. MSK: No joint swelling, no redness. Skin: No rashes, petechiae, lesions. Normal color per patient. Neuro: Normal Gait, Grossly intact. Psych: Appropriate for situation, flat affect Results & Data Results & Data Vital Signs (Past 12 Hours) Vital Signs Temp Pulse Pulse Resp BP BP BP 01/15/25 11:31 37 C 84 18 138/88 01/15/25 09:37 01/15/25 07:48 36.8 C 79 18 160/95 H 01/15/25 07:11 88 01/15/25 05:50 89 159/92 H 01/15/25 05:35 88 165/109 H 01/15/25 04:23 37.0 C 88 20 165/109 H Pulse Ox O2 Del Method 01/15/25 11:31 92 Room Air 01/15/25 09:37 Room Air 01/15/25 07:48 94 Room Air 01/15/25 07:11 01/15/25 05:50 01/15/25 05:35 01/15/25 04:23 93 Room Air Laboratory Results -personally reviewed, WBC downtrending, Hgb stable, creatinine stable Medications Administered Acetaminophen (Acetaminophen 325 Mg Tab) 650 mg PO QID PRN PRN Reason: pain/fever Stop: 02/11/25 01:13 Last Admin: 01/15/25 12:55 Dose: 650 mg Documented By: ailyn Admin: 01/15/25 04:10 Dose: 650 mg Documented By: Admin: 01/14/25 03:52 Dose: 650 mg Documented By: Admin: 01/13/25 20:38 Dose: 650 mg Documented By: melina Admin: 01/13/25 09:00 Dose: 650 mg Documented By: Admin: 01/13/25 03:41 Dose: 650 mg Documented By: melina Admin: 01/12/25 21:34 Dose: 650 mg Documented By: melina Admin: 01/12/25 09:38 Dose: 650 mg Documented By: Admin: 01/12/25 06:00 Dose: 650 mg Documented By: melina Clobazam (Clobazam 10 Mg Tab) 10 mg PO HS JAEMS Stop: 02/11/25 20:59 Last Admin: 01/14/25 21:00 Dose: 10 mg Documented By: Admin: 01/13/25 20:38 Dose: 10 mg Documented By: melina Admin: 01/12/25 21:35 Dose: 10 mg Documented By: melina Finasteride (Finasteride 5 Mg Tab) 5 mg PO QAM JAMES Stop: 02/11/25 08:59 Last Admin: 01/15/25 07:27 Dose: 5 mg Documented By: Admin: 01/14/25 08:42 Dose: 5 mg Documented By: Admin: 01/13/25 09:02 Dose: 5 mg Documented By: Admin: 01/12/25 10:08 Dose: 5 mg Documented By: MARSHALL Fluticasone Propionate (Fluticasone Propionate Na Spr 16 Gm Btl) 1 sprays NA BID JAMES Stop: 02/11/25 08:59 Last Admin: 01/15/25 07:28 Dose: 1 sprays Documented By: Admin: 01/14/25 21:01 Dose: 1 sprays Documented By: Admin: 01/14/25 08:43 Dose: 1 sprays Documented By: Admin: 01/13/25 20:38 Dose: 1 sprays Documented By: melina Admin: 01/13/25 09:02 Dose: 1 sprays Documented By: Admin: 01/12/25 21:34 Dose: 1 sprays Documented By: melina Admin: 01/12/25 10:08 Dose: 1 sprays Documented By: MARSHALL Folic Acid (Folic Acid 1 Mg Tab) 1 mg PO DAILY JAMES Stop: 02/11/25 08:59 Last Admin: 01/15/25 07:28 Dose: 1 mg Documented By: Admin: 01/14/25 08:42 Dose: 1 mg Documented By: Admin: 01/13/25 09:01 Dose: 1 mg Documented By: Admin: 01/12/25 10:07 Dose: 1 mg Documented By: MARSHALL Cefazolin Sodium (Ancef 2000mg) 2,000 mg in 15 mls @ 3.75 mls/min IV Q8H JAMES; Protocol Stop: 01/27/25 16:59 Last Admin: 01/15/25 07:31 Dose: 3.75 mls/min Documented By: Admin: 01/15/25 00:17 Dose: 3.75 mls/min Documented By: Admin: 01/14/25 16:50 Dose: 3.75 mls/min Documented By: Admin: 01/14/25 08:47 Dose: 3.75 mls/min Documented By: Admin: 01/14/25 00:19 Dose: 3.75 mls/min Documented By: melina Admin: 01/13/25 18:09 Dose: 3.75 mls/min Documented By: MARSHALL Insulin Aspart (Insulin Aspart Per Unit Charge) 0 units SC ACHS JAMES Stop: 02/11/25 02:45 Last Admin: 01/15/25 12:54 Dose: 1 units Documented By: ailyn Co-signed By: BINTA Admin: 01/15/25 08:47 Dose: 3 units Documented By: ailyn Co-signed By: BINTA Admin: 01/14/25 21:13 Dose: 1 units Documented By: CHUCK Co-signed By: Juni Admin: 01/14/25 17:31 Dose: 5 units Documented By: BOO Co-signed By: PADMINI Admin: 01/14/25 13:32 Dose: Not Given Documented By: Admin: 01/14/25 08:47 Dose: 3 units Documented By: BOO Co-signed By: PADMINI Admin: 01/13/25 20:38 Dose: Not Given Documented By: melina Co-signed By: TARAN Admin: 01/13/25 18:09 Dose: 2 units Documented By: MARSHALL Co-signed By: DTT Admin: 01/13/25 13:53 Dose: 2 units Documented By: MARSHALL Co-signed By: ERIN Admin: 01/13/25 08:58 Dose: 3 units Documented By: MARSHALL Co-signed By: ASHU Admin: 01/12/25 21:35 Dose: Not Given Documented By: melina Co-signed By: TARAN Admin: 01/12/25 18:31 Dose: Not Given Documented By: Admin: 01/12/25 13:42 Dose: 5 units Documented By: MARSHALL Co-signed By: IVETTE Admin: 01/12/25 09:39 Dose: 3 units Documented By: MARSHALL Co-signed By: IVETTE Admin: 01/12/25 03:30 Dose: Not Given Documented By: BONILLA Co-signed By: melina Levetiracetam (Levetiracetam 500 Mg Tab) 1,000 mg PO BID JAMES Stop: 02/11/25 08:59 Last Admin: 01/15/25 07:27 Dose: 1,000 mg Documented By: Admin: 01/14/25 21:01 Dose: 1,000 mg Documented By: Admin: 01/14/25 08:42 Dose: 1,000 mg Documented By: Admin: 01/13/25 20:37 Dose: 1,000 mg Documented By: melina Admin: 01/13/25 09:01 Dose: 1,000 mg Documented By: Admin: 01/12/25 21:33 Dose: 1,000 mg Documented By: melina Admin: 01/12/25 10:05 Dose: 1,000 mg Documented By: MARSHALL Levothyroxine Sodium (Levothyroxine Sodium 112 Mcg Tablet) 112 mcg PO DAILYBB JAMES Stop: 02/11/25 06:29 Last Admin: 01/15/25 05:35 Dose: 112 mcg Documented By: Admin: 01/14/25 06:36 Dose: 112 mcg Documented By: melina Admin: 01/13/25 05:52 Dose: 112 mcg Documented By: melina Admin: 01/12/25 05:54 Dose: 112 mcg Documented By: melina Melatonin (Melatonin 3 Mg Tab) 3 mg PO HS PRN PRN Reason: Sleep Stop: 02/11/25 22:39 Last Admin: 01/14/25 21:00 Dose: 3 mg Documented By: Admin: 01/13/25 20:37 Dose: 3 mg Documented By: melina Admin: 01/12/25 23:18 Dose: 3 mg Documented By: TARAN Oxycodone HCl (Oxycodone Hcl Ir 5 Mg Tab (Immediate Release)) 5 mg PO Q4H PRN PRN Reason: Pain Stop: 01/26/25 01:13 Last Admin: 01/14/25 16:50 Dose: 5 mg Documented By: Admin: 01/13/25 23:44 Dose: 5 mg Documented By: melina Admin: 01/12/25 16:53 Dose: 5 mg Documented By: MARSHALL Senna/Docusate Sodium (Docusate Sodium/Senna 50/8.6mg Tab) 2 tab PO BID JAMES Stop: 02/11/25 08:59 Last Admin: 01/15/25 07:27 Dose: 2 tab Documented By: Admin: 01/14/25 21:00 Dose: 2 tab Documented By: Admin: 01/14/25 08:41 Dose: 2 tab Documented By: Admin: 01/13/25 20:37 Dose: 2 tab Documented By: melina Admin: 01/13/25 09:23 Dose: 2 tab Documented By: Admin: 01/12/25 21:33 Dose: 2 tab Documented By: melina Admin: 01/12/25 10:06 Dose: 2 tab Documented By: MARSHALL Sennosides (Senna 8.6 Mg Tab) 8.6 mg PO HS JAMES Stop: 02/11/25 20:59 Last Admin: 01/14/25 21:00 Dose: 8.6 mg Documented By: Admin: 01/13/25 20:38 Dose: 8.6 mg Documented By: melina Admin: 01/12/25 21:44 Dose: 8.6 mg Documented By: melina Venlafaxine HCl (Venlafaxine Hcl Xr 150 Mg Capxr) 150 mg PO QAM JAMES Stop: 02/11/25 08:59 Last Admin: 01/15/25 07:28 Dose: 150 mg Documented By: Admin: 01/14/25 08:42 Dose: 150 mg Documented By: Admin: 01/13/25 09:01 Dose: 150 mg Documented By: Admin: 01/12/25 10:06 Dose: 150 mg Documented By: MARSHALL Vitamin D (Cholecalciferol 25 Mcg (1000 Units) Tab) 25 mcg PO DAILY JAMES Stop: 02/11/25 08:59 Last Admin: 01/15/25 07:27 Dose: 25 mcg Documented By: Admin: 01/14/25 08:42 Dose: 25 mcg Documented By: Admin: 01/13/25 09:01 Dose: 25 mcg Documented By: Admin: 01/12/25 10:07 Dose: 25 mcg Documented By: MARSHALL
--- NOTE | 2025-01-15 18:19 | CT Scan Report ---
CT head without contrast History: Trauma Comparison: 01/11/2025 Technique: Using multidetector thin collimation helical acquisition technique, axial, coronal and sagittal CT images from the skull base to the vertex were obtained without intravenous contrast. Dose reduction techniques were achieved by using automatic exposure control and/or adjustment of mA and/or kV according to patient size and/or use of iterative reconstruction technique. Findings: No intracranial hemorrhage, mass-effect, or midline shift. The ventricles are proportionate to the cerebral sulci. The thompson to white matter differentiation of the cerebral hemispheres is preserved. The basal cisterns are patent. Stable craniotomy and resection changes at the right parietal lobe. There is moderate cerebral atrophy. Moderate, patchy low-attenuation changes in the white matter, most suggestive of sequelae of chronic small vessel ischemic disease. The visualized paranasal sinuses are clear. Mastoid air cells are clear. Impression: No acute intracranial pathology. Electronically signed by Arnulfo Leahy 01-15-2025 6:19 PM
[2025-01-16 06:40] LABS: Hematocrit (blood only) 34.6 % (42.0-52.0); Hemoglobin 11.0 g/dl (14.0-18.0); Mean Corpuscular Hemoglobin 28.0 pg (25.0-34.0); Mean Corpuscular Volume 88.0 fL (80.0-100.0); Platelet Count 442 K/uL (130-400); RDW Standard Deviation 42.7 fL (36.4-46.3); Red Blood Count 3.93 M/uL (4.70-6.10); White Blood Count 13.21 K/ul (4.8-10.8)
[2025-01-16 07:44] LABS: Anion Gap 10.0 (3-11); Blood Urea Nitrogen 20.0 mg/dl (6-23); Calcium 8.3 mg/dl (8.6-10.3); Carbon Dioxide 23.0 mmol/L (21-32); Chloride 102.0 mmol/L (98-107); Creatinine Clr Calc Pharmacy 73.3 ml/min; Glucose 155.0 mg/dl (70-99(Fasting)); Potassium 3.8 mmol/L (3.5-5.1); Sodium 135.0 mmol/L (136-145)
--- NOTE | 2025-01-16 13:41 | Hospitalist Progress Note ---
Date of Service January 16, 2025 Assessment & Plan (1) Severe sepsis: Plan: Assessment and plan below following discussion of case with ED provider and reviewing patient history/pertinent normal/abnormal diagnostic test results. Severe sepsis Metabolic Encephalopathy MSSA UTI -mentation improved -ID consulted, appreciate recs -continue cefazolin x7-10 days -repeat blood cultures ordered, negative so far -PT/OT recommending SNF, medically ready for discharge at this time Abnormal CT chest finding There is coronary artery atherosclerosis. 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, patient follows with [facility] Endocrinology, stable tumor measurement on MRI as per outpatient note from last visit in 2023 oligodendroglioma status post surgery/chemoradiation, stable disease, patient follows with [facility] acromegaly central hypothyroidism, patient euthyroid DM 2 diet-controlled, documented on outpatient Endo notes, patient unaware of diagnosis, hemoglobin A1c of 6.3 last year chronic anemia, hemoglobin at baseline Recurrent falls secondary to ambulatory dysfunction, recent traumatic rib fractures/hemothorax/retroperitoneal hemorrhage, patient [facility] a [facility] living facility may not be appropriate for his disability. I spent a total of 40 minutes in direct patient care, including [id number] time with the patient and/or family, reviewing medical records, ordering and reviewing diagnostic tests, and coordinating care with other healthcare providers. This time includes: history taking, physical examination, medical decision making, counseling, ECG interpretation, imaging interpretation, lab interpretation, orders, and education, excluding time spent in the performance of separately billed services. Admission and Anticipated Discharge Date Admission Date: January 11, 2025 Subjective Patient seen and examined at bedside. Patient doing well today, feels at his baseline. Review of Systems Review of Systems: CONSTITUTIONAL: fatigue, weakness, improving EYES: Patient denies any visual symptoms. EARS, NOSE, AND THROAT: No difficulties with hearing. No symptoms of rhinitis or sore throat. CARDIOVASCULAR: Patient denies chest pains, palpitations, orthopnea and paroxysmal nocturnal dyspnea. RESPIRATORY: No dyspnea on exertion, no wheezing or cough. GI: No nausea, vomiting, diarrhea, constipation, abdominal pain, hematochezia or melena. : No urinary hesitancy or dribbling. No nocturia or urinary frequency. No abnormal urethral discharge. MUSCULOSKELETAL: No myalgias or arthralgias. NEUROLOGIC: No chronic headaches, no seizures. Patient denies numbness, tingling or weakness. PSYCHIATRIC: Patient denies problems with mood disturbance. No problems with anxiety. ENDOCRINE: No excessive urination or excessive thirst. DERMATOLOGIC: Patient denies any rashes or skin changes. Physical Exam Physical Exam: Gen: A&O 3 NAD HEENT: NCAT, EOMI, not icteric. External ears normal. No rhinorrhea. Moist mucous membranes. Neck: Supple, full range of motion, no observable masses, No meningeal sign. Lungs: dimished lung sounds left lung CV: RRR, no edema. Abdomen: Soft, nondistended, No rebound tenderness. MSK: No joint swelling, no redness. Skin: No rashes, petechiae, lesions. Normal color per patient. Neuro: Normal Gait, Grossly intact. Psych: Appropriate for situation Results & Data Results & Data Vital Signs (Past 12 Hours) Vital Signs Temp Pulse Resp BP Pulse Ox O2 Del Method 01/16/25 08:46 36.9 C 70 16 149/83 H 93 Room Air Laboratory Results -personally reviewed, WBC downtrending, creatinine at baseline Medications Administered Acetaminophen (Acetaminophen 325 Mg Tab) 650 mg PO QID PRN PRN Reason: pain/fever Stop: 02/11/25 01:13 Last Admin: 01/16/25 05:59 Dose: 650 mg Documented By: rajni Admin: 01/15/25 22:26 Dose: 650 mg Documented By: ksmouna Admin: 01/15/25 12:55 Dose: 650 mg Documented By: ailyn Admin: 01/15/25 04:10 Dose: 650 mg Documented By: Admin: 01/14/25 03:52 Dose: 650 mg Documented By: Admin: 01/13/25 20:38 Dose: 650 mg Documented By: melina Admin: 01/13/25 09:00 Dose: 650 mg Documented By: Admin: 01/13/25 03:41 Dose: 650 mg Documented By: heb Admin: 01/12/25 21:34 Dose: 650 mg Documented By: reshmab Admin: 01/12/25 09:38 Dose: 650 mg Documented By: Admin: 01/12/25 06:00 Dose: 650 mg Documented By: melina Clobazam (Clobazam 10 Mg Tab) 10 mg PO HS JAMES Stop: 02/11/25 20:59 Last Admin: 01/15/25 20:00 Dose: 10 mg Documented By: Admin: 01/14/25 21:00 Dose: 10 mg Documented By: Admin: 01/13/25 20:38 Dose: 10 mg Documented By: melina Admin: 01/12/25 21:35 Dose: 10 mg Documented By: melina Finasteride (Finasteride 5 Mg Tab) 5 mg PO QAM JAMES Stop: 02/11/25 08:59 Last Admin: 01/16/25 08:17 Dose: 5 mg Documented By: Admin: 01/15/25 07:27 Dose: 5 mg Documented By: Admin: 01/14/25 08:42 Dose: 5 mg Documented By: Admin: 01/13/25 09:02 Dose: 5 mg Documented By: Admin: 01/12/25 10:08 Dose: 5 mg Documented By: MARSHALL Fluticasone Propionate (Fluticasone Propionate Na Spr 16 Gm Btl) 1 sprays NA BID JAMES Stop: 02/11/25 08:59 Last Admin: 01/16/25 08:17 Dose: 1 sprays Documented By: Admin: 01/15/25 20:02 Dose: 1 sprays Documented By: Admin: 01/15/25 07:28 Dose: 1 sprays Documented By: Admin: 01/14/25 21:01 Dose: 1 sprays Documented By: Admin: 01/14/25 08:43 Dose: 1 sprays Documented By: Admin: 01/13/25 20:38 Dose: 1 sprays Documented By: melina Admin: 01/13/25 09:02 Dose: 1 sprays Documented By: Admin: 01/12/25 21:34 Dose: 1 sprays Documented By: melina Admin: 01/12/25 10:08 Dose: 1 sprays Documented By: MARSHALL Folic Acid (Folic Acid 1 Mg Tab) 1 mg PO DAILY JAMES Stop: 02/11/25 08:59 Last Admin: 01/16/25 08:17 Dose: 1 mg Documented By: Admin: 01/15/25 07:28 Dose: 1 mg Documented By: Admin: 01/14/25 08:42 Dose: 1 mg Documented By: Admin: 01/13/25 09:01 Dose: 1 mg Documented By: Admin: 01/12/25 10:07 Dose: 1 mg Documented By: MARSHALL Cefazolin Sodium (Ancef 2000mg) 2,000 mg in 15 mls @ 3.75 mls/min IV Q8H JAMES; Protocol Stop: 01/27/25 16:59 Last Admin: 01/16/25 08:21 Dose: 3.75 mls/min Documented By: Admin: 01/16/25 00:21 Dose: 3.75 mls/min Documented By: Admin: 01/15/25 18:03 Dose: 3.75 mls/min Documented By: ailyn Admin: 01/15/25 07:31 Dose: 3.75 mls/min Documented By: Admin: 01/15/25 00:17 Dose: 3.75 mls/min Documented By: Admin: 01/14/25 16:50 Dose: 3.75 mls/min Documented By: Admin: 01/14/25 08:47 Dose: 3.75 mls/min Documented By: Admin: 01/14/25 00:19 Dose: 3.75 mls/min Documented By: melina Admin: 01/13/25 18:09 Dose: 3.75 mls/min Documented By: MARSHALL Insulin Aspart (Insulin Aspart Per Unit Charge) 0 units SC ACHS JAMES Stop: 02/11/25 02:45 Last Admin: 01/16/25 12:30 Dose: 2 units Documented By: AGATHA Co-signed By: MARINA Admin: 01/16/25 09:43 Dose: 4 units Documented By: AGATHA Co-signed By: SYLVIA Admin: 01/15/25 20:40 Dose: Not Given Documented By: Admin: 01/15/25 18:03 Dose: 3 units Documented By: ailyn Co-signed By: BINTA Admin: 01/15/25 12:54 Dose: 1 units Documented By: ailyn Co-signed By: BINTA Admin: 01/15/25 08:47 Dose: 3 units Documented By: ailyn Co-signed By: BINTA Admin: 01/14/25 21:13 Dose: 1 units Documented By: CHUCK Co-signed By: Juni Admin: 01/14/25 17:31 Dose: 5 units Documented By: BOO Co-signed By: PADMINI Admin: 01/14/25 13:32 Dose: Not Given Documented By: Admin: 01/14/25 08:47 Dose: 3 units Documented By: BOO Co-signed By: PADMINI Admin: 01/13/25 20:38 Dose: Not Given Documented By: melina Co-signed By: TARAN Admin: 01/13/25 18:09 Dose: 2 units Documented By: ASA Co-signed By: DTT Admin: 01/13/25 13:53 Dose: 2 units Documented By: ASA Co-signed By: DTT Admin: 01/13/25 08:58 Dose: 3 units Documented By: MARSHALL Co-signed By: ASHU Admin: 01/12/25 21:35 Dose: Not Given Documented By: melina Co-signed By: TARAN Admin: 01/12/25 18:31 Dose: Not Given Documented By: Admin: 01/12/25 13:42 Dose: 5 units Documented By: ASA Co-signed By: IVETTE Admin: 01/12/25 09:39 Dose: 3 units Documented By: ASA Co-signed By: KKS Admin: 01/12/25 03:30 Dose: Not Given Documented By: BONILLA Co-signed By: melina Levetiracetam (Levetiracetam 500 Mg Tab) 1,000 mg PO BID JAMES Stop: 02/11/25 08:59 Last Admin: 01/16/25 08:17 Dose: 1,000 mg Documented By: Admin: 01/15/25 20:01 Dose: 1,000 mg Documented By: Admin: 01/15/25 07:27 Dose: 1,000 mg Documented By: Admin: 01/14/25 21:01 Dose: 1,000 mg Documented By: Admin: 01/14/25 08:42 Dose: 1,000 mg Documented By: Admin: 01/13/25 20:37 Dose: 1,000 mg Documented By: melina Admin: 01/13/25 09:01 Dose: 1,000 mg Documented By: Admin: 01/12/25 21:33 Dose: 1,000 mg Documented By: melina Admin: 01/12/25 10:05 Dose: 1,000 mg Documented By: MARSHALL Levothyroxine Sodium (Levothyroxine Sodium 112 Mcg Tablet) 112 mcg PO DAILYBB JAMES Stop: 02/11/25 06:29 Last Admin: 01/16/25 05:28 Dose: 112 mcg Documented By: Admin: 01/15/25 05:35 Dose: 112 mcg Documented By: Admin: 01/14/25 06:36 Dose: 112 mcg Documented By: melina Admin: 01/13/25 05:52 Dose: 112 mcg Documented By: melina Admin: 01/12/25 05:54 Dose: 112 mcg Documented By: melina Melatonin (Melatonin 3 Mg Tab) 3 mg PO HS PRN PRN Reason: Sleep Stop: 02/11/25 22:39 Last Admin: 01/15/25 20:01 Dose: 3 mg Documented By: Admin: 01/14/25 21:00 Dose: 3 mg Documented By: Admin: 01/13/25 20:37 Dose: 3 mg Documented By: melina Admin: 01/12/25 23:18 Dose: 3 mg Documented By: TARAN Senna/Docusate Sodium (Docusate Sodium/Senna 50/8.6mg Tab) 2 tab PO BID JAMES Stop: 02/11/25 08:59 Last Admin: 01/16/25 08:22 Dose: 2 tab Documented By: Admin: 01/15/25 20:00 Dose: 2 tab Documented By: Admin: 01/15/25 07:27 Dose: 2 tab Documented By: Admin: 01/14/25 21:00 Dose: 2 tab Documented By: Admin: 01/14/25 08:41 Dose: 2 tab Documented By: Admin: 01/13/25 20:37 Dose: 2 tab Documented By: melina Admin: 01/13/25 09:23 Dose: 2 tab Documented By: Admin: 01/12/25 21:33 Dose: 2 tab Documented By: melina Admin: 01/12/25 10:06 Dose: 2 tab Documented By: MARSHALL Sennosides (Senna 8.6 Mg Tab) 8.6 mg PO HS JAMES Stop: 02/11/25 20:59 Last Admin: 01/15/25 20:01 Dose: 8.6 mg Documented By: Admin: 01/14/25 21:00 Dose: 8.6 mg Documented By: Admin: 01/13/25 20:38 Dose: 8.6 mg Documented By: melina Admin: 01/12/25 21:44 Dose: 8.6 mg Documented By: melina Venlafaxine HCl (Venlafaxine Hcl Xr 150 Mg Capxr) 150 mg PO QAM JAMES Stop: 02/11/25 08:59 Last Admin: 01/16/25 08:17 Dose: 150 mg Documented By: Admin: 01/15/25 07:28 Dose: 150 mg Documented By: Admin: 01/14/25 08:42 Dose: 150 mg Documented By: Admin: 01/13/25 09:01 Dose: 150 mg Documented By: Admin: 01/12/25 10:06 Dose: 150 mg Documented By: MARSHALL Vitamin D (Cholecalciferol 25 Mcg (1000 Units) Tab) 25 mcg PO DAILY JAMES Stop: 02/11/25 08:59 Last Admin: 01/16/25 08:16 Dose: 25 mcg Documented By: Admin: 01/15/25 07:27 Dose: 25 mcg Documented By: Admin: 01/14/25 08:42 Dose: 25 mcg Documented By: Admin: 01/13/25 09:01 Dose: 25 mcg Documented By: Admin: 01/12/25 10:07 Dose: 25 mcg Documented By: MARSHALL
[2025-01-17 11:20] LABS: Hematocrit (blood only) 36.0 % (42.0-52.0); Hemoglobin 11.5 g/dl (14.0-18.0); Mean Corpuscular Hemoglobin 28.5 pg (25.0-34.0); Mean Corpuscular Volume 89.1 fL (80.0-100.0); Platelet Count 561 K/uL (130-400); RDW Standard Deviation 44.0 fL (36.4-46.3); Red Blood Count 4.04 M/uL (4.70-6.10); White Blood Count 14.73 K/ul (4.8-10.8)
[2025-01-17 11:35] LABS: Anion Gap 7.0 (3-11); Blood Urea Nitrogen 20.0 mg/dl (6-23); Calcium 8.7 mg/dl (8.6-10.3); Carbon Dioxide 27.0 mmol/L (21-32); Chloride 102.0 mmol/L (98-107); Creatinine Clr Calc Pharmacy 69.8 ml/min; Glucose 73.0 mg/dl (70-99(Fasting)); Potassium 4.4 mmol/L (3.5-5.1); Sodium 136.0 mmol/L (136-145)
--- NOTE | 2025-01-17 13:46 | Hospitalist Progress Note ---
Date of Service January 17, 2025 Assessment & Plan (1) Severe sepsis: Plan: Assessment and plan below following discussion of case with ED provider and reviewing patient history/pertinent normal/abnormal diagnostic test results. Severe sepsis Metabolic Encephalopathy MSSA UTI -mentation improved -ID consulted, appreciate recs -continue cefazolin x7-10 days -repeat blood cultures ordered, negative so far -PT/OT recommending SNF, medically ready for discharge at this time Abnormal CT chest finding There is coronary artery atherosclerosis. 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, patient follows with [facility] Endocrinology, stable tumor measurement on MRI as per outpatient note from last visit in 2023 oligodendroglioma status post surgery/chemoradiation, stable disease, patient follows with [facility] Neurosurgery and Oncology acromegaly central hypothyroidism, patient euthyroid DM 2 diet-controlled, documented on outpatient Endo notes, patient unaware of diagnosis, hemoglobin A1c of 6.3 last year chronic anemia, hemoglobin at baseline Recurrent falls secondary to ambulatory dysfunction, recent traumatic rib fractures/hemothorax/retroperitoneal hemorrhage, patient [facility] a [facility] living facility may not be appropriate for his disability. I spent a total of 40 minutes in direct patient care, including [id number] time with the patient and/or family, reviewing medical records, ordering and reviewing diagnostic tests, and coordinating care with other healthcare providers. This time includes: history taking, physical examination, medical decision making, counseling, ECG interpretation, imaging interpretation, lab interpretation, orders, and education, excluding time spent in the performance of separately billed services. Admission and Anticipated Discharge Date Admission Date: January 11, 2025 Subjective Patient seen and examined at bedside. Patient doing well today and walking around the unit. Review of Systems Review of Systems: CONSTITUTIONAL: fatigue, weakness, improving EYES: Patient denies any visual symptoms. EARS, NOSE, AND THROAT: No difficulties with hearing. No symptoms of rhinitis or sore throat. CARDIOVASCULAR: Patient denies chest pains, palpitations, orthopnea and paroxysmal nocturnal dyspnea. RESPIRATORY: No dyspnea on exertion, no wheezing or cough. GI: No nausea, vomiting, diarrhea, constipation, abdominal pain, hematochezia or melena. : No urinary hesitancy or dribbling. No nocturia or urinary frequency. No abnormal urethral discharge. MUSCULOSKELETAL: No myalgias or arthralgias. NEUROLOGIC: No chronic headaches, no seizures. Patient denies numbness, tingling or weakness. PSYCHIATRIC: Patient denies problems with mood disturbance. No problems with anxiety. ENDOCRINE: No excessive urination or excessive thirst. DERMATOLOGIC: Patient denies any rashes or skin changes. Physical Exam Physical Exam: Gen: A&O 3 NAD HEENT: NCAT, EOMI, not icteric. External ears normal. No rhinorrhea. Moist mucous membranes. Neck: Supple, full range of motion, no observable masses, No meningeal sign. Lungs: dimished lung sounds left lung CV: RRR, no edema. Abdomen: Soft, nondistended, No rebound tenderness. MSK: No joint swelling, no redness. Skin: No rashes, petechiae, lesions. Normal color per patient. Neuro: Normal Gait, Grossly intact. Psych: Appropriate for situation Results & Data Results & Data Vital Signs (Past 12 Hours) Vital Signs Temp Pulse Resp BP Pulse Ox Pulse Ox O2 Del Method 01/17/25 08:26 94 01/17/25 08:13 Room Air 01/17/25 07:10 36.6 C 88 17 165/106 H 97 Room Air O2 Del Method 01/17/25 08:26 Room Air 01/17/25 08:13 01/17/25 07:10 Laboratory Results -personally reviewed,
[2025-01-17 14:59] LABS: Hematocrit (blood only) 35.3 % (42.0-52.0); Hemoglobin 11.4 g/dl (14.0-18.0); Immature Granulocytes # (auto) 0.29 K/uL (0.01-0.20); Immature Granulocytes % (auto) 2.1 %; Mean Corpuscular Hemoglobin 28.2 pg (25.0-34.0); Mean Corpuscular Volume 87.4 fL (80.0-100.0); Platelet Count 537 K/uL (130-400); RDW Standard Deviation 43.2 fL (36.4-46.3); Red Blood Count 4.04 M/uL (4.70-6.10); White Blood Count 13.95 K/ul (4.8-10.8)
[2025-01-18 07:29] VITALS: BP 144/89; PULSE 85; RESP 18; TEMP 97.3; O2SAT 95
--- NOTE | 2025-01-18 08:49 | XRay Report ---
XR chest 1V portable CLINICAL HISTORY: worsening leukocytosis COMPARISON STUDY: 01/11/2025 FINDINGS: Heart size and pulmonary vasculature are normal. Stable mild elevation of the left hemidiap hragm. Stable mild atelectasis and trace pleural effusion at the left lung base. No other consolidati on or pleural effusion seen. No pneumothorax. Stable left rib fractures. IMPRESSION: Stable exam. No adverse change seen. ACT 112: Negative or not required by law. Electronically signed by: Isai Avendano M.D. 01/18/2025 8:48 AM
[2025-01-18 09:04] LABS: Hematocrit (blood only) 37.2 % (42.0-52.0); Hemoglobin 11.6 g/dl (14.0-18.0); Mean Corpuscular Hemoglobin 28.0 pg (25.0-34.0); Mean Corpuscular Volume 89.9 fL (80.0-100.0); Platelet Count 561 K/uL (130-400); RDW Standard Deviation 43.6 fL (36.4-46.3); Red Blood Count 4.14 M/uL (4.70-6.10); White Blood Count 13.81 K/ul (4.8-10.8)
[2025-01-18 09:20] LABS: Anion Gap 8.0 (3-11); Blood Urea Nitrogen 21.0 mg/dl (6-23); Calcium 8.6 mg/dl (8.6-10.3); Carbon Dioxide 26.0 mmol/L (21-32); Chloride 103.0 mmol/L (98-107); Creatinine Clr Calc Pharmacy 71.2 ml/min; Glucose 128.0 mg/dl (70-99(Fasting)); Potassium 4.1 mmol/L (3.5-5.1); Sodium 137.0 mmol/L (136-145)
[2025-01-18 12:10] LABS: Appearance Urine Clear (Clear); Glucose Urine UA Negative (Negative)
--- NOTE | 2025-01-18 13:45 | Hospitalist Progress Note ---
Date of Service January 18, 2025 Assessment & Plan (1) Severe sepsis: Plan: Assessment and plan below following discussion of case with ED provider and reviewing patient history/pertinent normal/abnormal diagnostic test results. Severe sepsis, resolved Metabolic Encephalopathy, resolved MSSA UTI -mentation improved -ID consulted, appreciate recs -s/p course of cefazolin x7 days -PT/OT recommending SNF, medically ready for discharge at this time, awaiting precert Abnormal CT chest finding There is coronary artery atherosclerosis. 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, patient follows with [facility] Endocrinology, stable tumor measurement on MRI as per outpatient note from last visit in 2023 oligodendroglioma status post surgery/chemoradiation, stable disease, patient follows with [facility] Neurosurgery and Oncology acromegaly central hypothyroidism, patient euthyroid DM 2 diet-controlled, documented on outpatient Endo notes, patient unaware of diagnosis, hemoglobin A1c of 6.3 last year chronic anemia, hemoglobin at baseline Recurrent falls secondary to ambulatory dysfunction, recent traumatic rib fractures/hemothorax/retroperitoneal hemorrhage, patient [place] [facility] assisted living facility may not be appropriate for his disability. I spent a total of 35 minutes in direct patient care, including [id number] time with the patient and/or family, reviewing medical records, ordering and reviewing diagnostic tests, and coordinating care with other healthcare providers. This time includes: history taking, physical examination, medical decision making, counseling, ECG interpretation, imaging interpretation, lab interpretation, orders, and education, excluding time spent in the performance of separately billed services. Admission and Anticipated Discharge Date Admission Date: January 11, 2025 Subjective Patient seen and examined at bedside. Patient doing well today, looking forward to discharge to SNF Review of Systems Review of Systems: CONSTITUTIONAL: fatigue, weakness, improving EYES: Patient denies any visual symptoms. EARS, NOSE, AND THROAT: No difficulties with hearing. No symptoms of rhinitis or sore throat. CARDIOVASCULAR: Patient denies chest pains, palpitations, orthopnea and paroxysmal nocturnal dyspnea. RESPIRATORY: No dyspnea on exertion, no wheezing or cough. GI: No nausea, vomiting, diarrhea, constipation, abdominal pain, hematochezia or melena. : No urinary hesitancy or dribbling. No nocturia or urinary frequency. No abnormal urethral discharge. MUSCULOSKELETAL: No myalgias or arthralgias. NEUROLOGIC: No chronic headaches, no seizures. Patient denies numbness, tingling or weakness. PSYCHIATRIC: Patient denies problems with mood disturbance. No problems with anxiety. ENDOCRINE: No excessive urination or excessive thirst. DERMATOLOGIC: Patient denies any rashes or skin changes. Physical Exam Physical Exam: Gen: A&O 3 NAD HEENT: NCAT, EOMI, not icteric. External ears normal. No rhinorrhea. Moist mucous membranes. Neck: Supple, full range of motion, no observable masses, No meningeal sign. Lungs: dimished lung sounds left lung CV: RRR, no edema. Abdomen: Soft, nondistended, No rebound tenderness. MSK: No joint swelling, no redness. Skin: No rashes, petechiae, lesions. Normal color per patient. Neuro: Normal Gait, Grossly intact. Psych: Appropriate for situation Results & Data Results & Data Vital Signs (Past 12 Hours) Vital Signs Temp Pulse Resp BP Pulse Ox O2 Del Method 01/18/25 09:15 Room Air 01/18/25 07:29 36.3 C L 85 18 144/89 H 95 Room Air Laboratory Results -personally reviewed, WBC downtrending, UA negative for infection Medications Administered Acetaminophen (Acetaminophen 325 Mg Tab) 650 mg PO QID PRN PRN Reason: pain/fever Stop: 02/11/25 01:13 Last Admin: 01/18/25 02:55 Dose: 650 mg Documented By: Admin: 01/17/25 20:11 Dose: 650 mg Documented By: Admin: 01/17/25 09:32 Dose: 650 mg Documented By: Admin: 01/17/25 02:43 Dose: 650 mg Documented By: Admin: 01/16/25 19:57 Dose: 650 mg Documented By: Admin: 01/16/25 05:59 Dose: 650 mg Documented By: rajni Admin: 01/15/25 22:26 Dose: 650 mg Documented By: rajni Admin: 01/15/25 12:55 Dose: 650 mg Documented By: ailyn Admin: 01/15/25 04:10 Dose: 650 mg Documented By: Admin: 01/14/25 03:52 Dose: 650 mg Documented By: Admin: 01/13/25 20:38 Dose: 650 mg Documented By: melina Admin: 01/13/25 09:00 Dose: 650 mg Documented By: Admin: 01/13/25 03:41 Dose: 650 mg Documented By: melina Admin: 01/12/25 21:34 Dose: 650 mg Documented By: melina Admin: 01/12/25 09:38 Dose: 650 mg Documented By: Admin: 01/12/25 06:00 Dose: 650 mg Documented By: melina Clobazam (Clobazam 10 Mg Tab) 10 mg PO HS JAMES Stop: 02/11/25 20:59 Last Admin: 01/17/25 20:12 Dose: 10 mg Documented By: Admin: 01/16/25 19:57 Dose: 10 mg Documented By: Admin: 01/15/25 20:00 Dose: 10 mg Documented By: Admin: 01/14/25 21:00 Dose: 10 mg Documented By: Admin: 01/13/25 20:38 Dose: 10 mg Documented By: melina Admin: 01/12/25 21:35 Dose: 10 mg Documented By: melina Finasteride (Finasteride 5 Mg Tab) 5 mg PO QAM JAMES Stop: 02/11/25 08:59 Last Admin: 01/18/25 09:10 Dose: 5 mg Documented By: Admin: 01/17/25 08:36 Dose: 5 mg Documented By: Admin: 01/16/25 08:17 Dose: 5 mg Documented By: Admin: 01/15/25 07:27 Dose: 5 mg Documented By: Admin: 01/14/25 08:42 Dose: 5 mg Documented By: Admin: 01/13/25 09:02 Dose: 5 mg Documented By: Admin: 01/12/25 10:08 Dose: 5 mg Documented By: MARSHALL Fluticasone Propionate (Fluticasone Propionate Na Spr 16 Gm Btl) 1 sprays NA BI D JAMES Stop: 02/11/25 08:59 Last Admin: 01/18/25 09:10 Dose: 1 sprays Documented By: Admin: 01/17/25 20:12 Dose: 1 sprays Documented By: Admin: 01/17/25 08:37 Dose: 1 sprays Documented By: Admin: 01/16/25 19:58 Dose: 1 sprays Documented By: Admin: 01/16/25 08:17 Dose: 1 sprays Documented By: Admin: 01/15/25 20:02 Dose: 1 sprays Documented By: Admin: 01/15/25 07:28 Dose: 1 sprays Documented By: Admin: 01/14/25 21:01 Dose: 1 sprays Documented By: Admin: 01/14/25 08:43 Dose: 1 sprays Documented By: Admin: 01/13/25 20:38 Dose: 1 sprays Documented By: melina Admin: 01/13/25 09:02 Dose: 1 sprays Documented By: Admin: 01/12/25 21:34 Dose: 1 sprays Documented By: melina Admin: 01/12/25 10:08 Dose: 1 sprays Documented By: MARSHALL Folic Acid (Folic Acid 1 Mg Tab) 1 mg PO DAILY JAMES Stop: 02/11/25 08:59 Last Admin: 01/18/25 09:09 Dose: 1 mg Documented By: Admin: 01/17/25 08:36 Dose: 1 mg Documented By: Admin: 01/16/25 08:17 Dose: 1 mg Documented By: Admin: 01/15/25 07:28 Dose: 1 mg Documented By: Admin: 01/14/25 08:42 Dose: 1 mg Documented By: Admin: 01/13/25 09:01 Dose: 1 mg Documented By: Admin: 01/12/25 10:07 Dose: 1 mg Documented By: MARSHALL Cefazolin Sodium (Ancef 2000mg) 2,000 mg in 15 mls @ 3.75 mls/min IV Q8H [facility]; Protocol Stop: 01/27/25 16:59 Last Admin: 01/18/25 09:10 Dose: 3.75 mls/min Documented By: Admin: 01/18/25 00:08 Dose: 3.75 mls/min Documented By: Admin: 01/17/25 18:03 Dose: 3.75 mls/min Documented By: Admin: 01/17/25 08:34 Dose: 3.75 mls/min Documented By: Admin: 01/17/25 00:11 Dose: 3.75 mls/min Documented By: Admin: 01/16/25 16:39 Dose: 3.75 mls/min Documented By: Admin: 01/16/25 08:21 Dose: 3.75 mls/min Documented By: Admin: 01/16/25 00:21 Dose: 3.75 mls/min Documented By: Admin: 01/15/25 18:03 Dose: 3.75 mls/min Documented By: ailyn Admin: 01/15/25 07:31 Dose: 3.75 mls/min Documented By: Admin: 01/15/25 00:17 Dose: 3.75 mls/min Documented By: Admin: 01/14/25 16:50 Dose: 3.75 mls/min Documented By: Admin: 01/14/25 08:47 Dose: 3.75 mls/min Documented By: Admin: 01/14/25 00:19 Dose: 3.75 mls/min Documented By: melina Admin: 01/13/25 18:09 Dose: 3.75 mls/min Documented By: MARSHALL Insulin Aspart (Insulin Aspart Per Unit Charge) 0 units SC ACHS JAMES Stop: 02/11/25 02:45 Last Admin: 01/18/25 12:51 Dose: Not Given Documented By: Admin: 01/18/25 09:10 Dose: 4 units Documented By: MARYA Co-signed By: MPS Admin: 01/17/25 21:10 Dose: Not Given Documented By: Admin: 01/17/25 17:52 Dose: Not Given Documented By: Admin: 01/17/25 12:31 Dose: Not Given Documented By: Admin: 01/17/25 08:34 Dose: 3 units Documented By: MIKY Co-signed By: KRISTIE Admin: 01/16/25 21:45 Dose: Not Given Documented By: Admin: 01/16/25 17:50 Dose: 3 units Documented By: AGATHA Co-signed By: SYLVIA Admin: 01/16/25 12:30 Dose: 2 units Documented By: AGATHA Co-signed By: MARINA Admin: 01/16/25 09:43 Dose: 4 units Documented By: AGATHA Co-signed By: SYLVIA Admin: 01/15/25 20:40 Dose: Not Given Documented By: Admin: 01/15/25 18:03 Dose: 3 units Documented By: ailyn Co-signed By: BINTA Admin: 01/15/25 12:54 Dose: 1 units Documented By: ailyn Co-signed By: BINTA Admin: 01/15/25 08:47 Dose: 3 units Documented By: ailyn Co-signed By: BINTA Admin: 01/14/25 21:13 Dose: 1 units Documented By: RES Co-signed By: [id number] Admin: 01/14/25 17:31 Dose: 5 units Documented By: BOO Co-signed By: PADMINI Admin: 01/14/25 13:32 Dose: Not Given Documented By: Admin: 01/14/25 08:47 Dose: 3 units Documented By: BOO Co-signed By: PADMINI Admin: 01/13/25 20:38 Dose: Not Given Documented By: melina Co-signed By: TARAN Admin: 01/13/25 18:09 Dose: 2 units Documented By: ASA Co-signed By: ERIN Admin: 01/13/25 13:53 Dose: 2 units Documented By: ASA Co-signed By: DTT Admin: 01/13/25 08:58 Dose: 3 units Documented By: MARSHALL Co-signed By: ASHU Admin: 01/12/25 21:35 Dose: Not Given Documented By: melina Co-signed By: TARAN Admin: 01/12/25 18:31 Dose: Not Given Documented By: Admin: 01/12/25 13:42 Dose: 5 units Documented By: ASA Co-signed By: IVETTE Admin: 01/12/25 09:39 Dose: 3 units Documented By: ASA Co-signed By: IVETTE Admin: 01/12/25 03:30 Dose: Not Given Documented By: BONLILA Co-signed By: melina Levetiracetam (Levetiracetam 500 Mg Tab) 1,000 mg PO BID JAMES Stop: 02/11/25 08:59 Last Admin: 01/18/25 09:09 Dose: 1,000 mg Documented By: Admin: 01/17/25 20:12 Dose: 1,000 mg Documented By: MJRuth Admin: 01/17/25 08:36 Dose: 1,000 mg Documented By: Admin: 01/16/25 19:57 Dose: 1,000 mg Documented By: Admin: 01/16/25 08:17 Dose: 1,000 mg Documented By: Admin: 01/15/25 20:01 Dose: 1,000 mg Documented By: Admin: 01/15/25 07:27 Dose: 1,000 mg Documented By: Admin: 01/14/25 21:01 Dose: 1,000 mg Documented By: Admin: 01/14/25 08:42 Dose: 1,000 mg Documented By: Admin: 01/13/25 20:37 Dose: 1,000 mg Documented By: melina Admin: 01/13/25 09:01 Dose: 1,000 mg Documented By: Admin: 01/12/25 21:33 Dose: 1,000 mg Documented By: melina Admin: 01/12/25 10:05 Dose: 1,000 mg Documented By: MARSHALL Levothyroxine Sodium (Levothyroxine Sodium 112 Mcg Tablet) 112 mcg PO DAILYBB JAMES Stop: 02/11/25 06:29 Last Admin: 01/18/25 05:00 Dose: 112 mcg Documented By: Admin: 01/17/25 06:12 Dose: 112 mcg Documented By: Admin: 01/16/25 05:28 Dose: 112 mcg Documented By: Admin: 01/15/25 05:35 Dose: 112 mcg Documented By: Admin: 01/14/25 06:36 Dose: 112 mcg Documented By: melina Admin: 01/13/25 05:52 Dose: 112 mcg Documented By: melina Admin: 01/12/25 05:54 Dose: 112 mcg Documented By: melina Melatonin (Melatonin 3 Mg Tab) 3 mg PO HS PRN PRN Reason: Sleep Stop: 02/11/25 22:39 Last Admin: 01/18/25 00:08 Dose: 3 mg Documented By: Admin: 01/16/25 19:57 Dose: 3 mg Documented By: Admin: 01/15/25 20:01 Dose: 3 mg Documented By: Admin: 01/14/25 21:00 Dose: 3 mg Documented By: Admin: 01/13/25 20:37 Dose: 3 mg Documented By: melina Admin: 01/12/25 23:18 Dose: 3 mg Documented By: TARAN Senna/Docusate Sodium (Docusate Sodium/Senna 50/8.6mg Tab) 2 tab PO BID JAMES Stop: 02/11/25 08:59 Last Admin: 01/18/25 09:10 Dose: Not Given Documented By: Admin: 01/17/25 20:12 Dose: 2 tab Documented By: Admin: 01/17/25 08:34 Dose: 2 tab Documented By: Admin: 01/16/25 19:57 Dose: 2 tab Documented By: Admin: 01/16/25 08:22 Dose: 2 tab Documented By: Admin: 01/15/25 20:00 Dose: 2 tab Documented By: Admin: 01/15/25 07:27 Dose: 2 tab Documented By: Admin: 01/14/25 21:00 Dose: 2 tab Documented By: Admin: 01/14/25 08:41 Dose: 2 tab Documented By: Admin: 01/13/25 20:37 Dose: 2 tab Documented By: melina Admin: 01/13/25 09:23 Dose: 2 tab Documented By: Admin: 01/12/25 21:33 Dose: 2 tab Documented By: melina Admin: 01/12/25 10:06 Dose: 2 tab Documented By: MARSHALL Sennosides (Senna 8.6 Mg Tab) 8.6 mg PO HS JAMES Stop: 02/11/25 20:59 Last Admin: 01/17/25 20:12 Dose: Not Given Documented By: Admin: 01/16/25 19:57 Dose: 8.6 mg Documented By: Admin: 01/15/25 20:01 Dose: 8.6 mg Documented By: Admin: 01/14/25 21:00 Dose: 8.6 mg Documented By: Admin: 01/13/25 20:38 Dose: 8.6 mg Documented By: melina Admin: 01/12/25 21:44 Dose: 8.6 mg Documented By: melina Venlafaxine HCl (Venlafaxine Hcl Xr 150 Mg Capxr) 150 mg PO QAM JAMES Stop: 02/11/25 08:59 Last Admin: 01/18/25 09:10 Dose: 150 mg Documented By: Admin: 01/17/25 08:37 Dose: 150 mg Documented By: Admin: 01/16/25 08:17 Dose: 150 mg Documented By: Admin: 01/15/25 07:28 Dose: 150 mg Documented By: Admin: 01/14/25 08:42 Dose: 150 mg Documented By: Admin: 01/13/25 09:01 Dose: 150 mg Documented By: Admin: 01/12/25 10:06 Dose: 150 mg Documented By: MARSHALL Vitamin D (Cholecalciferol 25 Mcg (1000 Units) Tab) 25 mcg PO DAILY JAMES Stop: 02/11/25 08:59 Last Admin: 01/18/25 09:10 Dose: 25 mcg Documented By: Admin: 01/17/25 08:36 Dose: 25 mcg Documented By: Admin: 01/16/25 08:16 Dose: 25 mcg Documented By: Admin: 01/15/25 07:27 Dose: 25 mcg Documented By: Admin: 01/14/25 08:42 Dose: 25 mcg Documented By: Admin: 01/13/25 09:01 Dose: 25 mcg Documented By: Admin: 01/12/25 10:07 Dose: 25 mcg Documented By: MARSHALL
--- NOTE | 2025-01-21 17:33 | Discharge Summary ---
Discharge Summary Date of Service January 21, 2025 Principal Dx & Hospital Course #1 = Principal Diagnosis (1) Severe sepsis: Assessment and plan below following discussion of case with ED provider and reviewing patient history/pertinent normal/abnormal diagnostic test results. Severe sepsis, resolved Metabolic Encephalopathy, resolved MSSA UTI -mentation improved -ID consulted, appreciate recs -s/p course of cefazolin x7 days -PT/OT recommending SNF, medically ready for discharge at this time, awaiting precert Abnormal CT chest finding There is coronary artery atherosclerosis. 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, patient follows with [facility] Endocrinology, stable tumor measurement on MRI as per outpatient note from last visit in 2023 oligodendroglioma status post surgery/chemoradiation, stable disease, patient follows with [facility] Neurosurgery and Oncology acromegaly central hypothyroidism, patient euthyroid DM 2 diet-controlled, documented on outpatient Endo notes, patient unaware of diagnosis, hemoglobin A1c of 6.3 last year chronic anemia, hemoglobin at baseline Recurrent falls secondary to ambulatory dysfunction, recent traumatic rib fractures/hemothorax/retroperitoneal hemorrhage, patient [place] assisted living facility may not be appropriate for his disability. I spent a total of 35 minutes in direct patient care, including [id number] time with the patient and/or family, reviewing medical records, ordering and reviewing diagnostic tests, and coordinating care with other healthcare providers. This time includes: history taking, physical examination, medical decision making, counseling, ECG interpretation, imaging interpretation, lab interpretation, orders, and education, excluding time spent in the performance of separately billed services. Notes For Next Care Provider 69 yo male with pmhx of seizure disorder, pituitary tumor, oligodendroglioma status post surgery/chemoradiation, neurocognitive impairment as per records, LETA/nocturnal hypoxemia as per records, acromegaly, central hypothyroidism, DM 2 diet-controlled, chronic anemia (baseline hemoglobin 12-13), BPH, recent history of traumatic rib fractures/retroperitoneal hemorrhage who presented for sepsis. Admitted for sepsis. Found to have MSSA UTI and bacteremia. ID consulted, recommended abx. PT/OT consulted, recommended SNF. patient medically stable for discharge to SNF Medication Changes From Visit -see below Admission HPI Per Admitting Provider History obtained from patient and records. Medical history significant for seizure disorder, pituitary tumor, oligodendroglioma status post surgery/chemoradiation, neurocognitive impairment as per records, LETA/nocturnal hypoxemia as per records, acromegaly, central hypothyroidism, DM 2 diet-controlled, chronic anemia (baseline hemoglobin 12-13), BPH, recent history of traumatic rib fractures/retroperitoneal hemorrhage, recurrent falls, ambulatory dysfunction. Recent [facility] confinement November 2024 for mechanical fall/syncope at [facility] assisted living facility. Recent [facility] admission December 27 to January 11, 2025 for multiple left-sided rib fractures/hemothorax, chest and abdominal wall contusions, retroperitoneal hemorrhage secondary to fall after being transferred from [facility] ER. No operative management. Patient discharged back to [facility] yesterday. Patient had another unwitnessed fall at facility today. Patient found on the floor. Patient does not recall mechanism of fall. Possible head trauma. Patient more confused than usual. No witnessed seizures. No unusual pain as per patient. Denies cough, abdominal pain, diarrhea, dysuria symptoms. Noted to be febrile and tachycardic. O2 sats 80s upon arrival at the ER. IV ceftriaxone administered at the ER. Medical History as above Surgical History : Brain tumor surgery, hernia repair Family History : Heart disease, stomach cancer Personal/Social history : Non-smoker, no EtOH intake, disabled Discharge Exam Gen: A&O 3 NAD HEENT: NCAT, EOMI, not icteric. External ears normal. No rhinorrhea. Moist mucous membranes. Neck: Supple, full range of motion, no observable masses, No meningeal sign. Lungs: dimished lung sounds left lung CV: RRR, no edema. Abdomen: Soft, nondistended, No rebound tenderness. MSK: No joint swelling, no redness. Skin: No rashes, petechiae, lesions. Normal color per patient. Neuro: Normal Gait, Grossly intact. Psych: Appropriate for situation Updated Medication List Medication Instructions Recorded Confirmed Type venlafaxine 150 mg tablet,extended 150 mg PO QAM 10/30/20 01/11/25 History release 24 hr sennosides 8.6 mg tablet (senna) 8.6 mg PO HS 09/26/21 01/11/25 History levetiracetam 500 mg tablet 1,000 mg (2 x 500 mg) PO BID 90 12/04/22 01/11/25 Rx days #360 tabs clobazam 10 mg tablet (Onfi) 10 mg PO HS 30 days #30 tabs 11/19/23 01/11/25 Rx acetaminophen 325 mg tablet 325 mg PO Q4 PRN Pain 11/13/24 01/11/25 History fluticasone propionate 50 1 spray intranasal BID 11/13/24 01/11/25 History mcg/actuation nasal spray,suspension loratadine 10 mg tablet 10 mg PO DAILY 11/13/24 01/11/25 History levothyroxine 137 mcg tablet 112 mcg PO DAILYBB 12/16/24 01/11/25 History cholecalciferol (vitamin D3) 25 25 mcg PO DAILY 01/11/25 01/11/25 History mcg (1,000 unit) tablet (Vitamin D3) cyanocobalamin (vitamin B-12) 1,000 mcg IM WK 01/11/25 01/11/25 History 1,000 mcg/mL injection solution dutasteride 0.5 mg capsule 0.5 mg PO QAM 01/11/25 01/11/25 History fluticasone propionate 50 1 spray intranasal BID PRN 01/11/25 01/11/25 History mcg/actuation nasal rhinorrhea spray,suspension folic acid 1 mg tablet 1 mg PO DAILY 01/11/25 01/11/25 History pyridoxine (vitamin B6) 100 mg 100 mg PO DAILY 01/11/25 01/11/25 History tablet (Vitamin B-6) sennosides 8.6 mg-docusate sodium 2 tab-cap PO BID 01/11/25 01/11/25 History 50 mg tablet (Senexon-S) Hospital Stay Data Consultations 01/11/25 23:54 ED Decision to Admit Stat 01/12/25 16:38 Consult Infectious Diseases Routine Diagnostic Imagining Performed 01/11/25 21:28 CT abd pelvis IV con only Stat CT cervical spine wo con Stat CT chest diagnostic w con Stat CT head/brain wo con Stat 01/11/25 22:02 CT thoracic spine w con Stat 01/15/25 14:19 CT head/brain wo con Urgent Pending Results Patient Have Any Pending Studies at Discharge: No Discharge Instructions Given to Patient (Per Discharging Provider) Diagnosis: MSSA bacteremia 2/2 complicated UTI Follow Ups: PCP, infectious disease Total Time Total Time Spent Total Time Spent (In Minutes): I spent a total of 35 minutes in direct patient care, including [id number] time with the patient and/or family, reviewing medical records, ordering and reviewing diagnostic tests, and coordinating care with other healthcare providers. This time includes: history taking, physical examination, medical decision making, counseling, ECG interpretation, imaging interpretation, lab interpretation, orders, and education, excluding time spent in the performance of separately billed services.
== END 2025-01-18 16:20 | DRG 871 ==
LOC: ED 21:07 → SUATTDRO 23:59 → 2W 23:59 → 3N 01-15 22:07
DX: G93.41 Metabolic encephalopathy; G47.33 Obstructive sleep apnea (adult) (pediatric); S22.42XA Multiple fractures of ribs, left side, initial encounter for closed fracture; R29.6 Repeated falls; Z79.890 Hormone replacement therapy; J98.11 Atelectasis; Y92.89 Other specified places as the place of occurrence of the external cause; W18.30XA Fall on same level, unspecified, initial encounter; C71.9 Malignant neoplasm of brain, unspecified; R65.20 Severe sepsis without septic shock; A41.9 Sepsis, unspecified organism; J96.91 Respiratory failure, unspecified with hypoxia; B95.61 Methicillin susceptible Staphylococcus aureus infection as the cause of diseases classified elsewhere; E03.8 Other specified hypothyroidism; Z92.3 Personal history of irradiation; Z99.81 Dependence on supplemental oxygen; N39.0 Urinary tract infection, site not specified; N40.0 Benign prostatic hyperplasia without lower urinary tract symptoms; G40.909 Epilepsy, unspecified, not intractable, without status epilepticus